=== PATIENT | male | born 1950 | race Caucasian/White ===

== ENCOUNTER → 2017-07-28 | Outpatient (CLI) | payer OTHER ==
[2017-07-28 12:04] LABS: BASO % 0.3 %; BASO ABS # 0.02 K/uL (0-0.2); COMPLETE YES; EOS % 2.6 %; HEMATOCRIT 45.1 % (42-52); IG% 0.2 %; LYMPH % 26.1 %; LYMPH ABS # 1.61 K/uL (1.2-3.4); MEAN CELL VOLUME 88.6 fL (80-100); MEAN CORPUSCULAR HEMOGLOBIN 31.2 pg (25-34); MEAN CORPUSCULAR HGB CONC 35.3 g/dl (32-36); MEAN PLATELET VOLUME 9.6 fL (7.4-10.4); MONO % 6.5 %; NEUT % 64.3 %; PLATELET COUNT 186 K/uL (130-400); RED BLOOD COUNT 5.09 M/uL (4.7-6.1); WHITE BLOOD COUNT 6.17 K/uL (4.8-10.8)
[2017-07-28 12:09] LABS: URINE APPEARANCE CLEAR (CLEAR); URINE BILIRUBIN NEG (NEG); URINE COLOR YELLOW; URINE EPITHELIAL CELL AUTO 20-30 /lpf (0-5); URINE NITRITE NEG (NEG); URINE SPECIFIC GRAVITY 1.012 (1.000-1.030); UROBILINOGEN NEG (NEG); ZZUR CULT IF INDIC CLEAN CATCH NO
[2017-07-28 12:12] LABS: MANUAL MICROSCOPIC REQUIRED? NO; REVIEW REQ? NO
[2017-07-28 12:24] LABS: ESTIMATED AVERAGE GLUCOSE 105 mg/dl; HA1C FLAG Normal (Normal)
[2017-07-28 12:41] LABS: ALT/SGPT 23 U/L (12-78); BLOOD UREA NITROGEN 21 mg/dl (7-18); BUN/CREATININE RATIO 17.1 (10-20); CALCIUM 9.8 mg/dl (8.5-10.1); CARBON DIOXIDE 32 mmol/L (21-32); CHLORIDE 105 mmol/L (98-107); CHOLESTEROL 179 mg/dl (0-200); GLUCOSE 104 mg/dl (70-99); MAGNESIUM 2.3 mg/dl (1.8-2.4); POTASSIUM 4.2 mmol/L (3.5-5.1); SODIUM 142 mmol/L (136-145); TRIGLYCERIDES 128 mg/dl (0-150); VERY LOW DENSITY LIPOPROT CALC 26 mg/dl
[2017-07-28 12:50] LABS: ALB/GLOB RATIO 1.2 (0.9-2); ALKALINE PHOSPHATASE 62 U/L (45-117); AST/SGOT 15 U/L (15-37); HDL CHOLESTEROL 45 mg/dl; LDL CHOLESTEROL CALCULATED 108 mg/dl
== END | disposition home or self-care (01) ==
LOC: C.LABBFT 07:54
PROVIDERS: ATTEND Internal Medicine
DX: I48.91 Unspecified atrial fibrillation (principal); R73.9 Hyperglycemia, unspecified; E78.5 Hyperlipidemia, unspecified; I10 Essential (primary) hypertension; Z12.5 Encounter for screening for malignant neoplasm of prostate

== ENCOUNTER 2023-03-17 19:11 | Inpatient (IN) ==
--- NOTE | 2023-03-17 19:18 | Emergency Department Note ---
Impression & Plan Renal failure, Prostate mass, Hypotension, Acute dehydration ED Provider Note NAME: LAZ LANDEROS AGE: 73 SEX: M : 1950 ARRIVES VIA: Ambulance INFORMANT: Patient, ED PROVIDER(S): Mick Keane MD CHIEF COMPLAINT: Fall, weakness MEDICAL DECISION MAKING: Patient presents due to concern for fall and weakness. EMS reported that office of aging was involved given the poor condition of the patient's mobile home. IV was established blood was obtained along with blood cultures and lactate. The patient does have a white count of 17 was ordered antibiotics. The patient's kidney function showed a creatinine of 9.8 with a BUN of 287. Potassium of 5.2. Patient is awake and does follow commands. CT noncontrast was ordered. I did speak with Dr. Pa with nephrology who recommended bicarb 150 mill equivalents and a liter of D5 to be given. I did ask nursing to obtain a bladder scan in case the patient was retaining. I did review the patient's CAT scan which did show urine in the bladder I did asked that a Link be placed. I did speak with the on-call hospital service Dr. Anderson and the patient was admitted to the medicine service. Do not believe it prudent at this time to rate control the patient's A-fib given the patient's likely significant dehydration. The patient has been ordered 2 L normal saline bolus but this had not yet been completed by the time he was admitted by the medicine service, patient did have mild anemia hemoglobin of 13. Normal platelet count. Patient CT did show bilateral hydroureteronephrosis with extension of the ureters to the level of the UVJ bilaterally. Likely urinary retention from possible ureteral stricture or abnormality involving the bladder wall. Prostate gland noted to be abnormal patient's troponin was 27.7. Critical Care: I have personally spent 37 minutes of critical care time in direct management of this patient. This includes bedside care, interpretation of diagnostic studies, and testing, discussion with consultants, patient, and family members, and other require inpatient management activities. This 37 minutes is in excess of all separately billable procedures. Prior /Outside records reviewed: None Differential diagnosis: ICH, acute renal failure, dehydration, sepsis, UTI, pneumonia, metabolic, electrolyte abnormalities, arrhythmia among others were considered Diagnostics, as interpreted by me: ECG: A-fib with RVR, rate 121, narrow QRS complex, normal axis no ST elevations. Cardiac monitoring: An order was placed for continuous cardiac monitoring. The monitor shows a rate of 122 with tachycardic and irregular irregular rhythm. Patient was placed on pulse oximetry Medical decision rules: None Imaging studies: See below HPI: Patient presents due to concern for possible fall. Patient reportedly had been visited by a friend he was not getting up and out of bed. He was not getting up to use the bathroom does present with EMS who was concerned about the patient's wellbeing as well as the state of his mobile home. Patient denies any head or neck pain but reportedly did have a fall and may have struck his head. The patient does not take blood thinners but has a known history of A-fib. Angi ent denies any abdominal pain. The patient does state he is generally weak. PAST MEDICAL HISTORY: See Below PAST SURGICAL HISTORY: See Below SOCIAL HISTORY: See Below HOME MEDICATIONS: See Below ALLERGIES: See Below VITALS: See Below PHYSICAL EXAMINATION: GENERAL: Fatigable in appearance, disheveled, wearing clothing covered in urine and feces. EYE EXAM: Normal conjunctiva. PERRL, no anisocoria and EOM's grossly intact w/o pain. Oropharynx: Dry mucous membranes, grossly normal dentition. NECK: Supple, no nuchal rigidity, no adenopathy, non-tender. No signs of meningismus. FROM of the neck with good chin to chest and neck extension. No stridor. LUNGS: Clear to auscultation. Normal chest wall mechanics. HEART: Irregular irregular and tachycardic, no MRG. ABDOMEN: Abdomen soft, non-tender, no masses, no rebound or guarding. BACK: No CVA TTP. SKIN: Areas of redness likely secondary to pressure over the buttock area without open sores UPPER EXTREMITIES: Upper extremities are grossly normal. LOWER EXTREMITIES: Grossly normal, no edema. NEURO EXAM: A&O x3, cranial nerves II-XII grossly intact, normal speech, moves all 4 extremities. Past Med/Surg History Medical History Abnormal blood chemistry Abnormal finding on thyroid function test Atrial fibrillation Hyperglycemia Hyperlipidemia Hypertension Male erectile disorder of organic origin Umbilical hernia Surgical History History of appendectomy History of cataract surgery History of tonsillectomy Family History Father Laryngeal cancer Social History Smoking Status: Former smoker Tobacco Type: Smokeless Tobacco (Dip or Chew) Second Hand Exposure: No; Do You Dip or Chew Tobacco: No; Tobacco Cessation Education Requested by Patient: No Hx Alcohol Use: No Hx Substance Use: No Preferred Language: Mongolian Communication Ability: Effective Production Planner Required: No Beliefs That Will Affect Care: None marital status: Single Current Living Situation: Alone Other Information That Helps Us Care for You: No Feels Safe at Home: Yes Safety Concerns: Feels Safe At This Time caffeine: No Dental Care, Regularly: No Physical Activity Frequency: Does not Exercise Seatbelt Use: never Sunscreen Use: Yes (Protective clothing ) Assistive Devices: Cane Allergies Allergies Allergy/AdvReac Type Severity Reaction Status Date / Time No Known Allergies Allergy Verified 03/17/23 20:42 Home Meds Home Medications Medication Instructions Recorded Confirmed amlodipine 10 mg tablet 10 mg PO QAM 03/17/23 03/17/23 hydrochlorothiazide 25 mg tablet 25 mg PO QAM 03/17/23 03/17/23 lisinopril 20 mg tablet 20 mg PO QAM 03/17/23 03/17/23 metoprolol succinate 100 mg 100 mg PO QAM 03/17/23 03/17/23 tablet,extended release 24 hr Results & Data (ED) Home Medications Current Medication List: was personally reviewed by me Laboratory Data Attestation: I reviewed the patient's lab results. 03/20/23 04:28 03/20/23 04:28 Lab Results 03/17/23 03/17/23 03/17/23 Range/Units 19:53 19:53 19:53 WBC 17.03 H (4.8-10.8) K/ul RBC 4.52 L (4.70-6.10) M/uL Hgb 13.1 L (14.0-18.0) g/dl Hct 37.4 L (42.0-52.0) % MCV 82.7 (80.0-100.0) fL MCH 29.0 (25.0-34.0) pg MCHC 35.0 (32.0-36.0) g/dL RDW Std Deviation 44.9 (36.4-46.3) fL RDW Coeff of Efrain 15.0 H (11.5-14.5) % Plt Count 374 (130-400) K/uL MPV 10.4 (9.4-12.4) fL Immature Gran % (Auto) 0.4 % Neut % (Auto) 85.6 % Lymph % (Auto) 8.2 % [place] % (Auto) 4.7 % Eos % (Auto) 0.8 % Baso % (Auto) 0.3 % Neut # (Auto) 14.58 H (1.40-6.50) K/uL Lymph # (Auto) 1.40 (1.2-3.4) K/uL [place] # (Auto) 0.80 H (0.11-0.59) K/uL Eos # (Auto) 0.14 (0-0.50) K/uL Baso # (Auto) 0.05 (0-0.2) K/uL Immature Gran # (Auto) 0.06 (0.01-0.20) K/uL Sodium 138 (136-145) mmol/L Potassium 5.2 H (3.5-5.1) mmol/L Chloride 101 (98-107) mmol/L Carbon Dioxide 13 L (21-32) mmol/L Anion Gap 24 H (3-11) BUN 287 H (6-23) mg/dl Creatinine 9.82 H* (0.6-1.4) mg/dl Est Cr Clr Drug Dosing 6.7 ml/min Est GFR ( Amer) 5.4 ml/min Est GFR (Non-Af Amer) 4.6 ml/min BUN/Creatinine Ratio 29.2 H (10-20) Glucose 123 H (70-99(Fasting)) mg/dl Lactate (0.4-2.0) mmol/L Calcium 8.5 L (8.6-10.3) mg/dl Total Bilirubin 0.7 (0.2-1.0) mg/dl AST 7 L (13-39) U/L ALT 10 (7-52) U/L Alkaline Phosphatase 79 (34-104) U/L Total Creatine Kinase 83 (30-223) U/L Troponin I High Sens 27.7 H (0-20) pg/ml Total Protein 8.5 H (6.0-8.3) gm/dl Albumin 3.4 (3.4-5.0) gm/dl Globulin 5.1 H (2.5-4.0) gm/dl Albumin/Globulin Ratio 0.7 L (0.9-2) TSH 4.192 (0.300-4.500) uIu/ml Urine Color Urine Appearance (Clear) Urine pH (4.5-7.5) Ur Specific [place] (1.000-1.030) Urine Protein (Negative) Urine Glucose (UA) (Negative) Urine Ketones (Negative) Urine Blood (Negative) Urine Nitrite (Negative) Urine Bilirubin (Negative) Urine Urobilinogen (Negative) Ur Leukocyte Esterase (Negative) Urine WBC (Auto) (0-5) /hpf Urine RBC (Auto) (0-4) /hpf U Hyaline Cast (Auto) (0-5) /lpf U Epithel Cells (Auto) (0-5) /lpf Urine Bacteria (Auto) (Negative) Nasal Screen MRSA (PCR) (Negative) SARS-CoV-2, RNA, NAAT (NEGATIVE) 03/17/23 03/17/23 03/17/23 Range/Units 19:55 20:53 21:12 WBC (4.8-10.8) K/ul RBC (4.70-6.10) M/uL Hgb (14.0-18.0) g/dl Hct (42.0-52.0) % MCV (80.0-100.0) fL MCH (25.0-34.0) pg MCHC (32.0-36.0) g/dL RDW Std Deviation (36.4-46.3) fL RDW Coeff of Efrain (11.5-14.5) % Plt Count (130-400) K/uL MPV (9.4-12.4) fL Immature Gran % (Auto) % Neut % (Auto) % Lymph % (Auto) % [place] % (Auto) % Eos % (Auto) % Baso % (Auto) % Neut # (Auto) (1.40-6.50) K/uL Lymph # (Auto) (1.2-3.4) K/uL [place] # (Auto) (0.11-0.59) K/uL Eos # (Auto) (0-0.50) K/uL Baso # (Auto) (0-0.2) K/uL Immature Gran # (Auto) (0.01-0.20) K/uL Sodium (136-145) mmol/L Potassium (3.5-5.1) mmol/L Chloride (98-107) mmol/L Carbon Dioxide (21-32) mmol/L Anion Gap (3-11) BUN (6-23) mg/dl Creatinine (0.6-1.4) mg/dl Est Cr Clr Drug Dosing ml/min Est GFR ( Amer) ml/min Est GFR (Non-Af Amer) ml/min BUN/Creatinine Ratio (10-20) Glucose (70-99(Fasting)) mg/dl Lactate 2.0 (0.4-2.0) mmol/L Calcium (8.6-10.3) mg/dl Total Bilirubin (0.2-1.0) mg/dl AST (13-39) U/L ALT (7-52) U/L Alkaline Phosphatase (34-104) U/L Total Creatine Kinase (30-223) U/L Troponin I High Sens (0-20) pg/ml Total Protein (6.0-8.3) gm/dl Albumin (3.4-5.0) gm/dl Globulin (2.5-4.0) gm/dl Albumin/Globulin Ratio (0.9-2) TSH (0.300-4.500) uIu/ml Urine Color Urine Appearance (Clear) Urine pH (4.5-7.5) Ur Specific [place] (1.000-1.030) Urine Protein (Negative) Urine Glucose (UA) (Negative) Urine Ketones (Negative) Urine Blood (Negative) Urine Nitrite (Negative) Urine Bilirubin (Negative) Urine Urobilinogen (Negative) Ur Leukocyte Esterase (Negative) Urine WBC (Auto) (0-5) /hpf Urine RBC (Auto) (0-4) /hpf U Hyaline Cast (Auto) (0-5) /lpf U Epithel Cells (Auto) (0-5) /lpf Urine Bacteria (Auto) (Negative) Nasal Screen MRSA (PCR) Negative (Negative) SARS-CoV-2, RNA, NAAT NEGATIVE (NEGATIVE) 03/17/23 Range/Units 22:05 WBC (4.8-10.8) K/ul RBC (4.70-6.10) M/uL Hgb (14.0-18.0) g/dl Hct (42.0-52.0) % MCV (80.0-100.0) fL MCH (25.0-34.0) pg MCHC (32.0-36.0) g/dL RDW Std Deviation (36.4-46.3) fL RDW Coeff of Efrain (11.5-14.5) % Plt Count (130-400) K/uL MPV (9.4-12.4) fL Immature Gran % (Auto) % Neut % (Auto) % Lymph % (Auto) % [place] % (Auto) % Eos % (Auto) % Baso % (Auto) % Neut # (Auto) (1.40-6.50) K/uL Lymph # (Auto) (1.2-3.4) K/uL [place] # (Auto) (0.11-0.59) K/uL Eos # (Auto) (0-0.50) K/uL Baso # (Auto) (0-0.2) K/uL Immature Gran # (Auto) (0.01-0.20) K/uL Sodium (136-145) mmol/L Potassium (3.5-5.1) mmol/L Chloride (98-107) mmol/L Carbon Dioxide (21-32) mmol/L Anion Gap (3-11) BUN (6-23) mg/dl Creatinine (0.6-1.4) mg/dl Est Cr Clr Drug Dosing ml/min Est GFR ( Amer) ml/min Est GFR (Non-Af Amer) ml/min BUN/Creatinine Ratio (10-20) Glucose (70-99(Fasting)) mg/dl Lactate (0.4-2.0) mmol/L Calcium (8.6-10.3) mg/dl Total Bilirubin (0.2-1.0) mg/dl AST (13-39) U/L ALT (7-52) U/L Alkaline Phosphatase (34-104) U/L Total Creatine Kinase (30-223) U/L Troponin I High Sens (0-20) pg/ml Total Protein (6.0-8.3) gm/dl Albumin (3.4-5.0) gm/dl Globulin (2.5-4.0) gm/dl Albumin/Globulin Ratio (0.9-2) TSH (0.300-4.500) uIu/ml Urine Color Yellow Urine Appearance Turbid A (Clear) Urine pH 5.5 (4.5-7.5) Ur Specific [place] 1.014 (1.000-1.030) Urine Protein 2+ H (Negative) Urine Glucose (UA) Negative (Negative) Urine Ketones Negative (Negative) Urine Blood 3+ H (Negative) Urine Nitrite Negative (Negative) Urine Bilirubin Negative (Negative) Urine Urobilinogen Negative (Negative) Ur Leukocyte Esterase 3+ H (Negative) Urine WBC (Auto) >30 H (0-5) /hpf Urine RBC (Auto) 0-4 (0-4) /hpf U Hyaline Cast (Auto) 0 (0-5) /lpf U Epithel Cells (Auto) 10-20 H (0-5) /lpf Urine Bacteria (Auto) 2+ H (Negative) Nasal Screen MRSA (PCR) (Negative) SARS-CoV-2, RNA, NAAT (NEGATIVE) Administered Medications Heparin Sodium (Porcine) (Heparin Sod 5,000 Unit/0.5 Ml Vial) 5,000 units SQ Q12 [facility] Stop: 04/17/23 08:59 Last Admin: 03/18/23 20:08 Dose: 5,000 units Documented By: Admin: 03/18/23 08:00 Dose: 5,000 units Documented By: GPF Phenylephrine HCl (Phenylephrine/Nss) 25 mg in 250 mls @ 25.05 mls/hr IV .Q9H59M [facility]; Protocol Stop: 04/17/23 02:29 Last Titration: 03/20/23 08:32 Dose: 0.1 mcg/kg/min, 5 mls/hr Documented By: ACACIA Co-signed By: AKBAR Titration: 03/20/23 07:38 Dose: 0.2 mcg/kg/min, 10 mls/hr Documented By: ACACIA Co-signed By: [id number] Titration: 03/19/23 19:14 Dose: 0.3 mcg/kg/min, 15 mls/hr Documented By: CF Co-signed By: JOY Admin: 03/19/23 18:11 Dose: 0.3 mcg/kg/min, 15 mls/hr Documented By: JOY Co-signed By: ES Titration: 03/19/23 17:47 Dose: 0.5 mcg/kg/min, 25.1 mls/hr Documented By: JOY Co-signed By: ES Titration: 03/19/23 17:25 Dose: 0.5 mcg/kg/min, 25.1 mls/hr Documented By: JOY Co-signed By: ES Titration: 03/19/23 12:13 Dose: 0.7 mcg/kg/min, 35.1 mls/hr Documented By: JOY Co-signed By: ES Admin: 03/19/23 10:55 Dose: 0.9 mcg/kg/min, 45.1 mls/hr Documented By: JOY Co-signed By: JBH Titration: 03/19/23 10:54 Dose: 0.9 mcg/kg/min, 45.1 mls/hr Documented By: JOY Co-signed By: JBH Titration: 03/19/23 06:56 Dose: 0.9 mcg/kg/min, 45.1 mls/hr Documented By: JOY Co-signed By: JLP Titration: 03/19/23 05:47 Dose: 0.9 mcg/kg/min, 45.1 mls/hr Documented By: SHANNONP Co-signed By: TP Admin: 03/19/23 05:14 Dose: 0.7 mcg/kg/min, 35.1 mls/hr Documented By: JLP Co-signed By: TP Titration: 03/19/23 05:07 Dose: 0.7 mcg/kg/min, 35.1 mls/hr Documented By: JLP Co-signed By: TP Admin: 03/18/23 21:59 Dose: 0.7 mcg/kg/min, 35.1 mls/hr Documented By: JLP Co-signed By: TP Titration: 03/18/23 21:35 Dose: 0.5 mcg/kg/min, 25.1 mls/hr Documented By: JLP Co-signed By: TP Titration: 03/18/23 18:57 Dose: 0.5 mcg/kg/min, 25.1 mls/hr Documented By: GPF Co-signed By: JLP Titration: 03/18/23 17:35 Dose: 0.5 mcg/kg/min, 25.1 mls/hr Documented By: GPF Co-signed By: LDS Titration: 03/18/23 14:20 Dose: 0.3 mcg/kg/min, 15 mls/hr Documented By: GPF Co-signed By: CB Titration: 03/18/23 11:38 Dose: 0 mcg/kg/min, 0 mls/hr Documented By: GPF Co-signed By: DIANA Titration: 03/18/23 11:08 Dose: 0.3 mcg/kg/min, 15 mls/hr Documented By: GPF Co-signed By: CB Titration: 03/18/23 09:30 Dose: 0.5 mcg/kg/min, 25.1 mls/hr Documented By: GPF Co-signed By: DIANA Admin: 03/18/23 08:00 Dose: 0.7 mcg/kg/min, 35.1 mls/hr Documented By: GPF Co-signed By: DIANA Titration: 03/18/23 08:00 Dose: 0.7 mcg/kg/min, 35.1 mls/hr Documented By: GPF Co-signed By: DIANA Titration: 03/18/23 06:17 Dose: 0.7 mcg/kg/min, 35.1 mls/hr Documented By: TG Co-signed By: AMB Titration: 03/18/23 03:00 Dose: 0.9 mcg/kg/min, 45.1 mls/hr Documented By: TG Co-signed By: AMB Titration: 03/18/23 02:45 Dose: 0.7 mcg/kg/min, 35.1 mls/hr Documented By: TG Co-signed By: AMB Admin: 03/18/23 02:27 Dose: 0.5 mcg/kg/min, 25.1 mls/hr Documented By: TG Co-signed By: ORLANDO Ceftriaxone Sodium 2,000 mg/ (Dextrose) 70 mls @ 140 mls/hr IV DAILY@1800 [facility] Stop: 03/28/23 17:59 Last Infusion: 03/19/23 18:01 Dose: 0 mls/hr Documented By: Admin: 03/19/23 17:31 Dose: 140 mls/hr Documented By: Infusion: 03/18/23 18:45 Dose: 0 mls/hr Documented By: Admin: 03/18/23 18:14 Dose: 140 mls/hr Documented By: GPF Parenteral Electrolytes (Plasma-Lyte A Ph 7.4) 1,000 mls @ 75 mls/hr IV .[id number] [facility] Stop: 04/17/23 18:14 Last Admin: 03/20/23 08:32 Dose: 75 mls/hr Documented By: Infusion: 03/20/23 08:32 Dose: 75 mls/hr Documented By: Admin: 03/19/23 22:20 Dose: 75 mls/hr Documented By: Infusion: 03/19/23 22:20 Dose: 75 mls/hr Documented By: Admin: 03/19/23 09:17 Dose: 75 mls/hr Documented By: Infusion: 03/19/23 07:35 Dose: 75 mls/hr Documented By: Admin: 03/18/23 18:15 Dose: 75 mls/hr Documented By: GPF Amiodarone HCl/Dextrose (Nexterone / D5w) 360 mg in 200 mls @ 16.667 mls/hr IV .Q12H [facility] Stop: 04/18/23 09:14 Last Admin: 03/20/23 08:32 Dose: 0.5 mg/min, 16.7 mls/hr Documented By: ACACIA Co-signed By: ES Infusion: 03/20/23 08:20 Dose: 0.5 mg/min, 16.7 mls/hr Documented By: ACACIA Co-signed By: ES Admin: 03/19/23 20:21 Dose: 0.5 mg/min, 16.7 mls/hr Documented By: PARKER Co-signed By: BRA Infusion: 03/19/23 20:21 Dose: 0.5 mg/min, 16.7 mls/hr Documented By: CF Co-signed By: BRA Admin: 03/19/23 09:17 Dose: 0.5 mg/min, 16.7 mls/hr Documented By: JOY Co-signed By: ES Pantoprazole Sodium 40 mg/ (Syringe) 10 mls @ 5 mls/min IV DAILY@1100 [facility] Stop: 04/18/23 10:59 Last Admin: 03/19/23 10:48 Dose: 5 mls/min Documented By: JOY Insulin Aspart (Insulin Aspart Per Unit Charge) 0 units SC ACHS [facility] Stop: 04/17/23 07:29 Last Admin: 03/20/23 07:37 Dose: Not Given Documented By: Admin: 03/19/23 20:18 Dose: 1 units Documented By: PARKER Co-signed By: MALISSA Admin: 03/19/23 18:03 Dose: 4 units Documented By: JOY Co-signed By: AKBAR Admin: 03/19/23 11:42 Dose: 2 units Documented By: JOY Co-signed By: HASMUKH Admin: 03/19/23 09:17 Dose: Not Given Documented By: JOY Co-signed By: AKBAR Admin: 03/18/23 20:07 Dose: 2 units Documented By: DANA Co-signed By: SHANNON Admin: 03/18/23 16:39 Dose: Not Given Documented By: Admin: 03/18/23 13:03 Dose: Not Given Documented By: Admin: 03/18/23 08:00 Dose: Not Given Documented By: DAQUAN Metoclopramide HCl (Metoclopramide Hcl Inj 5 Mg/Ml 2 Ml Vial) 10 mg IV Q6H PRN PRN Reason: Nausea Stop: 04/19/23 08:47 Last Admin: 03/20/23 09:00 Dose: 10 mg Documented By: ACACIA Tamsulosin HCl (Tamsulosin Hcl 0.4 Mg Cap) 0.4 mg PO HS [facility] Stop: 04/17/23 20:59 Last Admin: 03/18/23 20:08 Dose: 0.4 mg Documented By: DANA Discontinued Medications Amiodarone HCl/Dextrose (Amiodarone 360mg / 200ml D5w) Confirm Administered Dose 360 mg IV .STK-MED ONE Stop: 03/19/23 03:26 Last Admin: 03/19/23 20:19 Dose: Not Given Documented By: PARKER Sodium Chloride (Nss 1000ml) 1,000 mls @ 999 mls/hr IV .Q1H1M [facility] Stop: 03/17/23 20:30 Last Infusion: 03/17/23 23:14 Dose: 0 mls/hr Documented By: Admin: 03/17/23 19:52 Dose: 999 mls/hr Documented By: Piperacillin Sod/Tazobactam Sod (Zosyn) 4.5 gm in 120 mls @ 240 mls/hr IV NOW ONE Stop: 03/17/23 20:37 Last Infusion: 03/17/23 23:13 Dose: 0 mls/hr Documented By: [facility] Admin: 03/17/23 20:46 Dose: 240 mls/hr Documented By: JOELLE Sodium Chloride (Nss 1000ml) 1,000 mls @ 999 mls/hr IV .Q1H1M ONE Stop: 03/17/23 21:08 Last Infusion: 03/17/23 23:13 Dose: 0 mls/hr Documented By: [facility] Admin: 03/17/23 21:48 Dose: 999 mls/hr Documented By: DREW Sodium Bicarbonate 150 meq/ (Dextrose) 1,150 mls @ 200 mls/hr IV .Q5H45M [facility] Stop: 04/16/23 21:14 Last Infusion: 03/18/23 02:14 Dose: 0 mls/hr Documented By: Infusion: 03/18/23 02:13 Dose: 0 mls/hr Documented By: Admin: 03/17/23 21:57 Dose: 200 mls/hr Documented By: DREW Calcium Gluconate () 1,000 mg in 60 mls @ 240 mls/hr IV NOW STA Stop: 03/17/23 21:22 Last Infusion: 03/17/23 23:13 Dose: 0 mls/hr Documented By: Admin: 03/17/23 21:48 Dose: 240 mls/hr Documented By: DREW Piperacillin Sod/Tazobactam (Sod 4.5 gm/ Dextrose) 120 mls @ 30 mls/hr IV Q12H [facility]; Protocol Stop: 03/20/23 05:59 Last Infusion: 03/18/23 10:09 Dose: 0 mls/hr Documented By: Admin: 03/18/23 06:16 Dose: 30 mls/hr Documented By: STARR Sodium Bicarbonate 100 meq/ (Dextrose) 1,100 mls @ 200 mls/hr IV .Q5H30M [facility] Stop: 04/17/23 01:59 Last Infusion: 03/18/23 06:18 Dose: 0 mls/hr Documented By: Admin: 03/18/23 02:11 Dose: 200 mls/hr Documented By: TG Amiodarone HCl/Dextrose (Nexterone / D5w) 360 mg in 200 mls @ 33.333 mls/hr IV ONE ONE; Protocol Stop: 03/18/23 08:45 Last Infusion: 03/18/23 08:48 Dose: 0 mg/min, 0 mls/hr Documented By: GPF Co-signed By: CB Admin: 03/18/23 03:10 Dose: 1 mg/min, 33.3 mls/hr Documented By: TG Co-signed By: SG Lactated Ringer's (Lr) 1,000 mls @ 150 mls/hr IV .Q6H40M [facility] Stop: 03/18/23 13:00 Last Infusion: 03/18/23 14:26 Dose: 0 mls/hr Documented By: Infusion: 03/18/23 10:10 Dose: 150 mls/hr Documented By: Admin: 03/18/23 05:57 Dose: 125 mls/hr Documented By: TG Lactated Ringer's (Lr) 500 mls @ 999 mls/hr IV .Q31M ONE Stop: 03/18/23 06:57 Last Infusion: 03/18/23 08:06 Dose: 0 mls/hr Documented By: Admin: 03/18/23 06:49 Dose: 999 mls/hr Documented By: TG Parenteral Electrolytes (Plasma-Lyte A Ph 7.4) 1,000 mls @ 125 mls/hr IV .Q8H [facility] Stop: 04/17/23 12:59 Last Infusion: 03/18/23 18:11 Dose: 0 mls/hr Documented By: Admin: 03/18/23 14:22 Dose: 125 mls/hr Documented By: GPF Amiodarone HCl/Dextrose (Nexterone / D5w) 360 mg in 200 mls @ 33.333 mls/hr IV ONE ONE; Protocol Stop: 03/19/23 09:07 Last Infusion: 03/19/23 09:27 Dose: 0 mg/min, 0 mls/hr Documented By: KJL Co-signed By: ES Admin: 03/19/23 03:26 Dose: 1 mg/min, 33.3 mls/hr Documented By: DANA Co-signed By: TP Magnesium Sulfate/Dextrose (Magnesium Sulfate / D5w) 1 gm in 100 mls @ 50 mls/hr IV Q2H [facility] Stop: 03/19/23 13:59 Last Infusion: 03/19/23 14:37 Dose: 0 mls/hr Documented By: Admin: 03/19/23 12:34 Dose: 50 mls/hr Documented By: Infusion: 03/19/23 12:34 Dose: 50 mls/hr Documented By: Admin: 03/19/23 10:48 Dose: 50 mls/hr Documented By: JOY Metoclopramide HCl (Metoclopramide Hcl Inj 5 Mg/Ml 2 Ml Vial) 10 mg IV NOW STA Stop: 03/19/23 14:18 Last Admin: 03/19/23 14:38 Dose: 10 mg Documented By: JOY Metoprolol Tartrate (Metoprolol Tartrate 1 Mg/Ml Vial) 2.5 mg IV Q4H NEY Stop: 04/17/23 01:59 Last Admin: 03/18/23 03:26 Dose: Not Given Documented By: STARR Hernández (Stat Iv) 1 each N/A NOW STA Stop: 03/17/23 21:04 Last Admin: 03/19/23 11:43 Dose: Not Given Documented By: JOY Marquezaneous (Icu Protocol For Hyperglycemia) 1 each N/A ACHS NEY Stop: 03/20/23 07:29 Last Admin: 03/18/23 08:00 Dose: 1 each Documented By: DAQUAN Ondansetron HCl (Ondansetron Inj 2 Mg/Ml 2 Ml Vial) 4 mg IV NOW STA Stop: 03/19/23 11:25 Last Admin: 03/19/23 11:35 Dose: 4 mg Documented By: JOY Potassium Chloride (Potassium Chloride Crtab 20 Meq Tabcr) 20 meq PO NOW STA Stop: 03/20/23 08:29 Last Admin: 03/20/23 08:32 Dose: 20 meq Documented By: ACACIA Imaging Data Radiologist's Impression: Cervical Spine CT 03/17/23 19:24 CT cervical spine wo con CT DOSE: 1551.84 mGy.cm CLINICAL HISTORY: 73 years-old Male with fall. Acute head and neck trauma status post fall COMPARISON: Head CT of same day TECHNIQUE: Multiple axial CT images of the cervical spine were obtained without contrast. A dose lowering technique was utilized adhering to the principles of ALARA. FINDINGS: Multilevel degenerative changes. No acute cervical spine fracture or subluxation identified. Chronic appearing deformity involves the posterior arch of C1. The cervical soft tissues appear unremarkable. The visualized lung apices appear clear. IMPRESSION: No acute cervical spine fracture or subluxation. ACT 112: Negative or not required by law. The above report was generated using voice recognition software. It may contain grammatical, syntax or spelling errors. Electronically signed by: Choco Nicholas M.D. 03/17/2023 8:46 PM Chest X-Ray 03/17/23 19:24 XR chest 1V portable HISTORY: 73 years-old Male weakness acute weakness COMPARISON: None TECHNIQUE: AP view of the chest FINDINGS: Nipple shadow projects over the left lung base. Limited exam secondary to positioning. Cardiac silhouette is enlarged. No pneumothorax, pleural effusion, airspace consolidation or pulmonary edema. 6 mm nodular density projects over the left midlung, possibly a calcified granuloma. IMPRESSION: No acute process. ACT 112: Negative or not required by law. The above report was generated using voice recognition software. It may contain grammatical, syntax or spelling errors. Electronically signed by: Choco Nicholas M.D. 03/17/2023 7:[address] 03/17/23 19:24 CT head/brain wo con CLINICAL HISTORY: 73 years-old Male with fall. Acute head trauma status post fall TECHNIQUE: Multiple axial CT images of the head were obtained without contrast. A dose lowering technique was utilized adhering to the principles of ALARA. COMPARISON: CT cervical spine of same day. FINDINGS: No acute intracranial hemorrhage, midline shift, intracranial mass, hydrocephalus, territorial ischemia or abnormal extra-axial collection. Involutional changes with chronic microvascular ischemic disease. The calvarium is intact. Mastoid air cells are clear. Chronic appearing defor mity involving the posterior arch of C1. 5.1 x 3.5 cm mixed attenuating polypoid lesion involves the left nasal turbinate, maxillary sinus and posterior nasal aperture. IMPRESSION: 1. No acute intracranial abnormality or calvarial fracture. 2. Polyploid mucosal thickening versus lesion of the left maxillary sinus, adjacent nasal turbinate and posterior nasal aperture measures up to 5.1 cm. F ollow-up ENT consultation recommended. ACT 112: Negative or not required by law. The above report was generated using voice recognition software. It may contain grammatical, syntax or spelling errors. Electronically signed by: Choco Nicholas M.D. 03/17/2023 8:49 PM Abdomen/Pelvis CT 03/17/23 21:03 Exam(s): CT ABDOMEN + PELVIS Without Contrast EXAM: CT Abdomen and Pelvis Without Intravenous Contrast CLINICAL HISTORY: r/o obstruction. TECHNIQUE: Axial computed tomography images of the abdomen and pelvis without intravenous contrast. CTDI is 20.25 mGy and DLP is 1170.18 mGy-cm. Automated exposure control was utilized for the study. A dose lowering technique was utilized adhering to the principles of ALARA. COMPARISON: No relevant prior studies available. FINDINGS: Lung bases: Unremarkable. No mass. No consolidation. ABDOMEN: Liver: Unremarkable. Gallbladder and bile ducts: A solitary calcified gallstone is noted in the gallbladder, measuring 13 mm. The gallbladder is fully distended without gallbladder wall thickening or biliary dilatation. Pancreas: Unremarkable. No ductal dilation. Spleen: Unremarkable. No splenomegaly. Adrenals: Unremarkable. No mass. Kidneys and ureters: There is moderate bilateral hydroureteronephrosis with distention of the ureters to the level of the UVJ bilaterally. Stomach and bowel: No definite evidence for focal high-grade bowel obstruction. PELVIS: Appendix: No findings to suggest acute appendicitis. Bladder: Slightly asymmetric bladder wall thickening, more prominent along the posterior and right lateral aspect of the bladder with some lobulation, measuring up to 5 mm in thickness. There is a right lateral bladder diverticulum measuring 2.5 cm. No stones. Reproductive: The prostate gland is abnormal with an ovoid hypodense area along the left lateral aspect of the bladder estimated at 2.5 x 2.5 x 3.1 cm. No prosthetic hypertrophy identified. ABDOMEN and PELVIS: Intraperitoneal space: Unremarkable. No free air. No significant fluid collection. Bones/joints: No acute fracture. No dislocation. Soft tissues: An umbilical ventral wall hernia is noted containing a normal caliber loop of small bowel. No mucosal thickening or inflammatory changes identified. Vasculature: Fusiform ectasia of the infrarenal aorta, measuring up to 3.4 cm in diameter. Mild calcification. No acute abnormality. No abdominal aortic aneurysm. Lymph nodes: Unremarkable. No enlarged lymph nodes. Other findings: Internal static calcifications noted. IMPRESSION: 1. No definite evidence for focal high-grade bowel obstruction. Umbilical hernia contains nondilated small bowel loops without fat stranding or evidence for mucosal thickening. The clinical significance of this finding is indeterminant and this may be incidental. No free intraperitoneal fluid or pneumoperitoneum. 2. There is moderate bilateral hydroureteronephrosis with distention of the ureters to the level of the UVJ bilaterally. Suspect developing urinary retention, either from distal ureteral structure or infiltrating abnormality involving the bladder wall discussed below. 3. Slightly asymmetric bladder wall thickening, more prominent along the posterior and right lateral aspect of the bladder with some lobulation, measuring up to 5 mm in thickness. There is a right lateral bladder diverticulum measuring 2.5 cm. Differential consideration regarding the bladder wall may represent developing hypertrophic changes or subtle infiltrating neoplastic process. 4. The prostate gland is abnormal with an ovoid hypodense area along the left lateral aspect of the bladder estimated at 2.5 x 2.5 x 3.1 cm. No prosthetic hypertrophy identified. Differential consideration includes a prostatic cyst or cystic mass. Electronically signed by: Sha Wei MD 03/17/23 21:55 PM Discharge Plan Visit Data Chief Complaint: Fall Stated Complaint: Fall, Hit Head ED Provider: Mick Keane Discharge Problem: Renal failure, Prostate mass, Hypotension, Acute dehydration Patient Disposition: Admitted As Inpatient Discharge Instructions Interventions: ED Discharge Assessment Last Done: 03/17/23 23:52
[2023-03-17] MEDS ORDERED: SODIUM CHLORIDE 0.9% 1000ML 1,000 ML IV SCH (19:30)
--- NOTE | 2023-03-17 19:56 | XRay Report ---
XR chest 1V portable HISTORY: 73 years-old Male weakness acute weakness COMPARISON: None TECHNIQUE: AP view of the chest FINDINGS: Nipple shadow projects over the left lung base. Limited exam secondary to positioning. Cardiac silhou ette is enlarged. No pneumothorax, pleural effusion, airspace consolidation or pulmonary edema. 6 mm nodular density projects over the left midlung, possibly a calcified granuloma. IMPRESSION: No acute process. ACT 112: Negative or not required by law. The above report was generated using voice recognition software. It may contain grammatical, syntax o r spelling errors. Electronically signed by: Choco Nicholas M.D. 03/17/2023 7:55 PM
[2023-03-17 20:05] LABS: Basophils # (auto) 0.05 K/uL (0-0.2); Basophils % (auto) 0.3 %; Eosinophils # (auto) 0.14 K/uL (0-0.50); Eosinophils % (auto) 0.8 %; Hematocrit (blood only) 37.4 % (42.0-52.0); Hemoglobin 13.1 g/dl (14.0-18.0); Immature Granulocytes # (auto) 0.06 K/uL (0.01-0.20); Immature Granulocytes % (auto) 0.4 %; Lymphocytes % (auto) 8.2 %; Mean Corpuscular Volume 82.7 fL (80.0-100.0); Mean Platelet Volume 10.4 fL (9.4-12.4); Monocytes % (auto) 4.7 %; Neutrophils # (auto) 14.58 K/uL (1.40-6.50); Neutrophils % (auto) 85.6 %; Platelet Count 374 K/uL (130-400); RDW Standard Deviation 44.9 fL (36.4-46.3); Red Blood Count 4.52 M/uL (4.70-6.10); White Blood Count 17.03 K/ul (4.8-10.8)
[2023-03-17] MEDS ORDERED: SODIUM CHLORIDE 0.9% 1000ML 1,000 ML IV ONE (20:08)
[2023-03-17] MEDS ORDERED: PIPERACILLIN/TAZOBACTAM 4.5 GM/120 ML BAG IV ONE (20:08)
[2023-03-17 20:27] LABS: Albumin Level 3.4 gm/dl (3.4-5.0); Bilirubin,Total 0.7 mg/dl (0.2-1.0); Calcium 8.5 mg/dl (8.6-10.3); Potassium 5.2 mmol/L (3.5-5.1)
[2023-03-17 20:31] LABS: Troponin I High Sensitivity 27.7 pg/ml (0-20)
--- NOTE | 2023-03-17 20:48 | CT Scan Report ---
CT cervical spine wo con CT DOSE: 1551.84 mGy.cm CLINICAL HISTORY: 73 years-old Male with fall. Acute head and neck trauma status post fall COMPARISON: Head CT of same day TECHNIQUE: Multiple axial CT images of the cervical spine were obtained without contrast. A dose low ering technique was utilized adhering to the principles of ALARA. FINDINGS: Multilevel degenerative changes. No acute cervical spine fracture or subluxation identified . Chronic appearing deformity involves the posterior arch of C1. The cervical soft tissues appear unr emarkable. The visualized lung apices appear clear. IMPRESSION: No acute cervical spine fracture or subluxation. ACT 112: Negative or not required by law. The above report was generated using voice recognition software. It may contain grammatical, syntax o r spelling errors. Electronically signed by: Choco Nicholas M.D. 03/17/2023 8:46 PM
--- NOTE | 2023-03-17 20:51 | CT Scan Report ---
CT head/brain wo con CLINICAL HISTORY: 73 years-old Male with fall. Acute head trauma status post fall TECHNIQUE: Multiple axial CT images of the head were obtained without contrast. A dose lowering tech nique was utilized adhering to the principles of ALARA. COMPARISON: CT cervical spine of same day. FINDINGS: No acute intracranial hemorrhage, midline shift, intracranial mass, hydrocephalus, territorial ischem ia or abnormal extra-axial collection. Involutional changes with chronic microvascular ischemic disea se. The calvarium is intact. Mastoid air cells are clear. Chronic appearing deformity involving the post erior arch of C1. 5.1 x 3.5 cm mixed attenuating polypoid lesion involves the left nasal turbinate, m axillary sinus and posterior nasal aperture. IMPRESSION: 1. No acute intracranial abnormality or calvarial fracture. 2. Polyploid mucosal thickening versus lesion of the left maxillary sinus, adjacent nasal turbinate a nd posterior nasal aperture measures up to 5.1 cm. Follow-up ENT consultation recommended. ACT 112: Negative or not required by law. The above report was generated using voice recognition software. It may contain grammatical, syntax o r spelling errors. Electronically signed by: Choco Nicholas M.D. 03/17/2023 8:49 PM
[2023-03-17 20:56] LABS: Albumin Globulin Ratio 0.7 (0.9-2); BUN Creatinine Ratio 29.2 (10-20); Creatinine Clr Calc Pharmacy 6.7 ml/min; Est GFR (African American) 5.4 ml/min; Est GFR (Non-African American) 4.6 ml/min; Globulin 5.1 gm/dl (2.5-4.0); Total Protein 8.5 gm/dl (6.0-8.3)
[2023-03-17] MEDS ORDERED: STAT IV STA (21:03)
[2023-03-17] MEDS ORDERED: CALCIUM GLUCONATE 1,000 MG/60 ML BAG IV STA (21:08)
[2023-03-17] MEDS ORDERED: SODIUM BICARBONATE 8.4% 150 MEQ in DEXTROSE 5% 1,000 ML IV SCH (21:15)
--- NOTE | 2023-03-17 21:57 | CT Scan Report ---
Exam(s): CT ABDOMEN + PELVIS Without Contrast EXAM: CT Abdomen and Pelvis Without Intravenous Contrast CLINICAL HISTORY: r/o obstruction. TECHNIQUE: Axial computed tomography images of the abdomen and pelvis without intravenous contrast. CTDI is 20.25 mGy and DLP is 1170.18 mGy-cm. Automated exposure control was utilized for the study. A dose lowering technique was utilized adhering to the principles of ALARA. COMPARISON: No relevant prior studies available. FINDINGS: Lung bases: Unremarkable. No mass. No consolidation. ABDOMEN: Liver: Unremarkable. Gallbladder and bile ducts: A solitary calcified gallstone is noted in the gallbladder, measuring 13 mm. The gallbladder is fully distended without gallbladder wall thickening or biliary dilatation. Pancreas: Unremarkable. No ductal dilation. Spleen: Unremarkable. No splenomegaly. Adrenals: Unremarkable. No mass. Kidneys and ureters: There is moderate bilateral hydroureteronephrosis with distention of the ureters to the level of the UVJ bilaterally. Stomach and bowel: No definite evidence for focal high-grade bowel obstruction. PELVIS: Appendix: No findings to suggest acute appendicitis. Bladder: Slightly asymmetric bladder wall thickening, more prominent along the posterior and right lateral aspect of the bladder with some lobulation, measuring up to 5 mm in thickness. There is a right lateral bladder diverticulum measuring 2.5 cm. No stones. Reproductive: The prostate gland is abnormal with an ovoid hypodense area along the left lateral aspect of the bladder estimated at 2.5 x 2.5 x 3.1 cm. No prosthetic hypertrophy identified. ABDOMEN and PELVIS: Intraperitoneal space: Unremarkable. No free air. No significant fluid collection. Bones/joints: No acute fracture. No dislocation. Soft tissues: An umbilical ventral wall hernia is noted containing a normal caliber loop of small bowel. No mucosal thickening or inflammatory changes identified. Vasculature: Fusiform ectasia of the infrarenal aorta, measuring up to 3.4 cm in diameter. Mild calcification. No acute abnormality. No abdominal aortic aneurysm. Lymph nodes: Unremarkable. No enlarged lymph nodes. Other findings: Internal static calcifications noted. IMPRESSION: 1. No definite evidence for focal high-grade bowel obstruction. Umbilical hernia contains nondilated small bowel loops without fat stranding or evidence for mucosal thickening. The clinical significance of this finding is indeterminant and this may be incidental. No free intraperitoneal fluid or pneumoperitoneum. 2. There is moderate bilateral hydroureteronephrosis with distention of the ureters to the level of the UVJ bilaterally. Suspect developing urinary retention, either from distal ureteral structure or infiltrating abnormality involving the bladder wall discussed below. 3. Slightly asymmetric bladder wall thickening, more prominent along the posterior and right lateral aspect of the bladder with some lobulation, measuring up to 5 mm in thickness. There is a right lateral bladder diverticulum measuring 2.5 cm. Differential consideration regarding the bladder wall may represent developing hypertrophic changes or subtle infiltrating neoplastic process. 4. The prostate gland is abnormal with an ovoid hypodense area along the left lateral aspect of the bladder estimated at 2.5 x 2.5 x 3.1 cm. No prosthetic hypertrophy identified. Differential consideration includes a prostatic cyst or cystic mass. Electronically signed by: Sha Wei MD 03/17/23 21:55 PM
--- NOTE | 2023-03-17 22:13 | History & Physical Report ---
Date of Service March 17, 2023 Assessment & Plan (1) Renal failure: Plan: 73yo Male with PMH afib HTN and HLD here for fall illness found to have renal failure. Renal Failure in the setting of BPH with UTI -creat 9.82 new, BUN 287, K 5.2 -lactate 2 -WBC 17.03, anion gap 24 -difficult card, placed with purulent urine -Ucx pending -In ED received calcium gluconate, NSS 2L, zosyn, sodium bicarb -CT A/P: There is moderate bilateral hydroureteronephrosis with distention of the ureters to the level of the UVJ bilaterally. Suspect developing urinary retention, either from distal ureteral structure or infiltrating abnormality involving the bladder wall discussed below. Slightly asymmetric bladder wall thickening, more prominent along the posterior and right lateral aspect of the bladder with some lobulation, measuring up to 5 mm in thickness. There is a right lateral bladder diverticulum measuring 2.5 cm. The prostate gland is abnormal with an ovoid hypodense area along the left lateral aspect of the bladder estimated at 2.5 x 2.5 x 3.1 cm. No prosthetic hypertrophy identified. -given renal failure hypotension and anion gap, admitted to ICU -BMP q4h -continue empiric zosyn at this time -ordered tamsulosin Prostate Mass -consult placed to Urology for prostate mass Elevated trop -27.7, recheck pending -likely 2/2 to above, afib Housing Issue -at this time patient lives alone noncompliant with medication has difficulty with self care eating drinking hygiene, family aware Afib -metoprolol on hold given hypotension HTN -home medications on hold given hypotension 84/59 HLD -ordered lipid panel, A1c FENa: regular Code Status: Full, POA daughter Marlon DVT PPX: lovenox PT/OT: ordered Case Management: unable to live by himself Dispo: ICU Shannan Quiros D.O. PGY 2, FCM (2) Atrial fibrillation: (3) Hyperlipidemia: (4) Hypertension: History of Present Illness Chief Complaint: Renal Failure Primary Care Provider: Harish Mantilla MD 73yo Male with PMH afib HTN and HLD here for fall illness found to have renal failure. Per EMS patient was with his friend in a mobile home, when they arrived patient was found in his own feces, has not been eating drinking taking his medications regularly. Patient states he has been feeling sick for the past 3-4 weeks, describes weakness lethargy dizziness occasional nausea, may have fallen and hit his head this past wednesday. He denies SOB or fever. He understands he is on medication for HTN, states he takes them when he feels like it. Family reports he has not been eating or drinking regularly recently. Patient states he last peed this afternoon, usually does not have difficulty with urination but has difficulty reaching the bathroom on time. He does not know when he last saw his PCP. Family updated at bedside. MIC is daughter Marlon Allergies Allergy/AdvReac Type Severity Reaction Status Date / Time No Known Allergies Allergy Verified 03/17/23 20:42 Home Medications Medication Instructions Recorded Confirmed Type amlodipine 10 mg tablet 10 mg PO QAM 03/17/23 03/17/23 History hydrochlorothiazide 25 mg tablet 25 mg PO QAM 03/17/23 03/17/23 History lisinopril 20 mg tablet 20 mg PO QAM 03/17/23 03/17/23 History metoprolol succinate 100 mg 100 mg PO QAM 03/17/23 03/17/23 History tablet,extended release 24 hr Past Med/Surg History Medical History Abnormal blood chemistry Abnormal finding on thyroid function test Atrial fibrillation Hyperglycemia Hyperlipidemia Hypertension Male erectile disorder of organic origin Umbilical hernia Surgical History History of appendectomy History of cataract surgery History of tonsillectomy Family History Father Laryngeal cancer Social History Smoking Status: Former smoker Tobacco Type: Smokeless Tobacco (Dip or Chew) Second Hand Exposure: No; Do You Dip or Chew Tobacco: No; Tobacco Cessation Education Requested by Patient: No Hx Alcohol Use: No Hx Substance Use: No Preferred Language: Serbian Communication Ability: Effective Wind Up Operator Required: No Beliefs That Will Affect Care: None marital status: Single Current Living Situation: Alone Other Information That Helps Us Care for You: No Feels Safe at Home: Yes Safety Concerns: Feels Safe At This Time caffeine: No Dental Care, Regularly: No Physical Activity Frequency: Does not Exercise Seatbelt Use: never Sunscreen Use: Yes (Protective clothing ) Assistive Devices: Cane Physical Exam Constitutional: + disheveled and cooperative Eyes: PERRL, conjunctivae normal, anicteric sclerae ENMT: Mouth: + dry oral mucous membranes Neck: trachea midline, no thyromegaly Respiratory: normal respiratory effort, lungs clear to auscultation Cardiovascular: Rate/Rhythm: + irregularly irregular Extremities: no edema Gastrointestinal (Abdomen): Inspection/Auscultation: + visible herniation (umbilical) Percussion/Palpation: abdomen soft; abdomen nontender Genitourinary: card present Results & Data Results & Data Vital Signs (Past 12 Hours) Vital Signs Temp Pulse Resp BP Pulse Ox O2 Del Method 03/17/23 21:00 122 H 15 84/59 L 98 Room Air 03/17/23 20:51 118 H 20 100/72 03/17/23 20:46 127 H 26 H 88/59 L 03/17/23 20:15 120 H 28 H 86/67 L 03/17/23 20:10 136 H 20 03/17/23 20:00 132 H 20 03/17/23 19:50 135 H 22 03/17/23 19:42 130 H 22 03/17/23 19:41 118 H 03/17/23 19:16 36.6 C 22 Laboratory Results Laboratory Results WBC 17.03 K/ul (4.8-10.8) H 03/17/23 19:53 RBC 4.52 M/uL (4.70-6.10) L 03/17/23 19:53 Hgb 13.1 g/dl (14.0-18.0) L 03/17/23 19:53 Hct 37.4 % (42.0-52.0) L 03/17/23 19:53 MCV 82.7 fL (80.0-100.0) 03/17/23 19:53 MCH 29.0 pg (25.0-34.0) 03/17/23 19:53 MCHC 35.0 g/dL (32.0-36.0) 03/17/23 19:53 RDW Std Deviation 44.9 fL (36.4-46.3) 03/17/23 19:53 RDW Coeff of Efrain 15.0 % (11.5-14.5) H 03/17/23 19:53 Plt Count 374 K/uL (130-400) 03/17/23 19:53 MPV 10.4 fL (9.4-12.4) 03/17/23 19:53 Immature Gran % (Auto) 0.4 % 03/17/23 19:53 Neut % (Auto) 85.6 % 03/17/23 19:53 Lymph % (Auto) 8.2 % 03/17/23 19:53 Tripp % (Auto) 4.7 % 03/17/23 19:53 Eos % (Auto) 0.8 % 03/17/23 19:53 Baso % (Auto) 0.3 % 03/17/23 19:53 Neut # (Auto) 14.58 K/uL (1.40-6.50) H 03/17/23 19:53 Lymph # (Auto) 1.40 K/uL (1.2-3.4) 03/17/23 19:53 Tripp # (Auto) 0.80 K/uL (0.11-0.59) H 03/17/23 19:53 Eos # (Auto) 0.14 K/uL (0-0.50) 03/17/23 19:53 Baso # (Auto) 0.05 K/uL (0-0.2) 03/17/23 19:53 Immature Gran # (Auto) 0.06 K/uL (0.01-0.20) 03/17/23 19:53 Sodium 138 mmol/L (136-145) 03/17/23 19:53 Potassium 5.2 mmol/L (3.5-5.1) H 03/17/23 19:53 Chloride 101 mmol/L (98-107) 03/17/23 19:53 Carbon Dioxide 13 mmol/L (21-32) L 03/17/23 19:53 Anion Gap 24 (3-11) H 03/17/23 19:53 BUN 287 mg/dl (6-23) H 03/17/23 19:53 Creatinine 9.82 mg/dl (0.6-1.4) H* 03/17/23 19:53 Est Cr Clr Drug Dosing 6.7 ml/min 03/17/23 19:53 Est GFR ( Amer) 5.4 ml/min 03/17/23 19:53 Est GFR (Non-Af Amer) 4.6 ml/min 03/17/23 19:53 BUN/Creatinine Ratio 29.2 (10-20) H 03/17/23 19:53 Glucose 123 mg/dl (70-99(Fasting)) H 03/17/23 19:53 Lactate 2.0 mmol/L (0.4-2.0) 03/17/23 21:12 Calcium 8.5 mg/dl (8.6-10.3) L 03/17/23 19:53 Total Bilirubin 0.7 mg/dl (0.2-1.0) 03/17/23 19:53 AST 7 U/L (13-39) L 03/17/23 19:53 ALT 10 U/L (7-52) 03/17/23 19:53 Alkaline Phosphatase 79 U/L (34-104) 03/17/23 19:53 Total Creatine Kinase 83 U/L (30-223) 03/17/23 19:53 Troponin I High Sens 27.7 pg/ml (0-20) H 03/17/23 19:53 Total Protein 8.5 gm/dl (6.0-8.3) H 03/17/23 19:53 Albumin 3.4 gm/dl (3.4-5.0) 03/17/23 19:53 Globulin 5.1 gm/dl (2.5-4.0) H 03/17/23 19:53 Albumin/Globulin Ratio 0.7 (0.9-2) L 03/17/23 19:53 TSH 4.192 uIu/ml (0.300-4.500) 03/17/23 19:53 Urine Color Yellow 03/17/23 22:05 Urine Appearance Turbid (Clear) A 03/17/23 22:05 Urine pH 5.5 (4.5-7.5) 03/17/23 22:05 Ur Specific [place] 1.014 (1.000-1.030) 03/17/23 22:05 Urine Protein 2+ (Negative) H 03/17/23 22:05 Urine Glucose (UA) Negative (Negative) 03/17/23 22:05 Urine Ketones Negative (Negative) 03/17/23 22:05 Urine Blood 3+ (Negative) H 03/17/23 22:05 Urine Nitrite Negative (Negative) 03/17/23 22:05 Urine Bilirubin Negative (Negative) 03/17/23 22:05 Urine Urobilinogen Negative (Negative) 03/17/23 22:05 Ur Leukocyte Esterase 3+ (Negative) H 03/17/23 22:05 Urine WBC (Auto) >30 /hpf (0-5) H 03/17/23 22:05 Urine RBC (Auto) 0-4 /hpf (0-4) 03/17/23 22:05 U Hyaline Cast (Auto) 0 /lpf (0-5) 03/17/23 22:05 U Epithel Cells (Auto) 10-20 /lpf (0-5) H 03/17/23 22:05 Urine Bacteria (Auto) 2+ (Negative) H 03/17/23 22:05 Nasal Screen MRSA (PCR) Negative (Negative) 03/17/23 20:53 SARS-CoV-2, RNA, NAAT NEGATIVE (NEGATIVE) 03/17/23 19:[address] 03/17/23 19:24 CT cervical spine wo con CT DOSE: 1551.84 mGy.cm CLINICAL HISTORY: 73 years-old Male with fall. Acute head and neck trauma status post fall COMPARISON: Head CT of same day TECHNIQUE: Multiple axial CT images of the cervical spine were obtained without contrast. A dose lowering technique was utilized adhering to the principles of ALARA. FINDINGS: Multilevel degenerative changes. No acute cervical spine fracture or subluxation identified. Chronic appearing deformity involves the posterior arch of C1. The cervical soft tissues appear unremarkable. The visualized lung apices appear clear. IMPRESSION: No acute cervical spine fracture or subluxation. ACT 112: Negative or not required by law. The above report was generated using voice recognition software. It may contain grammatical, syntax or spelling errors. Electronically signed by: Choco Nicholas M.D. 03/17/2023 8:46 PM Chest X-Ray 03/17/23 19:24 XR chest 1V portable HISTORY: 73 years-old Male weakness acute weakness COMPARISON: None TECHNIQUE: AP view of the chest FINDINGS: Nipple shadow projects over the left lung base. Limited exam secondary to positioning. Cardiac silhouette is enlarged. No pneumothorax, pleural effusion, airspace consolidation or pulmonary edema. 6 mm nodular density projects over the left midlung, possibly a calcified granuloma. IMPRESSION: No acute process. ACT 112: Negative or not required by law. The above report was generated using voice recognition software. It may contain grammatical, syntax or spelling errors. Electronically signed by: Choco Nicholas M.D. 03/17/2023 7:[address] 03/17/23 19:24 CT head/brain wo con CLINICAL HISTORY: 73 years-old Male with fall. Acute head trauma status post fall TECHNIQUE: Multiple axial CT images of the head were obtained without contrast. A dose lowering technique was utilized adhering to the principles of ALARA. COMPARISON: CT cervical spine of same day. FINDINGS: No acute intracranial hemorrhage, midline shift, intracranial mass, hydrocephalus, territorial ischemia or abnormal extra-axial collection. Involutional changes with chronic microvascular ischemic disease. The calvarium is intact. Mastoid air cells are clear. Chronic appearing deformity involving the posterior arch of C1. 5.1 x 3.5 cm mixed attenuating polypoid lesion involves the left nasal turbinate, maxillary sinus and posterior nasal aperture. IMPRESSION: 1. No acute intracranial abnormality or calvarial fracture. 2. Polyploid mucosal thickening versus lesion of the left maxillary sinus, adjacent nasal turbinate and posterior nasal aperture measures up to 5.1 cm. Follow-up ENT consultation recommended. ACT 112: Negative or not required by law. The above report was generated using voice recognition software. It may contain grammatical, syntax or spelling errors. Electronically signed by: Choco Nicholas M.D. 03/17/2023 8:49 PM Abdomen/Pelvis CT 03/17/23 21:03 Exam(s): CT ABDOMEN + PELVIS Without Contrast EXAM: CT Abdomen and Pelvis Without Intravenous Contrast CLINICAL HISTORY: r/o obstruction. TECHNIQUE: Axial computed tomography images of the abdomen and pelvis without intravenous contrast. CTDI is 20.25 mGy and DLP is 1170.18 mGy-cm. Automated exposure control was utilized for the study. A dose lowering technique was utilized adhering to the principles of ALARA. COMPARISON: No relevant prior studies available. FINDINGS: Lung bases: Unremarkable. No mass. No consolidation. ABDOMEN: Liver: Unremarkable. Gallbladder and bile ducts: A solitary calcified gallstone is noted in the gallbladder, measuring 13 mm. The gallbladder is fully distended without gallbladder wall thickening or biliary dilatation. Pancreas: Unremarkable. No ductal dilation. Spleen: Unremarkable. No splenomegaly. Adrenals: Unremarkable. No mass. Kidneys and ureters: There is moderate bilateral hydroureteronephrosis with distention of the ureters to the level of the UVJ bilaterally. Stomach and bowel: No definite evidence for focal high-grade bowel obstruction. PELVIS: Appendix: No findings to suggest acute appendicitis. Bladder: Slightly asymmetric bladder wall thickening, more prominent along the posterior and right lateral aspect of the bladder with some lobulation, measuring up to 5 mm in thickness. There is a right lateral bladder diverticulum measuring 2.5 cm. No stones. Reproductive: The prostate gland is abnormal with an ovoid hypodense area along the left lateral aspect of the bladder estimated at 2.5 x 2.5 x 3.1 cm. No prosthetic hypertrophy identified. ABDOMEN and PELVIS: Intraperitoneal space: Unremarkable. No free air. No significant fluid collection. Bones/joints: No acute fracture. No dislocation. Soft tissues: An umbilical ventral wall hernia is noted containing a normal caliber loop of small bowel. No mucosal thickening or inflammatory changes identified. Vasculature: Fusiform ectasia of the infrarenal aorta, measuring up to 3.4 cm in diameter. Mild calcification. No acute abnormality. No abdominal aortic aneurysm. Lymph nodes: Unremarkable. No enlarged lymph nodes. Other findings: Internal static calcifications noted. IMPRESSION: 1. No definite evidence for focal high-grade bowel obstruction. Umbilical hernia contains nondilated small bowel loops without fat stranding or evidence for mucosal thickening. The clinical significance of this finding is indeterminant and this may be incidental. No free intraperitoneal fluid or pneumoperitoneum. 2. There is moderate bilateral hydroureteronephrosis with distention of the ureters to the level of the UVJ bilaterally. Suspect developing urinary retention, either from distal ureteral structure or infiltrating abnormality involving the bladder wall discussed below. 3. Slightly asymmetric bladder wall thickening, more prominent along the posterior and right lateral aspect of the bladder with some lobulation, measuring up to 5 mm in thickness. There is a right lateral bladder diverticulum measuring 2.5 cm. Differential consideration regarding the bladder wall may represent developing hypertrophic changes or subtle infiltrating neoplastic process. 4. The prostate gland is abnormal with an ovoid hypodense area along the left lateral aspect of the bladder estimated at 2.5 x 2.5 x 3.1 cm. No prosthetic hypertrophy identified. Differential consideration includes a prostatic cyst or cystic mass. Electronically signed by: Sha Wie MD 03/17/23 21:55 PM Supervising Physician Co-Signing Physician Notes Attending addendum: I have physically seen this patient, have supervised the medical residents activities, and agree with the H&P unless as otherwise noted. Assessment and Plan: Acute renal failure- Creatinine 9.82 Hold HCTZ and lisinopril Given bicarb, D5W and Zosyn IV in the ED Follow urine culture sensitivity CT with moderate bilateral hydroureteronephrosis with distention of the ureters to the level of the UVJ bilaterally, likely secondary to urinary retention and obstruction of outflow Consulting urology Consulting nephrology Follow urine culture and sensitivities Continue Zosyn 4.5 g IV every 12 hours Tamsulosin 0.4 mg at bedtime Atrial fibrillation with RVR/hypotension- Continue aggressive fluid rehydration Negative inotropes on hold for now Patient will be admitted to ICU to address issues with atrial fibrillation, acute renal failure, hypotension Resident Activity Tracking Resident Involvement: Resident Care Provided Care Provided: Adult [facility]
[2023-03-17 22:30] LABS: Appearance Urine Turbid (Clear); Bacteria Urine Automated 2+ (Negative); Bilirubin Urine Negative (Negative); Blood Urine 3+ (Negative); Cast Urine Automated 0 /lpf (0-5); Color Urine Yellow; Glucose Urine UA Negative (Negative); Ketones Urine Negative (Negative); Leukocyte Esterase Urine 3+ (Negative); Nitrite Urine Negative (Negative); Protein Urine 2+ (Negative); RBC Urine Automated 0-4 /hpf (0-4); Specific Gravity Urine 1.014 (1.000-1.030); Urobilinogen Urine Negative (Negative); WBC Urine Automated >30 /hpf (0-5); pH Urine 5.5 (4.5-7.5)
[2023-03-17 23:57] LABS: Calcium 7.8 mg/dl (8.6-10.3); Potassium 4.9 mmol/L (3.5-5.1)
[2023-03-17 23:58] LABS: Magnesium 2.4 mg/dl (1.7-2.4)
[2023-03-18 00:09] LABS: Troponin I High Sensitivity 25.6 pg/ml (0-20)
[2023-03-18 00:47] LABS: Creatinine Clr Calc Pharmacy 7.2 ml/min; Est GFR (African American) 5.8 ml/min
--- NOTE | 2023-03-18 00:47 | Urology Consultation ---
I have discussed Mr. Moya's case with Dawson Mireles PA-C and agree with the above documentation. He likely has a component of bladder outlet obstruction which is now managed with Link catheter. Would recommend hydration with IV fluids, monitoring renal function. If he does not return to baseline would reassess renal ultrasound in 24-48 hours as there may be some residual upper tract obstruction from a thickened bladder wall. Hypodense area on the prostate may represent evolving infection, could potentially represent prostate abscess. Would start with treatment with broad-spectrum antibiotics and narrow as culture data becomes available. If he is having persistent infectious symptoms, potential transurethral unroofing or transrectal drainage could be attempted. Urology will follow along -Fritz Lofton MD. Date of Consultation March 18, 2023 Assessment & Plan (1) Renal failure: (2) Prostate mass: The patient is being admitted on the hospitalist service. From a urologic perspective we recommend the following: The findings on CT scan and the patient's elevated renal function raise a concern for bladder outlet obstruction. Agree with placement of Link catheter which should remain in place. If Link catheter does become clogged manual irrigation can be employed. Serial laboratories should be followed to ensure patient does not develop hyperkalemia and that his renal function is trending in the normal direction. Hydration measures should be continued. I discussed with the ICU provider. A VBG will be assessed to determine if a bicarb drip is still needed. They will adjust his IVF accordingly. Nephrotoxic medications to be avoided Findings on CT scan of a cystic mass in the prostate raising concern for a potential prostate abscess. Broad-spectrum antibiotic should be utilized and Zosyn has been initiated. A urine culture has been sent and the results this will be followed with antibiotics be tailored based on these results. Would recommend making the patient n.p.o. The patient will be followed while in the hospital. He will be reevaluated in the morning by urology attending to determine if cystoscopy is required due to the findings on CT scan. Additional recommendations to be forthcoming based on his clinical course as unfolds. History of Present Illness Reason for Consultation: Cystic mass and prostate Attending Physician: Erick Gaffney MD History of Present Illness This is a 73-year-old male who presented to the emergency department by EMS. The patient was reportedly found by a friend when they came to check on him. They found that the patient lying on the ground in his own feces. The patient reportedly has not been eating and drinking very well over the past several days and he has been feeling generally unwell. The patient notes that he just feels generally weak with some intermittent nausea. The patient does recollect that he may have fallen several days ago and and feels as though he may have hit his head but was unclear of the details. He denies any cough or shortness of breath. He does not offer any additional complaints at this time. Since arrival to the hospital the patient has had labs and imaging which independent reviewed. Cervical spine CT scan showed no fractures or subluxations. Chest x-ray showed no evidence of pneumonia. There was concern the patient had a 6 mm nodular density in the left midlung which potentially represent a calcified granuloma. A CT scan of the head showed mucosal thicken ing of the left maxillary sinus with the adjacent nasal turbinate and posterior nasal aperture measuring up to 5.[address] scan of the abdomen pelvis showed no evidence of appendicitis. There is no evidence of high-grade bowel obstruction. An umbilical hernia was noted which contained small bowel. There is no free air or pneumoperitoneum. Bilateral hydroureteronephrosis was noted. The ureters were distended to the level of the ureterovesical junction bilaterally. Asymmetric thickening of the bladder wall was noted with a right lateral bladder diverticulum measuring 2.5 cm. The prostate gland was noted to be abnormal with an ovoid hypodense area along the left lateral aspect measuring 2.5 x 2.5 x 3.1 cm, raising the concern for either a prostatic cyst or cystic mass. Labs include a CBC were white blood cell count was elevated at 17.0. Hemoglobin and hematocrit were 13.1 and 37.4. Platelet count was within the normal range. Labs included a chemistry profile where sodium and potassium are 138 and 5.2. The patient's BUN and creatinine were 287 and 9.82. The patient's chemistry profile has been repeated approximately 3 and half hours later and his sodium and potassium are now normal. Repeat BUN and creatinine levels are pending. TSH level was noted to be within the normal range. And his troponin was slightly elevated at 27.7. An EKG showed atrial fibrillation with a heart rate of approximately 130 bpm. There did not appear to be any peaked T waves. A COVID test was noted to be negative. A urinalysis showed turbid urine. It was negative for nitrites but positive for leukocyte Esterase (3+), and had greater than 30 white blood cells per high-power field and 2+ bacteria. Of note, the patient's chart was reviewed and the most recent PSA available for review was from 2016 and was noted to be normal. Due to the findings on the abdominal CT scan along with the patient's elevated BUN and creatinine urology was asked to see the patient. I did asked the juliann chen about urinary symptoms at home and the patient does report that at times he does have some urinary hesitancy but says that the his urine stream is fairly strong. He does report some intermittent dysuria but denies any hematuria. He denies any back or flank pain. He denies any swelling of his lower extremities bilaterally. He currently denies any abdominal pain. He denies any vomiting bu t did report some intermittent nausea. Since arrival to the emergency department the patient has had a Link catheter placed. In the first 2 hours the Link catheter was in place he has drained approximately 800 cc of urine. I did discuss with the nursing staff and he noted the urine appeared to be somewhat concentrated upon initial insertion. He has been started on antibiotics in the form of Zosyn. He has not been started on a bicarbonate drip and has received calcium gluconate. At the time of my interview the patient was resting comfortably in bed and he was in no distress. Allergies Allergy/AdvReac Type Severity Reaction Status Date / Time No Known Allergies Allergy Verified 03/17/23 20:42 Home Medications Medication Instructions Recorded Confirmed Type amlodipine 10 mg tablet 10 mg PO QAM 03/17/23 03/17/23 History hydrochlorothiazide 25 mg tablet 25 mg PO QAM 03/17/23 03/17/23 History lisinopril 20 mg tablet 20 mg PO QAM 03/17/23 03/17/23 History metoprolol succinate 100 mg 100 mg PO QAM 03/17/23 03/17/23 History tablet,extended release 24 hr Patient History Medical History Abnormal blood chemistry Abnormal finding on thyroid function test Atrial fibrillation Hyperglycemia Hyperlipidemia Hypertension Male erectile disorder of organic origin Umbilical hernia Surgical History History of appendectomy History of cataract surgery History of tonsillectomy Family History Father Laryngeal cancer Social History Smoking Status: Former smoker Tobacco Type: Smokeless Tobacco (Dip or Chew) Second Hand Exposure: No; Do You Dip or Chew Tobacco: No; Tobacco Cessation Education Requested by Patient: No Hx Alcohol Use: No Hx Substance Use: No Preferred Language: Dutch Communication Ability: Effective Obstetrics Specialist Required: No Beliefs That Will Affect Care: None marital status: Single Current Living Situation: Alone Other Information That Helps Us Care for You: No Feels Safe at Home: Yes Safety Concerns: Feels Safe At This Time caffeine: No Dental Care, Regularly: No Physical Activity Frequency: Does not Exercise Seatbelt Use: never Sunscreen Use: Yes (Protective clothing ) Assistive Devices: None Review of Systems Constitutional: no fever and no chills Eyes: no eye pain Ear, Nose, Mouth, Throat: no ear pain and no hearing loss Respiratory: no cough and no dyspnea Cardiovascular: no chest pain Gastrointestinal: + nausea; no abdominal pain and no vomiting Genitourinary: + as per Subjective / HPI Musculoskeletal: no back pain Integumentary: no rash Neurologic: + generalized weakness Physical Exam Constitutional: no acute distress Patient appeared somewhat disheveled Eyes: no conjunctival abnormality No periorbital edema ENMT: Ears: no hearing impairment and no external ear abnormality Mouth: no oropharynx abnormality Neck: trachea midline Respiratory: normal respiratory effort; no respiratory distress and no labored breathing Breath sounds are slightly decreased at the bases. There is no use of accessory muscles Cardiovascular: Rate/Rhythm: + irregularly irregular Vessels: dorsalis pedis pulses present and radial pulses present Gastrointestinal (Abdomen): Abdomen is soft, nonrigid, and nondistended. An umbilical hernia is noted with no pain no pain is noted with palpation. The remainder of abdomen is nontender to palpation as well. Musculoskeletal: No calf tenderness, no lower extremity edema. No foot wounds are noted. Skin: no rashes Neurologic: Patient is able to follow simple commands and move all 4 extremities without noted focal deficits Genitourinary: no CVA tenderness A Link catheter is in place draining cloudy yellow urine. There is some sediment in the Link collection tubing but the Link catheter did appear patent. Results & Data Vital Signs (Past 12 Hours) Vital Signs Temp Pulse Pulse Resp BP BP Pulse Ox 03/17/23 23:31 135 H 25 H 104/61 95 03/17/23 23:00 123 H 17 115/64 96 03/17/23 22:33 139 H 24 109/64 92 03/17/23 22:10 131 H 13 100 03/17/23 21:40 130 H 24 95 03/17/23 22:35 126 H 16 109/64 99 03/17/23 21:00 122 H 15 84/59 L 98 03/17/23 20:51 118 H 20 100/72 03/17/23 20:46 127 H 26 H 88/59 L 03/17/23 20:15 120 H 28 H 86/67 L 03/17/23 20:10 136 H 20 03/17/23 20:00 132 H 20 03/17/23 19:50 135 H 22 03/17/23 19:42 130 H 22 03/17/23 19:41 118 H 03/17/23 19:16 36.6 C 22 O2 Del Method 03/17/23 23:31 Room Air 03/17/23 23:00 Room Air 03/17/23 22:33 Room Air 03/17/23 22:10 Room Air 03/17/23 21:40 Room Air 03/17/23 22:35 Room Air 03/17/23 21:00 Room Air 03/17/23 20:51 03/17/23 20:46 03/17/23 20:15 03/17/23 20:10 03/17/23 20:00 03/17/23 19:50 03/17/23 19:42 03/17/23 19:41 03/17/23 19:16 PG Care Time/CCT Total # of Minutes Spent Total Time Spent with Patient: Total time spent is greater than 50% in coordination of care (as documented) at patient's floor/unit and/or counseling patient: Coding Level of Care Code 09717 INT INP/OBS CARE 3/75MIN Diagnoses Renal failure N19 Prostate mass N42.89
[2023-03-18 01:30] LABS: Base Excess VBG -5.5 mEq/L; HCO3 VBG 18 mmol/L; Oxygen Saturation VBG < 60.0 %; PCO2 VBG 29 mmHg (38-50); PO2 VBG 17 mmHg
--- NOTE | 2023-03-18 01:32 | Critical Care Consultation ---
Date of Consultation March 18, 2023 Assessment & Plan (1) Hypotension: Reason Critically Ill: 73-year-old male presents to the ICU with hypotension and acute renal failure. Currently on phenylephrine drip, bicarb drip and started on amiodarone drip for A-fib RVR. Neuro - [facility] ICU: Negative Fallno acutel findings on CT head or CT for cervical spine. Cardiac - Hypotensionpatient presents to the ICU with hypotension requiring phenylephrine drip in the setting of acute renal failure and A-fib RVR. Cannot rule out sepsis at this time as patient does appear to have UTI. - Continue with phenylephrine drip to maintain maps greater than 65 - Hold antihypertensives - Random cortisol pending -TTE pending - Continue with IV fluid resuscitation - Troponin downtrending - Continuous monitoring on telemetry A-fib RVRpatient with history of A-fib but not anticoagulated. Holding metoprolol for hypotension and currently on phenylephrine drip. Starting on amiodarone drip for rate control due to hemodynamics. Goal of rate control at this time. Echo pending. Continuous monitoring on telemetry Respiratory - Currently maintaining oxygen saturation on room air. No history of pulmonary disease. Monitor on pulse ox GI - Renal diet RENAL/LYTES - Acute renal failurelikely mixed etiology as the patient has obstructed output with bilateral nephrosis likely due to prostate lesion?. Patient also on lisinopril and hydrochlorothiazide and decreased p.o. intake. - Currently on bicarb drip for metabolic acidosis. Trend VBG's - Hyperkalemia with potassium of 5.2, repeat now 4.8. - Nephrology consulted. We will follow recommendations - Avoid nephrotoxins and renally adjust medications - Trend BMPs every 4 hours - CT abdomen and pelvis with moderate bilateral hydro ureteral nephrosis with extension of the ureter dose to the level of the UVJ bilaterally. Asymmetric bladder wall thickening with differential consider raising development of hypertrophic changes or subtle infiltrating neoplastic process. Prostate gland abnormal with ovoid hypodense area with differential consideration including a prostatic cyst or cystic mass. - Urology consulted, appreciate recommendations - Indwelling Link catheter, Strict I's and O's ENDO - No history of diabetes or thyroid disease. ICU hyperglycemic protocol HEME - H&H stable, monitor routine CBC ID - Sepsis? Possible urinary source with +2 bacteria on UA and possible cystitis on CT abdomen and pelvis. WBC 17,000, afebrile, procalcitonin pending. Urine culture pending and blood cultures ordered. Continue Zosyn LINES/IV ACCESS - Peripheral IVs. We will hold off on central line for the time being as patient is currently on low-dose levo phenylephrine. May consider central line if patient requires higher dose vasopressor support, however considering patient may need dialysis catheter as well If renal function does not improve DVT PROPHYLAXIS - SCDs, Subcu heparin I have personally spent 55 minutes of critical care time in the direct management of this patient. This is a life/limb threatening event. This includes time spent evaluating patient, direct bedside care, chart review, placing orders, interpretation of diagnostic studies, discussion with consultants, patient, and family members, as well as other required patient management activities. This time is exclusive of all separately billable procedures, and teaching time and separate from and in addition to any other critical care service time. Thank you for allowing us to participate in the care of this patient. Please refer to my attending physician's documentation for any further recommendations. (2) Prostate mass: (3) Renal failure: (4) Atrial fibrillation: (5) Hyperlipidemia: (6) Hypertension: (7) UTI (urinary tract infection): History of Present Illness Attending Physician: Erick Gaffney MD History of Present Illness Patient is a 73-year-old male with a past medical history of hypertension, hyperlipidemia, atrial fibrillation who presented to the emergency department earlier this evening after being found by his friend laying in his own feces at home. Patient had not been eating or drinking or taking his medications and had felt sick for the past 3 to 4 weeks. Patient complained of dizziness and lethargy and reported falling and hitting his head on Wednesday. In the emergency department patient was found to be in renal failure and A-fib RVR And hypotensive. Creatinine was elevated at 9 and potassium 5.2, with BUN of 287. CT abdomen and pelvis Concerning for bladder outlet obstruction and bilateral hydronephrosis, asymmetric bladder wall thickening, and potential prostate abscess. Urology and nephrology consulted and patient now being admitted to ICU for further management at this time. On arrival to the ICU the patient is lethargic but alert and oriented. On exam he appears to be a poor historian but was able to tell me that he had not felt well for the past week and was told in the emergency department there was something wrong with his kidneys. Patient states that he has also had spells of dizziness when standing for the past few days. He denies any headache, recent illness or fevers, chest pain, palpitations, shortness of breath, cough, abdominal pain, nausea vomiting or diarrhea, swelling in hands or feet, changes in urinary frequency or feeling the urge to urinate without being able to void. Patient continues to have irregular tachycardia in the 120s and is mildly hypotensive. Starting on phenylephrine drip and will try low-dose metoprolol but may switch to amiodarone if patient becomes more hypotensive. Allergies Allergy/AdvReac Type Severity Reaction Status Date / Time No Known Allergies Allergy Verified 03/17/23 20:42 Home Medications Medication Instructions Recorded Confirmed Type amlodipine 10 mg tablet 10 mg PO QAM 03/17/23 03/17/23 History hydrochlorothiazide 25 mg tablet 25 mg PO QAM 03/17/23 03/17/23 History lisinopril 20 mg tablet 20 mg PO QAM 03/17/23 03/17/23 History metoprolol succinate 100 mg 100 mg PO QAM 03/17/23 03/17/23 History tablet,extended release 24 hr Patient History Medical History Abnormal blood chemistry Abnormal finding on thyroid function test Atrial fibrillation Hyperglycemia Hyperlipidemia Hypertension Male erectile disorder of organic origin Umbilical hernia Surgical History History of appendectomy History of cataract surgery History of tonsillectomy Family History Father Laryngeal cancer Social History Smoking Status: Former smoker Tobacco Type: Smokeless Tobacco (Dip or Chew) Second Hand Exposure: No; Do You Dip or Chew Tobacco: No; Tobacco Cessation Education Requested by Patient: No Hx Alcohol Use: No Hx Substance Use: No Preferred Language: Bulgarian Communication Ability: Effective Psychiatric Specialist Required: No Beliefs That Will Affect Care: None marital status: Single Current Living Situation: Alone Other Information That Helps Us Care for You: No Feels Safe at Home: Yes Safety Concerns: Feels Safe At This Time caffeine: No Dental Care, Regularly: No Physical Activity Frequency: Does not Exercise Seatbelt Use: never Sunscreen Use: Yes (Protective clothing ) Assistive Devices: None Review of Systems Review of Systems: All systems reviewed & are unremarkable except as noted in HPI & below Physical Exam Constitutional: cooperative and + lethargic; no acute distress Eyes: PERRL, conjunctivae normal, anicteric sclerae ENMT: external ear and nose normal, oropharynx normal Neck: trachea midline, no thyromegaly Respiratory: normal respiratory effort, lungs clear to auscultation Cardiovascular: Rate/Rhythm: + tachycardic and + irregularly irregular Heart Sounds: + murmur Extremities: + pedal edema Gastrointestinal (Abdomen): normal bowel sounds, soft, nontender, no hepatosplenomegaly Musculoskeletal: no cyanosis or clubbing, extremities motor strength 5/5 Skin: no rashes, warm and dry Neurologic: PERRL, EOMI, accommodation nl, no face palsy, no dysarthria Psychiatric: A+Ox3, euthymic affect Genitourinary: Indwelling Link catheter present Results & Data Results & Data Vital Signs (Past 12 Hours) Vital Signs Temp Pulse Pulse Resp BP BP Pulse Ox 03/18/23 00:46 36.6 C 135 H 19 101/75 95 03/17/23 23:31 135 H 25 H 104/61 95 03/17/23 23:00 123 H 17 115/64 96 03/17/23 22:33 139 H 24 109/64 92 03/17/23 22:10 131 H 13 100 03/17/23 21:40 130 H 24 95 03/17/23 22:35 126 H 16 109/64 99 03/17/23 21:00 122 H 15 84/59 L 98 03/17/23 20:51 118 H 20 100/72 03/17/23 20:46 127 H 26 H 88/59 L 03/17/23 20:15 120 H 28 H 86/67 L 03/17/23 20:10 136 H 20 03/17/23 20:00 132 H 20 03/17/23 19:50 135 H 22 03/17/23 19:42 130 H 22 03/17/23 19:41 118 H 03/17/23 19:16 36.6 C 22 O2 Del Method 03/18/23 00:46 Room Air 03/17/23 23:31 Room Air 03/17/23 23:00 Room Air 03/17/23 22:33 Room Air 03/17/23 22:10 Room Air 03/17/23 21:40 Room Air 03/17/23 22:35 Room Air 03/17/23 21:00 Room Air 03/17/23 20:51 03/17/23 20:46 03/17/23 20:15 03/17/23 20:10 03/17/23 20:00 03/17/23 19:50 03/17/23 19:42 03/17/23 19:41 03/17/23 19:16 Coding Level of Care Code 22266 CRITICAL CARE 1ST 30-74M Diagnoses Hypotension I95.9 Prostate mass N42.89 Renal failure N19 Atrial fibrillation I48.91 Hyperlipidemia E78.5 Hypertension I10 UTI (urinary tract infection) N39.0
[2023-03-18] MEDS ORDERED: SODIUM BICARBONATE 8.4% 100 MEQ in DEXTROSE 5% 1,000 ML IV SCH (02:00)
[2023-03-18 02:02] LABS: INR 1.2 (0.9-1.1); Partial Thromboplastin Time 26.8 Seconds (21.0-31.0); Prothrombin Time 12.9 Seconds (9.0-12.0)
[2023-03-18] MEDS: METOPROLOL TARTRATE 1 MG/ML VIAL IV SCH ×2 (02:13→03:26)
[2023-03-18] MEDS ORDERED: STAT IV Infusion **Titration per Protocol STA (02:18)
[2023-03-18] MEDS: PHENYLEPHRINE/NSS 25 MG/250 ML BAG IV SCH ×3 (02:27→21:59)
[2023-03-18] MEDS ORDERED: 0.2 MICRON FILTER SET 1 EACH IV ONE (02:46)
[2023-03-18] MEDS ORDERED: AMIODARONE / D5W 360 MG/200 ML BAG IV ONE (02:46)
[2023-03-18] MEDS ORDERED: GLUCOSE 40% GEL 15 GM TUBE PO PRN (03:28)
[2023-03-18] MEDS ORDERED: DEXTROSE 50% 50 ML SYRINGE IV PRN (03:28)
[2023-03-18] MEDS ORDERED: GLUCAGON FOR INJ 1 MG VIAL SQ PRN (03:28)
[2023-03-18] MEDS ORDERED: GLUCOSE 10 TAB/TUBE PO PRN (03:28)
[2023-03-18] MEDS ORDERED: CARBOHYDRATES FOR HYPOGLYCEMIA PO PRN (03:28)
[2023-03-18 05:10] LABS: Base Excess VBG -4.3 mEq/L; HCO3 VBG 18 mmol/L; Oxygen Saturation VBG < 60.0 %; PCO2 VBG 26 mmHg (38-50); PO2 VBG 28 mmHg; pH VBG 7.45 (7.36-7.41)
[2023-03-18 05:31] LABS: Calcium 7.4 mg/dl (8.6-10.3); Potassium 4.2 mmol/L (3.5-5.1)
[2023-03-18 05:32] LABS: Magnesium 2.3 mg/dl (1.7-2.4)
[2023-03-18 05:38] LABS: Chol HDL Ratio 3.6 (0-5); Phosphorus 9.4 mg/dl (2.5-4.9)
[2023-03-18 05:41] LABS: Creatinine Clr Calc Pharmacy 7.7 ml/min; Est GFR (African American) 6.4 ml/min; Est GFR (Non-African American) 5.5 ml/min
[2023-03-18] MEDS ORDERED: LACTATED RINGER'S 1,000 ML IV SCH ×2 (05:45→12:30)
[2023-03-18] MEDS ORDERED: SODIUM CHLORIDE 0.9% 1000ML 1,000 ML IV SCH (05:45)
[2023-03-18 06:00] LABS: BUN Creatinine Ratio 30.3 (10-20)
[2023-03-18] MEDS ORDERED: PIPERACILLIN/TAZOBACTAM 4.5 GM in DEXTROSE 5% 100 ML IV SCH (06:00)
[2023-03-18] MEDS ORDERED: LACTATED RINGER'S 500 ML IV ONE (06:27)
--- NOTE | 2023-03-18 06:59 | Hospitalist Progress Note ---
Date of Service March 18, 2023 Assessment & Plan (1) Renal failure: Plan: 73yo Male with PMH afib HTN and HLD here for fall illness found to have renal failure. Shock2/2 Renal failure 2/2 hydronephrosis 2/2 prostatic obstruction -creat 9.82 new, BUN 287, K 5.2 on admission -lactate 2 -WBC 17.03, anion gap 24 -difficult Link, placed with purulent urine -Ucx pending -In ED received calcium gluconate, NSS 2L, zosyn, sodium bicarb -CT A/P: There is moderate bilateral hydroureteronephrosis with distention of the ureters to the level of the UVJ bilaterally. Suspect developing urinary retention, either from distal ureteral structure or infiltrating abnormality involving the bladder wall discussed below. Slightly asymmetric bladder wall thickening, more prominent along the posterior and right lateral aspect of the bladder with some lobulation, measuring up to 5 mm in thickness. There is a right lateral bladder diverticulum measuring 2.5 cm. The prostate gland is abnormal with an ovoid hypodense area along the left lateral aspect of the bladder estimated at 2.5 x 2.5 x 3.1 cm. No prosthetic hypertrophy identified. -Leukocytosis already improved to 10, from 17. * Empiric Zosyn; blood, urine cultures pending. Otherwise management per ICU. * IV LR @ 125 mL/hr * Continue tamsulosin * Trend labs Prostatic Mass -CT A/P: ovoid hypodense area along the left lateral aspect of the bladder estimated at 2.5 x 2.5 x 3.1 cm. * Tamsulosin as above. * Urology consult. Appreciate recs. Elevated troponin -27.7 on admission, plateaued at 25. -likely 2/2 to above, atrial fibrillation. -Consider resolved. Atrial fibrillation -Discovered on admission. Likely 2/2 acute renal failure -metoprolol on hold given hypotension. Received amiodarone x1 bag. * Continue to hold home metoprolol. * Trend vitals HTN -Chronic; controlled on metoprolol, lisinopril, HCTZ -Home medications on hold given hypotension 84/59. * Continue to hold home meds, per ICU. Hypertriglyceridemia -Newly discovered on admission. Last triglyceride level obtained in 2019 of 128. Occurring in the setting of total cholesterol of 109. -Not on any statin. * Recommend lifestyle changes instead of pharmacologic management. FENa: renal diet Code Status: Full, POA daughter Marlon DVT PPX: heparin PT/OT: ordered Case Management: consulted Dispo: ICU (2) Atrial fibrillation: (3) Hyperlipidemia: (4) Hypertension: Admission and Anticipated Discharge Date Admission Date: March 17, 2023 Supervising Physician Co-Signing Physician Notes I personally examined the patient and verified all narayan points of history and exam, discussed case, and agree with decision making with Dr Mireles No acute complaints. ICU and urology input greatly appreciated. Vitals noted, in general he is awake and pleasant very fatigued no distress. Breathing unlabored no accessory muscle use good effort. Skin shows no rashes no pallor or icterus. Shock, renal failure, prostate massongoing med management, ICU support, urology management. Otherwise as above. Subjective Patient is awake in bed on arrival this morning. He is AAOx4. He has no acute complaints at this time. Review of Systems Review of Systems: All systems reviewed & are unremarkable except as noted in HPI & below Physical Exam Physical Exam: General: No acute distress HEENT: PERRLA. Normal conjunctiva, anicteric sclera. Oropharynx normal. Respiratory: Normal respiratory effort, CTABL. Cardiovascular: RRR without murmurs, gallops, or rubs. No edema. GI: Soft abdomen with normal bowel sounds heard on auscultation. Nontender x4 quadrants Neuro: Alert and oriented x3. Results & Data Results & Data Vital Signs (Past 12 Hours) Vital Signs Temp Pulse Pulse Resp BP BP Pulse Ox 03/18/23 06:00 118 H 18 91/66 L 98 03/18/23 05:36 101 H 21 96/61 L 99 03/18/23 05:00 113 H 22 90/57 L 98 03/18/23 04:30 110 H 20 102/65 98 03/18/23 04:00 105 H 17 90/63 L 99 03/18/23 03:30 36.6 C 119 H 20 97/55 L 99 03/18/23 03:15 122 H 23 120/67 100 03/18/23 03:00 138 H 22 91/62 L 99 03/18/23 02:45 124 H 20 79/63 L 100 03/18/23 02:30 82/55 L 03/18/23 02:30 132 H 22 97 03/18/23 02:09 132 H 20 87/53 L 99 03/18/23 02:03 123 H 20 75/49 L 98 03/18/23 02:02 134 H 23 80/36 L 99 03/18/23 02:00 126 H 23 65/47 L 97 03/18/23 01:30 119 H 19 114/72 97 03/18/23 01:00 134 H 24 97/47 L 96 03/18/23 00:52 122 H 21 97/60 L 96 03/18/23 00:00 137 H 23 79/52 L 100 03/18/23 01:00 124 H 03/18/23 00:46 36.6 C 135 H 19 101/75 95 03/17/23 23:31 135 H 25 H 104/61 95 03/17/23 23:00 123 H 17 115/64 96 03/17/23 22:33 139 H 24 109/64 92 03/17/23 22:10 131 H 13 100 03/17/23 21:40 130 H 24 95 03/17/23 22:35 126 H 16 109/64 99 03/17/23 21:00 122 H 15 84/59 L 98 03/17/23 20:51 118 H 20 100/72 03/17/23 20:46 127 H 26 H 88/59 L 03/17/23 20:15 120 H 28 H 86/67 L 03/17/23 20:10 136 H 20 03/17/23 20:00 132 H 20 03/17/23 19:50 135 H 22 03/17/23 19:42 130 H 22 03/17/23 19:41 118 H 03/17/23 19:16 36.6 C 22 O2 Del Method 03/18/23 06:00 Room Air 03/18/23 05:36 03/18/23 05:00 Room Air 03/18/23 04:30 Room Air 03/18/23 04:00 03/18/23 03:30 Room Air 03/18/23 03:15 Room Air 03/18/23 03:00 03/18/23 02:45 Room Air 03/18/23 02:30 03/18/23 02:30 03/18/23 02:09 03/18/23 02:03 03/18/23 02:02 03/18/23 02:00 03/18/23 01:30 Room Air 03/18/23 01:00 03/18/23 00:52 Room Air 03/18/23 00:00 03/18/23 01:00 03/18/23 00:46 Room Air 03/17/23 23:31 Room Air 03/17/23 23:00 Room Air 03/17/23 22:33 Room Air 03/17/23 22:10 Room Air 03/17/23 21:40 Room Air 03/17/23 22:35 Room Air 03/17/23 21:00 Room Air 03/17/23 20:51 03/17/23 20:46 03/17/23 20:15 03/17/23 20:10 03/17/23 20:00 03/17/23 19:50 03/17/23 19:42 03/17/23 19:41 03/17/23 19:16 Diagnostic Findings Laboratory Results WBC 10.03 K/ul (4.8-10.8) 03/18/23 04:44 RBC 4.58 M/uL (4.70-6.10) L 03/18/23 04:44 Hgb 13.3 g/dl (14.0-18.0) L 03/18/23 04:44 Hct 37.8 % (42.0-52.0) L 03/18/23 04:44 MCV 82.5 fL (80.0-100.0) 03/18/23 04:44 MCH 29.0 pg (25.0-34.0) 03/18/23 04:44 MCHC 35.2 g/dL (32.0-36.0) 03/18/23 04:44 RDW Std Deviation 44.4 fL (36.4-46.3) 03/18/23 04:44 RDW Coeff of Efrain 15.0 % (11.5-14.5) H 03/18/23 04:44 Plt Count 266 K/uL (130-400) 03/18/23 04:44 MPV 10.8 fL (9.4-12.4) 03/18/23 04:44 Immature Gran % (Auto) 0.3 % 03/18/23 04:44 Neut % (Auto) 86.3 % 03/18/23 04:44 Lymph % (Auto) 7.3 % 03/18/23 04:44 [place] % (Auto) 4.6 % 03/18/23 04:44 Eos % (Auto) 1.2 % 03/18/23 04:44 Baso % (Auto) 0.3 % 03/18/23 04:44 Neut # (Auto) 8.66 K/uL (1.40-6.50) H 03/18/23 04:44 Lymph # (Auto) 0.73 K/uL (1.2-3.4) L 03/18/23 04:44 [place] # (Auto) 0.46 K/uL (0.11-0.59) 03/18/23 04:44 Eos # (Auto) 0.12 K/uL (0-0.50) 03/18/23 04:44 Baso # (Auto) 0.03 K/uL (0-0.2) 03/18/23 04:44 Immature Gran # (Auto) 0.03 K/uL (0.01-0.20) 03/18/23 04:44 PT 12.9 Seconds (9.0-12.0) H 03/18/23 01:20 INR 1.2 (0.9-1.1) H 03/18/23 01:20 APTT 26.8 Seconds (21.0-31.0) 03/18/23 01:20 PTT Ratio 1.0 03/18/23 01:20 VBG pH 7.48 (7.36-7.41) H 03/18/23 09:57 VBG pCO2 25 mmHg (38-50) L 03/18/23 09:57 VBG pO2 48 mmHg 03/18/23 09:57 VBG HCO3 19 mmol/L 03/18/23 09:57 VBG O2 Saturation 85.8 % 03/18/23 09:57 VBG Base Excess -3.9 mEq/L 03/18/23 09:57 Sodium 139 mmol/L (136-145) 03/18/23 04:59 Potassium 4.2 mmol/L (3.5-5.1) 03/18/23 04:59 Chloride 104 mmol/L (98-107) 03/18/23 04:59 Carbon Dioxide 18 mmol/L (21-32) L 03/18/23 04:59 Anion Gap 17 (3-11) H 03/18/23 04:59 BUN 259 mg/dl (6-23) H 03/18/23 04:59 Creatinine 8.54 mg/dl (0.6-1.4) H* D 03/18/23 04:59 Est Cr Clr Drug Dosing 7.7 ml/min 03/18/23 04:59 Est GFR ( Amer) 6.4 ml/min 03/18/23 04:59 Est GFR (Non-Af Amer) 5.5 ml/min 03/18/23 04:59 BUN/Creatinine Ratio 30.3 (10-20) H 03/18/23 04:59 Glucose 180 mg/dl (70-99(Fasting)) H 03/18/23 04:59 POC Glucose 131 mg/dl (70-99) H 03/18/23 07:20 Estimat Average Glucose 143 mg/dl 03/18/23 04:59 Hemoglobin A1c 6.6 % (4.5-5.6) H 03/18/23 04:59 Lactate 2.0 mmol/L (0.4-2.0) 03/17/23 21:12 Calcium 7.4 mg/dl (8.6-10.3) L 03/18/23 04:59 Phosphorus 9.4 mg/dl (2.5-4.9) H 03/18/23 04:59 Magnesium 2.3 mg/dl (1.7-2.4) 03/18/23 04:59 Total Bilirubin 0.7 mg/dl (0.2-1.0) 03/17/23 19:53 AST 7 U/L (13-39) L 03/17/23 19:53 ALT 10 U/L (7-52) 03/17/23 19:53 Alkaline Phosphatase 79 U/L (34-104) 03/17/23 19:53 Total Creatine Kinase 83 U/L (30-223) 03/17/23 19:53 Troponin I High Sens 25.6 pg/ml (0-20) H 03/17/23 23:34 Total Protein 8.5 gm/dl (6.0-8.3) H 03/17/23 19:53 Albumin 3.4 gm/dl (3.4-5.0) 03/17/23 19:53 Globulin 5.1 gm/dl (2.5-4.0) H 03/17/23 19:53 Albumin/Globulin Ratio 0.7 (0.9-2) L 03/17/23 19:53 Triglycerides 155 mg/dl (0-150) H 03/18/23 04:59 Cholesterol 109 mg/dl (0-200) 03/18/23 04:59 LDL Cholesterol, Calc 48 mg/dl 03/18/23 04:59 VLDL Cholesterol, Calc 31 mg/dl (0-30) H 03/18/23 04:59 HDL Cholesterol 30 mg/dl 03/18/23 04:59 Cholesterol/HDL Ratio 3.6 (0-5) 03/18/23 04:59 Procalcitonin 0.77 ng/ml (0-0.5) H 03/18/23 04:59 TSH 4.192 uIu/ml (0.300-4.500) 03/17/23 19:53 Random Cortisol 23.55 mcg/dl 03/18/23 04:59 Urine Color Yellow 03/17/23 22:05 Urine Appearance Turbid (Clear) A 03/17/23 22:05 Urine pH 5.5 (4.5-7.5) 03/17/23 22:05 Ur Specific [place] 1.014 (1.000-1.030) 03/17/23 22:05 Urine Protein 2+ (Negative) H 03/17/23 22:05 Urine Glucose (UA) Negative (Negative) 03/17/23 22:05 Urine Ketones Negative (Negative) 03/17/23 22:05 Urine Blood 3+ (Negative) H 03/17/23 22:05 Urine Nitrite Negative (Negative) 03/17/23 22:05 Urine Bilirubin Negative (Negative) 03/17/23 22:05 Urine Urobilinogen Negative (Negative) 03/17/23 22:05 Ur Leukocyte Esterase 3+ (Negative) H 03/17/23 22:05 Urine WBC (Auto) >30 /hpf (0-5) H 03/17/23 22:05 Urine RBC (Auto) 0-4 /hpf (0-4) 03/17/23 22:05 U Hyaline Cast (Auto) 0 /lpf (0-5) 03/17/23 22:05 U Epithel Cells (Auto) 10-20 /lpf (0-5) H 03/17/23 22:05 Urine Bacteria (Auto) 2+ (Negative) H 03/17/23 22:05 Nasal Screen MRSA (PCR) Cancelled 03/18/23 00:30 SARS-CoV-2, RNA, NAAT NEGATIVE (NEGATIVE) 03/17/23 19:[address] 03/17/23 19:24 CT cervical spine wo con CT DOSE: 1551.84 mGy.cm CLINICAL HISTORY: 73 years-old Male with fall. Acute head and neck trauma status post fall COMPARISON: Head CT of same day TECHNIQUE: Multiple axial CT images of the cervical spine were obtained without contrast. A dose lowering technique was utilized adhering to the principles of ALARA. FINDINGS: Multilevel degenerative changes. No acute cervical spine fracture or subluxation identified. Chronic appearing deformity involves the posterior arch of C1. The cervical soft tissues appear unremarkable. The visualized lung apices appear clear. IMPRESSION: No acute cervical spine fracture or subluxation. ACT 112: Negative or not required by law. The above report was generated using voice recognition software. It may contain grammatical, syntax or spelling errors. Electronically signed by: Choco Nicholas M.D. 03/17/2023 8:46 PM Chest X-Ray 03/17/23 19:24 XR chest 1V portable HISTORY: 73 years-old Male weakness acute weakness COMPARISON: None TECHNIQUE: AP view of the chest FINDINGS: Nipple shadow projects over the left lung base. Limited exam secondary to positioning. Cardiac silhouette is enlarged. No pneumothorax, pleural effusion, airspace consolidation or pulmonary edema. 6 mm nodular density projects over the left midlung, possibly a calcified granuloma. IMPRESSION: No acute process. ACT 112: Negative or not required by law. The above report was generated using voice recognition software. It may contain grammatical, syntax or spelling errors. Electronically signed by: Choco Nicholas M.D. 03/17/2023 7:[address] 03/17/23 19:24 CT head/brain wo con CLINICAL HISTORY: 73 years-old Male with fall. Acute head trauma status post fall TECHNIQUE: Multiple axial CT images of the head were obtained without contrast. A dose lowering technique was utilized adhering to the principles of ALARA. COMPARISON: CT cervical spine of same day. FINDINGS: No acute intracranial hemorrhage, midline shift, intracranial mass, hydrocephalus, territorial ischemia or abnormal extra-axial collection. Involutional changes with chronic microvascular ischemic disease. The calvarium is intact. Mastoid air cells are clear. Chronic appearing deformity involving the posterior arch of C1. 5.1 x 3.5 cm mixed attenuating polypoid lesion involves the left nasal turbinate, maxillary sinus and posterior nasal aperture. IMPRESSION: 1. No acute intracranial abnormality or calvarial fracture. 2. Polyploid mucosal thickening versus lesion of the left maxillary sinus, adjacent nasal turbinate and posterior nasal aperture measures up to 5.1 cm. Follow-up ENT consultation recommended. ACT 112: Negative or not required by law. The above report was generated using voice recognition software. It may contain grammatical, syntax or spelling errors. Electronically signed by: Choco Nicholas M.D. 03/17/2023 8:49 PM Abdomen/Pelvis CT 03/17/23 21:03 Exam(s): CT ABDOMEN + PELVIS Without Contrast EXAM: CT Abdomen and Pelvis Without Intravenous Contrast CLINICAL HISTORY: r/o obstruction. TECHNIQUE: Axial computed tomography images of the abdomen and pelvis without intravenous contrast. CTDI is 20.25 mGy and DLP is 1170.18 mGy-cm. Automated exposure control was utilized for the study. A dose lowering technique was utilized adhering to the principles of ALARA. COMPARISON: No relevant prior studies available. FINDINGS: Lung bases: Unremarkable. No mass. No consolidation. ABDOMEN: Liver: Unremarkable. Gallbladder and bile ducts: A solitary calcified gallstone is noted in the gallbladder, measuring 13 mm. The gallbladder is fully distended without gallbladder wall thickening or biliary dilatation. Pancreas: Unremarkable. No ductal dilation. Spleen: Unremarkable. No splenomegaly. Adrenals: Unremarkable. No mass. Kidneys and ureters: There is moderate bilateral hydroureteronephrosis with distention of the ureters to the level of the UVJ bilaterally. Stomach and bowel: No definite evidence for focal high-grade bowel obstruction. PELVIS: Appendix: No findings to suggest acute appendicitis. Bladder: Slightly asymmetric bladder wall thickening, more prominent along the posterior and right lateral aspect of the bladder with some lobulation, measuring up to 5 mm in thickness. There is a right lateral bladder diverticulum measuring 2.5 cm. No stones. Reproductive: The prostate gland is abnormal with an ovoid hypodense area along the left lateral aspect of the bladder estimated at 2.5 x 2.5 x 3.1 cm. No prosthetic hypertrophy identified. ABDOMEN and PELVIS: Intraperitoneal space: Unremarkable. No free air. No significant fluid collection. Bones/joints: No acute fracture. No dislocation. Soft tissues: An umbilical ventral wall hernia is noted containing a normal caliber loop of small bowel. No mucosal thickening or inflammatory changes identified. Vasculature: Fusiform ectasia of the infrarenal aorta, measuring up to 3.4 cm in diameter. Mild calcification. No acute abnormality. No abdominal aortic aneurysm. Lymph nodes: Unremarkable. No enlarged lymph nodes. Other findings: Internal static calcifications noted. IMPRESSION: 1. No definite evidence for focal high-grade bowel obstruction. Umbilical hernia contains nondilated small bowel loops without fat stranding or evidence for mucosal thickening. The clinical significance of this finding is indeterminant and this may be incidental. No free intraperitoneal fluid or pneumoperitoneum. 2. There is moderate bilateral hydroureteronephrosis with distention of the ureters to the level of the UVJ bilaterally. Suspect developing urinary retention, either from distal ureteral structure or infiltrating abnormality involving the bladder wall discussed below. 3. Slightly asymmetric bladder wall thickening, more prominent along the posterior and right lateral aspect of the bladder with some lobulation, measuring up to 5 mm in thickness. There is a right lateral bladder diverticulum measuring 2.5 cm. Differential consideration regarding the bladder wall may represent developing hypertrophic changes or subtle infiltrating neoplastic process. 4. The prostate gland is abnormal with an ovoid hypodense area along the left lateral aspect of the bladder estimated at 2.5 x 2.5 x 3.1 cm. No prosthetic hypertrophy identified. Differential consideration includes a prostatic cyst or cystic mass. Electronically signed by: Sha Wei MD 03/17/23 21:55 PM Resident Activity Tracking Resident Involvement: Resident Care Provided Care Provided: [facility]
[2023-03-18] MEDS ORDERED: ICU Protocol for HYPERglycemia SCH (07:30)
[2023-03-18] MEDS: INSULIN ASPART PER UNIT CHARGE SC SCH ×4 (08:00→20:07)
[2023-03-18] MEDS: HEPARIN SOD 5,000 UNIT/0.5 ML VIAL SQ SCH ×2 (08:00→20:08)
[2023-03-18 08:20] LABS: Estimated Average Glucose 143 mg/dl; Hemoglobin A1C 6.6 % (4.5-5.6)
--- NOTE | 2023-03-18 09:42 | Urology Progress Note ---
Date of Service March 18, 2023 Assessment & Plan (1) Renal failure: (2) Prostate mass: (3) UTI (urinary tract infection): Plan: 73 yo M critically ill patient admitted for hypotension and acute renal failure, suspected UTI. CT a/p on arrival showed bilateral hydronephrosis, asymmetric bladder wall thickening, and potential prostate mass vs abscess. - Patient afebrile, hypotensive. - Remains on phenylephrine drip, amiodarone drip for A-fib RVR. - Labs reviewed - creatinine 8.54, WBC 10.03, Hgb 13.3. - Continue IV hydration and monitoring renal function; nephrology consulted. - Urine and blood cultures are pending. - Continue broad-spectrum antibiotics and narrow per sensitivity data when available. - Link catheter patent and draining clear yellow urine with sediment. - Maintain Link catheter. - No acute intervention today - okay to resume diet. Will make NPO at MN and reassess in AM. Can reassess with ALEJANDRO in 24 hours if he does not return to baseline as there may be some residual upper tract obstruction from a thickened bladder wall.If he is having persistent infectious symptoms, potential transurethral unroofing or transrectal drainage could be attempted. Urology will follow. Admission and Anticipated Discharge Date Admission Date: March 17, 2023 Supervising Physician Co-Signing Physician Notes Discussed patient with JUSTIN. Agree with plan. Labs improving, continue to monitor conservatively Subjective Patient seen and examined at bedside in ICU this morning. He is awake and resting in bed. No acute complaints. Denies abdominal, flank or suprapubic pain. No nausea or vomiting. No fever or chills. Link patent and draining clear yellow urine with sediment. Review of Systems Constitutional: as per Subjective / HPI Gastrointestinal: as per Subjective / HPI Genitourinary: + as per Subjective / HPI Physical Exam Constitutional: no acute distress Respiratory: normal respiratory effort; no respiratory distress and no labored breathing Cardiovascular: Rate/Rhythm: + tachycardic Gastrointestinal (Abdomen): Inspection/Auscultation: abdomen normal to inspection; abdomen not distended Percussion/Palpation: abdomen soft; abdomen nontender Musculoskeletal: Head/Neck/Chest: normocephalic Neurologic: moves all extremities and awake Psychiatric: Orientation: alert and oriented x 3 Genitourinary: Link patent and draining clear yellow urine with sediment Results & Data Vital Signs (Past 12 Hours) Vital Signs Temp Pulse Pulse Resp BP BP Pulse Ox 03/18/23 09:30 112 H 24 99 03/18/23 09:20 105/64 03/18/23 09:20 112 H 19 100 03/18/23 09:15 118 H 21 98 03/18/23 09:15 112/61 03/18/23 09:00 105 H 19 98 03/18/23 09:00 112/64 03/18/23 08:45 118 H 20 99 03/18/23 08:45 99/56 L 03/18/23 08:30 112 H 21 97 03/18/23 08:30 97/54 L 03/18/23 08:15 109 H 19 97 03/18/23 08:15 93/59 L 03/18/23 08:00 117 H 20 98 03/18/23 08:00 97/56 L 03/18/23 07:45 108 H 16 99 03/18/23 07:45 102/60 03/18/23 07:30 102 H 19 97 03/18/23 07:30 91/55 L 03/18/23 07:15 100 H 19 99 03/18/23 07:15 99/54 L 03/18/23 07:00 118 H 20 99 03/18/23 07:00 89/53 L 03/18/23 06:47 111/64 03/18/23 06:47 109 H 16 99 03/18/23 06:45 112 H 16 100 03/18/23 06:30 114 H 17 97 03/18/23 06:30 95/69 L 03/18/23 06:15 107 H 23 98 03/18/23 08:00 03/18/23 08:00 118 H 03/18/23 06:00 118 H 18 91/66 L 98 03/18/23 05:36 101 H 21 96/61 L 99 03/18/23 05:00 113 H 22 90/57 L 98 03/18/23 04:30 110 H 20 102/65 98 03/18/23 04:00 105 H 17 90/63 L 99 03/18/23 03:30 36.6 C 119 H 20 97/55 L 99 03/18/23 03:15 122 H 23 120/67 100 03/18/23 03:00 138 H 22 91/62 L 99 03/18/23 02:45 124 H 20 79/63 L 100 03/18/23 02:30 82/55 L 03/18/23 02:30 132 H 22 97 03/18/23 02:09 132 H 20 87/53 L 99 03/18/23 02:03 123 H 20 75/49 L 98 03/18/23 02:02 134 H 23 80/36 L 99 03/18/23 02:00 126 H 23 65/47 L 97 03/18/23 01:30 119 H 19 114/72 97 03/18/23 01:00 134 H 24 97/47 L 96 03/18/23 00:52 122 H 21 97/60 L 96 03/18/23 00:00 137 H 23 79/52 L 100 03/18/23 01:00 124 H 03/18/23 00:46 36.6 C 135 H 19 101/75 95 03/17/23 23:31 135 H 25 H 104/61 95 03/17/23 23:00 123 H 17 115/64 96 03/17/23 22:33 139 H 24 109/64 92 03/17/23 22:10 131 H 13 100 03/17/23 21:40 130 H 24 95 03/17/23 22:35 126 H 16 109/64 99 O2 Del Method 03/18/23 09:30 03/18/23 09:20 03/18/23 09:20 03/18/23 09:15 03/18/23 09:15 03/18/23 09:00 03/18/23 09:00 03/18/23 08:45 03/18/23 08:45 03/18/23 08:30 03/18/23 08:30 03/18/23 08:15 03/18/23 08:15 03/18/23 08:00 03/18/23 08:00 03/18/23 07:45 03/18/23 07:45 03/18/23 07:30 03/18/23 07:30 03/18/23 07:15 03/18/23 07:15 03/18/23 07:00 03/18/23 07:00 03/18/23 06:47 03/18/23 06:47 03/18/23 06:45 03/18/23 06:30 03/18/23 06:30 03/18/23 06:15 03/18/23 08:00 Room Air 03/18/23 08:00 03/18/23 06:00 Room Air 03/18/23 05:36 03/18/23 05:00 Room Air 03/18/23 04:30 Room Air 03/18/23 04:00 03/18/23 03:30 Room Air 03/18/23 03:15 Room Air 03/18/23 03:00 03/18/23 02:45 Room Air 03/18/23 02:30 03/18/23 02:30 03/18/23 02:09 03/18/23 02:03 03/18/23 02:02 03/18/23 02:00 03/18/23 01:30 Room Air 03/18/23 01:00 03/18/23 00:52 Room Air 03/18/23 00:00 03/18/23 01:00 03/18/23 00:46 Room Air 03/17/23 23:31 Room Air 03/17/23 23:00 Room Air 03/17/23 22:33 Room Air 03/17/23 22:10 Room Air 03/17/23 21:40 Room Air 03/17/23 22:35 Room Air PG Care Time/CCT Total # of Minutes Spent Total Time Spent with Patient: Total time spent is greater than 50% in coordination of care (as documented) at patient's floor/unit and/or counseling patient: Coding Level of Care Code None Diagnoses Renal failure N19 Prostate mass N42.89 UTI (urinary tract infection) N39.0
--- NOTE | 2023-03-18 09:53 | Nephrology Consultation ---
Date of Consultation March 18, 2023 Assessment & Plan (1) UTI (urinary tract infection): (2) Hypotension: (3) Atrial fibrillation: (4) Hyperlipidemia: Plan 73-year-old gentleman with acute kidney injury with bilateral hydronephrosis and poor p.o. intake for several days. No recent lab available but on admission creatinine was noted to be 9.8, BUN 287 with multiple electrolyte abnormality including metabolic acidosis, hyperkalemia and hyperphosphatemia. Noted to be significantly hypotensive and volume depleted overall clinically slightly improved with IV boluses as well as pressor support. Urine output has been decent, Link catheter in place. --continue hemodynamics support, okay to continue IV fluid. --significant hyperphosphatemia noted however if renal function continue to improve, phosphate may improve otherwise will consider starting on phosphate binder. -- appreciate urology management of bilateral hydronephrosis -- dose medications for eGFR less than 10 Will follow. Thank you for allowing me to participate in your patient's care. It was a pleasure to see Javier History of Present Illness Reason for Consultation: JAYY, metabolic acidosis, b/l hydronephrosis. Attending Physician: Yariel Tamayo DO History of Present Illness Mr. Lucy Moya is a 73-year-old male with PMH of HTN, A fib, hyperlipidemia admitted with acute kidney injury, hypotension and AFib with RVR. Nephrology consult requested for management of JAYY and electrolyte abnormality. EMR records reviewed in detail during patient's visit. During the visit he was still a bit lethargic and speech was slow but he was mentating well and able to answer few questions. Javeir was brought to [facility] yesterday after he was being found by his friend laying in floor. according to the report he has not been feeling well for several weeks and was not eating, drinking or taking any of his medications. He c/o dizziness and lethargy and reported falling and hitting his head on Wednesday. He has been on hydrochlorothiazide and lisinopril as well as amlodipine for hypertension but he has not been taking those for last few days. Has been on metoprolol for AFib was not taking that either. he reports voiding normally over last few days without any gross hematuria. Denied abdominal pain, vomiting or diarrhea. He denies taking NSAIDs over last few days. in ER CT head was otherwise unremarkable. He was noted to be in AFib with RVR and hypotensive on arrival and received multiple IV fluid boluses with normal saline. Lab showed JAYY with no recent labs available to review except the last creatinine 1.2 in 2017. BUN was 287, creatinine was 9.8, potassium 5.2 and bicarbonate was 13. Phosphorus 9.0. Urinalysis after Link catheter placement showed 2+ proteinuria, 2+ hematuria but no RBC, 2+ bacteriuria. Hb normal, albumin 3.4, Ca normal. CPK 83. CT abdomen pelvis without contrast showed bilateral hydro ureteral nephrosis up to UPJ and concern for bladder outlet obstruction, asymmetric bladder wall thickening, and potential prostate abscess. He had a Link catheter placed and has been having decent urine output. History of hypertension, has been on amlodipine, hydrochlorothiazide, lisinopril and metoprolol which she has not been taking last few days and has been hypotensive since admission requiring pressor support. History of AFib previously refused anticoagulation, has been only on beta-christy. EMR record also showed he refused age appropriate screening including colonoscopy. He lives alone, retired, used to work as a forklift truck mechanic. Prior history of smoking but quit years ago. He reports he gave up on drinking before. No known family history of CKD or ESRD. Renal function slightly improved this morning, creatinine down to 8.5, BUN to 59. Metabolic acidosis slightly improving. Allergies Allergy/AdvReac Type Severity Reaction Status Date / Time No Known Allergies Allergy Verified 03/17/23 20:42 Home Medications Medication Instructions Recorded Confirmed Type amlodipine 10 mg tablet 10 mg PO QAM 03/17/23 03/17/23 History hydrochlorothiazide 25 mg tablet 25 mg PO QAM 03/17/23 03/17/23 History lisinopril 20 mg tablet 20 mg PO QAM 03/17/23 03/17/23 History metoprolol succinate 100 mg 100 mg PO QAM 03/17/23 03/17/23 History tablet,extended release 24 hr Patient History Medical History Abnormal blood chemistry Abnormal finding on thyroid function test Atrial fibrillation Hyperglycemia Hyperlipidemia Hypertension Male erectile disorder of organic origin Umbilical hernia Surgical History History of appendectomy History of cataract surgery History of tonsillectomy Family History Father Laryngeal cancer Social History Smoking Status: Former smoker Tobacco Type: Smokeless Tobacco (Dip or Chew) Second Hand Exposure: No; Do You Dip or Chew Tobacco: No; Tobacco Cessation Education Requested by Patient: No Hx Alcohol Use: No Hx Substance Use: No Preferred Language: Samoan Communication Ability: Effective After School Program Director Required: No Beliefs That Will Affect Care: None marital status: Single Current Living Situation: Alone Other Information That Helps Us Care for You: No Feels Safe at Home: Yes Safety Concerns: Feels Safe At This Time caffeine: No Dental Care, Regularly: No Physical Activity Frequency: Does not Exercise Seatbelt Use: never Sunscreen Use: Yes (Protective clothing ) Assistive Devices: None Review of Systems Review of Systems: Detailed recently of system was done and pertinent positives and negatives mentioned above. Physical Exam Constitutional: WD/WN, vitals as above + ill appearing; no acute distress Eyes: + anicteric sclerae Neck: normal visual inspection Thyroid: no thyromegaly Respiratory: no respiratory distress and no cough Auscultation: lungs clear to auscultation bilaterally Cardiovascular: Rate/Rhythm: + tachycardic and + irregularly irregular Extremities: no edema Gastrointestinal (Abdomen): Inspection/Auscultation: abdomen normal to inspection and normal bowel sounds Percussion/Palpation: abdomen soft; abdomen nontender Musculoskeletal: Extremities: extremities normal to inspection Skin: no rashes, warm and dry Neurologic: no focal motor deficits and not confused Psychiatric: Orientation: alert and oriented x 3 Affect: euthymic affect Results & Data Vital Signs (Past 12 Hours) Vital Signs Temp Pulse Pulse Resp BP BP Pulse Ox 03/18/23 09:30 112 H 24 99 03/18/23 09:20 105/64 03/18/23 09:20 112 H 19 100 03/18/23 09:15 118 H 21 98 03/18/23 09:15 112/61 03/18/23 09:00 105 H 19 98 03/18/23 09:00 112/64 03/18/23 08:45 118 H 20 99 03/18/23 08:45 99/56 L 03/18/23 08:30 112 H 21 97 03/18/23 08:30 97/54 L 03/18/23 08:15 109 H 19 97 03/18/23 08:15 93/59 L 03/18/23 08:00 117 H 20 98 03/18/23 08:00 97/56 L 03/18/23 07:45 108 H 16 99 03/18/23 07:45 102/60 03/18/23 07:30 102 H 19 97 03/18/23 07:30 91/55 L 03/18/23 07:15 100 H 19 99 03/18/23 07:15 99/54 L 03/18/23 07:00 118 H 20 99 03/18/23 07:00 89/53 L 03/18/23 06:47 111/64 03/18/23 06:47 109 H 16 99 03/18/23 06:45 112 H 16 100 03/18/23 06:30 114 H 17 97 03/18/23 06:30 95/69 L 03/18/23 06:15 107 H 23 98 03/18/23 08:00 03/18/23 08:00 118 H 03/18/23 06:00 118 H 18 91/66 L 98 03/18/23 05:36 101 H 21 96/61 L 99 03/18/23 05:00 113 H 22 90/57 L 98 03/18/23 04:30 110 H 20 102/65 98 03/18/23 04:00 105 H 17 90/63 L 99 03/18/23 03:30 36.6 C 119 H 20 97/55 L 99 03/18/23 03:15 122 H 23 120/67 100 03/18/23 03:00 138 H 22 91/62 L 99 03/18/23 02:45 124 H 20 79/63 L 100 03/18/23 02:30 82/55 L 03/18/23 02:30 132 H 22 97 03/18/23 02:09 132 H 20 87/53 L 99 03/18/23 02:03 123 H 20 75/49 L 98 03/18/23 02:02 134 H 23 80/36 L 99 03/18/23 02:00 126 H 23 65/47 L 97 03/18/23 01:30 119 H 19 114/72 97 03/18/23 01:00 134 H 24 97/47 L 96 03/18/23 00:52 122 H 21 97/60 L 96 03/18/23 00:00 137 H 23 79/52 L 100 03/18/23 01:00 124 H 03/18/23 00:46 36.6 C 135 H 19 101/75 95 03/17/23 23:31 135 H 25 H 104/61 95 03/17/23 23:00 123 H 17 115/64 96 03/17/23 22:33 139 H 24 109/64 92 03/17/23 22:10 131 H 13 100 03/17/23 22:35 126 H 16 109/64 99 O2 Del Method 03/18/23 09:30 03/18/23 09:20 03/18/23 09:20 03/18/23 09:15 03/18/23 09:15 03/18/23 09:00 03/18/23 09:00 03/18/23 08:45 03/18/23 08:45 03/18/23 08:30 03/18/23 08:30 03/18/23 08:15 03/18/23 08:15 03/18/23 08:00 03/18/23 08:00 03/18/23 07:45 03/18/23 07:45 03/18/23 07:30 03/18/23 07:30 03/18/23 07:15 03/18/23 07:15 03/18/23 07:00 03/18/23 07:00 03/18/23 06:47 03/18/23 06:47 03/18/23 06:45 03/18/23 06:30 03/18/23 06:30 03/18/23 06:15 03/18/23 08:00 Room Air 03/18/23 08:00 03/18/23 06:00 Room Air 03/18/23 05:36 03/18/23 05:00 Room Air 03/18/23 04:30 Room Air 03/18/23 04:00 03/18/23 03:30 Room Air 03/18/23 03:15 Room Air 03/18/23 03:00 03/18/23 02:45 Room Air 03/18/23 02:30 03/18/23 02:30 03/18/23 02:09 03/18/23 02:03 03/18/23 02:02 03/18/23 02:00 03/18/23 01:30 Room Air 03/18/23 01:00 03/18/23 00:52 Room Air 03/18/23 00:00 03/18/23 01:00 03/18/23 00:46 Room Air 03/17/23 23:31 Room Air 03/17/23 23:00 Room Air 03/17/23 22:33 Room Air 03/17/23 22:10 Room Air 03/17/23 22:35 Room Air PG Care Time/CCT Total # of Minutes Spent Total Time Spent with Patient: Total time spent is greater than 50% in coordination of care (as documented) at patient's floor/unit and/or counseling patient: Coding Level of Care Code 67712 IN/OBS CONSULT LVL 5,80M Diagnoses UTI (urinary tract infection) N39.0 Hypotension I95.9 Atrial fibrillation I48.91 Hyperlipidemia E78.5
[2023-03-18 09:54] LABS: Basophils # (auto) 0.03 K/uL (0-0.2); Basophils % (auto) 0.3 %; Eosinophils # (auto) 0.12 K/uL (0-0.50); Eosinophils % (auto) 1.2 %; Hematocrit (blood only) 37.8 % (42.0-52.0); Hemoglobin 13.3 g/dl (14.0-18.0); Immature Granulocytes # (auto) 0.03 K/uL (0.01-0.20); Immature Granulocytes % (auto) 0.3 %; Lymphocytes # (auto) 0.73 K/uL (1.2-3.4); Lymphocytes % (auto) 7.3 %; Mean Corpuscular Hgb Conc 35.2 g/dL (32.0-36.0); Mean Corpuscular Volume 82.5 fL (80.0-100.0); Mean Platelet Volume 10.8 fL (9.4-12.4); Monocytes # (auto) 0.46 K/uL (0.11-0.59); Monocytes % (auto) 4.6 %; Neutrophils # (auto) 8.66 K/uL (1.40-6.50); Neutrophils % (auto) 86.3 %; Platelet Count 266 K/uL (130-400); RDW Standard Deviation 44.4 fL (36.4-46.3); Red Blood Count 4.58 M/uL (4.70-6.10); White Blood Count 10.03 K/ul (4.8-10.8)
[2023-03-18 10:11] LABS: Base Excess VBG -3.9 mEq/L; HCO3 VBG 19 mmol/L; Oxygen Saturation VBG 85.8 %; PCO2 VBG 25 mmHg (38-50); PO2 VBG 48 mmHg; pH VBG 7.48 (7.36-7.41)
--- NOTE | 2023-03-18 12:02 | Critical Care Progress Note ---
Date of Service March 18, 2023 Assessment & Plan (1) UTI (urinary tract infection): (2) Prostate mass: (3) Renal failure: (4) Atrial fibrillation: (5) Shock circulatory: (6) Hypertension: (7) Hypotension: Plan Reason Critically Ill: 73-year-old male presents to the ICU with hypotension and acute renal failure. Currently on phenylephrine drip, bicarb drip and started on amiodarone drip for A-fib RVR. Neuro - [facility] ICU: Negative Fallno acute findings on CT head or CT for cervical spine. Cardiac - Hypotension -Combination of A-fib RVR and likely UTI sepsis - Continue with phenylephrine drip to maintain maps greater than 65 -Random cortisol 23 - Troponin downtrending A-fib RVR Patient with history of A-fib but not anticoagulated. Patient was given amiodarone without bolus. Respiratory - Currently maintaining oxygen saturation on room air. No history of pulmonary disease. Monitor on pulse ox GI - Renal diet RENAL/LYTES - Acute renal failure likely mixed etiology as the patient has obstructed output with bilateral nephrosis . Patient also on lisinopril and hydrochlorothiazide and decreased p.o. intake. - Nephrology on board - Avoid nephrotoxins and renally adjust medications - CT abdomen and pelvis with moderate bilateral hydro ureteral nephrosis with extension of the ureter dose to the level of the UVJ bilaterally. Asymmetric bladder wall thickening with differential consider raising development of hypertrophic changes or subtle infiltrating neoplastic process. Prostate gland abnormal with ovoid hypodense area with differential consideration including a prostatic cyst or cystic mass. -Urology on board - Indwelling Link catheter, Strict I's and O's ENDO - Continue with ICU hypoglycemia protocol HEME - H&H stable, monitor routine CBC ID -. -- Urinary sepsis Continue with antibiotics Procalcitonin 0.77 Follow-up culture --Prophylaxis VTE: Heparin GI: None Lines: Peripheral Diet: N.p.o. Plan: In/out: +3.3 L, urine output 900 mL Patient is making urine. BUN and creatinine are slowly improving. Titrate down phenylephrine if possible Try to aim for heart rate less than 110 If it is persistently going up and start the patient on amiodarone as cannot use beta-blockers or CCB's given the low blood pressure We will give 150 mL of Plasma-Lyte for 1 L followed by 125 mill an hour. We will keep a close eye on urine output. We will decrease the IV fluid rate based on the urine output Patient does have hyperphosphatemia. We will repeat labs later today. If it is persistent then sevelamer could be thought of. I have personally spent 38 minutes of critical care time in the direct management of this patient. This is a life/limb threatening event. This includes time spent evaluating patient, direct bedside care, chart review, placing orders, interpretation of diagnostic studies, discussion with consultants, patient, and family members, as well as other required patient management activities. This time is exclusive of all separately billable procedures, and teaching time and separate from and in addition to any other critical care service time. Thank you for allowing us to participate in the care of this patient. Please refer to my attending physician's documentation for any further recommendations. Admission and Anticipated Discharge Date Admission Date: March 17, 2023 Subjective Patient seen and examined at bedside. No acute distress, no adverse events overnight He was on 0.7 of phenylephrine at the time of examination with MAP in low 70s. I went down to 0.5 He is awake alert oriented answering all the questions appropriately Denied any headache, no nausea, no vomiting Denies any abdominal pain. Has been afebrile Saturating well on room air Review of Systems Review of Systems: All systems reviewed & are unremarkable except as noted in Subjective Physical Exam Physical Exam: Constitutional: No acute distress HEENT: EOMI, PERRLA Respiratory system: Good air entry bilaterally, no wheeze, no rhonchi, no crackles CVS: S1-S2 positive, no murmurs or gallops Abdomen: Soft, nontender, nondistended, positive bowel sounds x4 Extremities: +2 pulses bilaterally radialis/ dorsalis pedis, no cyanosis, no edema Neuro: Awake alert oriented x3 Psych: Normal mood and affect G/U: Positive Link Skin: no rashes, warm and dry Lymphatic: no cervical or axillary lymphadenopathy Results & Data Results & Data Vital Signs (Past 12 Hours) Vital Signs Temp Pulse Pulse Resp BP BP Pulse Ox 03/18/23 09:30 112 H 24 99 03/18/23 09:20 105/64 03/18/23 09:20 112 H 19 100 03/18/23 09:15 118 H 21 98 03/18/23 09:15 112/61 03/18/23 09:00 105 H 19 98 03/18/23 09:00 112/64 03/18/23 08:45 118 H 20 99 03/18/23 08:45 99/56 L 03/18/23 08:30 112 H 21 97 03/18/23 08:30 97/54 L 03/18/23 08:15 109 H 19 97 03/18/23 08:15 93/59 L 03/18/23 08:00 117 H 20 98 03/18/23 08:00 97/56 L 03/18/23 07:45 108 H 16 99 03/18/23 07:45 102/60 03/18/23 07:30 102 H 19 97 03/18/23 07:30 91/55 L 03/18/23 07:15 100 H 19 99 03/18/23 07:15 99/54 L 03/18/23 07:00 118 H 20 99 03/18/23 07:00 89/53 L 03/18/23 06:47 111/64 03/18/23 06:47 109 H 16 99 03/18/23 06:45 112 H 16 100 03/18/23 06:30 114 H 17 97 03/18/23 06:30 95/69 L 03/18/23 06:15 107 H 23 98 03/18/23 08:00 03/18/23 08:00 118 H 03/18/23 06:00 118 H 18 91/66 L 98 03/18/23 05:36 101 H 21 96/61 L 99 03/18/23 05:00 113 H 22 90/57 L 98 03/18/23 04:30 110 H 20 102/65 98 03/18/23 04:00 105 H 17 90/63 L 99 03/18/23 03:30 36.6 C 119 H 20 97/55 L 99 03/18/23 03:15 122 H 23 120/67 100 03/18/23 03:00 138 H 22 91/62 L 99 03/18/23 02:45 124 H 20 79/63 L 100 03/18/23 02:30 82/55 L 03/18/23 02:30 132 H 22 97 03/18/23 02:09 132 H 20 87/53 L 99 03/18/23 02:03 123 H 20 75/49 L 98 03/18/23 02:02 134 H 23 80/36 L 99 03/18/23 02:00 126 H 23 65/47 L 97 03/18/23 01:30 119 H 19 114/72 97 03/18/23 01:00 134 H 24 97/47 L 96 03/18/23 00:52 122 H 21 97/60 L 96 03/18/23 00:00 137 H 23 79/52 L 100 03/18/23 01:00 124 H 03/18/23 00:46 36.6 C 135 H 19 101/75 95 O2 Del Method 03/18/23 09:30 03/18/23 09:20 03/18/23 09:20 03/18/23 09:15 03/18/23 09:15 03/18/23 09:00 03/18/23 09:00 03/18/23 08:45 03/18/23 08:45 03/18/23 08:30 03/18/23 08:30 03/18/23 08:15 03/18/23 08:15 03/18/23 08:00 03/18/23 08:00 03/18/23 07:45 03/18/23 07:45 03/18/23 07:30 03/18/23 07:30 03/18/23 07:15 03/18/23 07:15 03/18/23 07:00 03/18/23 07:00 03/18/23 06:47 03/18/23 06:47 03/18/23 06:45 03/18/23 06:30 03/18/23 06:30 03/18/23 06:15 03/18/23 08:00 Room Air 03/18/23 08:00 03/18/23 06:00 Room Air 03/18/23 05:36 03/18/23 05:00 Room Air 03/18/23 04:30 Room Air 03/18/23 04:00 03/18/23 03:30 Room Air 03/18/23 03:15 Room Air 03/18/23 03:00 03/18/23 02:45 Room Air 03/18/23 02:30 03/18/23 02:30 03/18/23 02:09 03/18/23 02:03 03/18/23 02:02 03/18/23 02:00 03/18/23 01:30 Room Air 03/18/23 01:00 03/18/23 00:52 Room Air 03/18/23 00:00 03/18/23 01:00 03/18/23 00:46 Room Air Laboratory Results 03/18/23 04:44 03/18/23 04:59 Coding Level of Care Code 32852 CRITICAL CARE EA ADD 30M Diagnoses UTI (urinary tract infection) N39.0 Prostate mass N42.89 Renal failure N19 Atrial fibrillation I48.91 Shock circulatory R57.9 Hypertension I10 Hypotension I95.9 Time Spent (min) 38
[2023-03-18] MEDS ORDERED: PLASMA-LYTE A 1,000 ML IV SCH (13:00)
--- NOTE | 2023-03-18 16:52 | Billing Data ---
Date of Service March 18, 2023 Coding Level of Care Code 46824 SUB INP/OBS CARE
--- NOTE | 2023-03-18 17:58 | XCELERA ---
[id number] \\[id number]
[2023-03-18] MEDS: cefTRIAXone SODIUM 2,000 MG in DEXTROSE 5% 50 ML IV SCH (18:14)
[2023-03-18] MEDS: PLASMA-LYTE A 1,000 ML IV SCH (18:15)
[2023-03-18 19:52] LABS: BUN Creatinine Ratio 30.6 (10-20); Calcium 7.3 mg/dl (8.6-10.3); Creatinine Clr Calc Pharmacy 9.3 ml/min; Est GFR (Non-African American) 6.9 ml/min; Potassium 4.1 mmol/L (3.5-5.1)
[2023-03-18] MEDS ORDERED: TAMSULOSIN HCL 0.4 MG CAP PO SCH (21:00)
[2023-03-19] MEDS ORDERED: AMIODARONE / D5W 360 MG/200 ML BAG IV ONE (03:08)
[2023-03-19] MEDS ORDERED: 0.2 MICRON FILTER SET 1 EACH IV ONE (03:08)
[2023-03-19] MEDS ORDERED: AMIODARONE 360MG / 200ML D5W IV ONE (03:25)
[2023-03-19] MEDS: PHENYLEPHRINE/NSS 25 MG/250 ML BAG IV SCH ×3 (05:14→18:11)
[2023-03-19 05:17] LABS: Albumin Level 2.6 gm/dl (3.4-5.0); Creatinine Clr Calc Pharmacy 10.4 ml/min; Est GFR (African American) 9.1 ml/min; Est GFR (Non-African American) 7.9 ml/min; Magnesium 1.9 mg/dl (1.7-2.4); Phosphorus 6.1 mg/dl (2.5-4.9); Potassium 3.9 mmol/L (3.5-5.1)
--- NOTE | 2023-03-19 05:19 | Electrocardiogram Report ---
Test Reason : Blood Pressure : / mmHG Vent. Rate : 131 BPM Atrial Rate : 000 BPM P-R Int : 000 ms QRS Dur : 086 ms QT Int : 318 ms P-R-T Axes : 000 037 057 degrees QTc Int : 469 ms Atrial fibrillation with rapid ventricular response Abnormal ECG No previous ECGs available Confirmed by Harjeet Little ([id number]) on 03/19/2023 5:18:53 AM Referred By: REFERRED SELF Confirmed By:Harjeet Little
[2023-03-19 05:23] LABS: Basophils # (auto) 0.03 K/uL (0-0.2); Basophils % (auto) 0.3 %; Eosinophils # (auto) 0.19 K/uL (0-0.50); Eosinophils % (auto) 1.8 %; Hematocrit (blood only) 26.6 % (42.0-52.0); Hemoglobin 9.1 g/dl (14.0-18.0); Immature Granulocytes # (auto) 0.04 K/uL (0.01-0.20); Immature Granulocytes % (auto) 0.4 %; Lymphocytes # (auto) 0.98 K/uL (1.2-3.4); Lymphocytes % (auto) 9.5 %; Mean Corpuscular Hemoglobin 28.9 pg (25.0-34.0); Mean Corpuscular Hgb Conc 34.2 g/dL (32.0-36.0); Mean Corpuscular Volume 84.4 fL (80.0-100.0); Mean Platelet Volume 10.3 fL (9.4-12.4); Monocytes # (auto) 0.74 K/uL (0.11-0.59); Monocytes % (auto) 7.2 %; Neutrophils % (auto) 80.8 %; Platelet Count 232 K/uL (130-400); RDW Coefficient of Variation 15.1 % (11.5-14.5); RDW Standard Deviation 45.2 fL (36.4-46.3); Red Blood Count 3.15 M/uL (4.70-6.10); White Blood Count 10.28 K/ul (4.8-10.8)
[2023-03-19 05:32] LABS: BUN Creatinine Ratio 32.1 (10-20)
--- NOTE | 2023-03-19 06:40 | Hospitalist Progress Note ---
Date of Service March 19, 2023 Assessment & Plan (1) Renal failure: Plan: 73yo Male with PMH afib HTN and HLD admitted to [facility] on 03/17 for shock and obstructive renal failure. Shock; Acute Obstructive Renal Failure 2/[address] A/P with prostate hypodensity, without overall BPH, and upstream signs of obstruction with hydroureteronephrosis and bladder wall thickening. Multiple etiologies of shock at this time: hypovolemic (2/2 to ?bleed), distributive/septic (2/2 to ?urinary/prostate infection vs renal failure). - creatinine/phosphorus downtrending significantly since card catheter placed yesterday, and it is draining appropriately - Zosyn downgraded to CTX yesterday to cover for ?urinary/prostate infection - requiring Phenylephrine to maintain MAP>65, and has been up-titrated to maintain MAP (currently at 0.9mcg/kg/min) - continue Normosol-R @75cc/hr - Urology consulted - appreciate recs regarding possible surgical intervention for further evaluation/treatment of mass - Nephrology consulted - appreciate recs - care per ICU Acute Anemia Hgb 13.3 --> 9.1 today, normocytic, no previous anemia. Concerning for bleed but unclear source. ?Retroperitoneal bleed. - hold Heparin SQ - trend H/H at noon - consider repeat CT A/P - defer to ICU Atrial fibrillation with Rapid Ventricular Response - requiring Amiodarone gtt, but still with borderline RVR (HR 110s) - hold home Metoprolol (hypotension) - defer anti-coagulation for now HTN - hold home medications due to hypotension FEN: NPO pending possible urologic procedure Code Status: Full, POA daughter Marlon DVT PPX: hold Heparin for ?bleed PT/OT: ordered Case Management: consulted Dispo: ICU (2) Atrial fibrillation: (3) Hyperlipidemia: (4) Hypertension: Admission and Anticipated Discharge Date Admission Date: March 17, 2023 Supervising Physician Co-Signing Physician Notes I personally examined the patient and verified all narayan points of history and exam, discussed case, and agree with decision making with Dr Ybarra No acute issues. sleeping comfortably. ICU and urology input greatly appreciated. Vitals noted, in general he is resting and appearing comfortable no distress. Breathing unlabored no accessory muscle use good effort. Skin shows no rashes no pallor or icterus. Shock, renal failure, prostate massongoing med management, ICU support, urology management. anemia - with no overt bleeding at bedside and CT not showing retroperitoneal bleed so anemia likely acutely dilutional. Otherwise as above. Subjective Patient feels well overall. No pain, no discomfort with card, and card is draining clear yellow urine. No complaints this morning. Review of Systems Review of Systems: All systems reviewed & are unremarkable except as noted in HPI & below Physical Exam Physical Exam: General: A&Ox3. NAD. Cooperative. HEENT: Atraumatic, normocephalic. Pulm: CTAB A&P. -wheezes, -rales, -rhonchi. Symmetrical chest rise. No increase work of breathing. No respiratory distress. Cardiac: RRR, -mrg. Radial pulses intact and symmetrical. No LE edema. Abdominal: soft, non-tender, non-distended, BS x 4 Skin: warm, dry, no rash Results & Data Results & Data Vital Signs (Past 12 Hours) Vital Signs Temp Pulse Resp BP Pulse Ox 03/19/23 03:30 115 H 17 98 03/19/23 03:30 91/62 L 03/19/23 03:15 91/61 L 03/19/23 03:15 116 H 18 98 03/19/23 03:00 120 H 19 96 03/19/23 03:00 86/64 L 03/19/23 02:45 103/57 L 03/19/23 02:45 129 H 16 98 03/19/23 02:30 87/56 L 03/19/23 02:30 125 H 13 98 03/19/23 02:15 95/59 L 03/19/23 02:15 136 H 23 98 03/19/23 02:00 125 H 22 96 03/19/23 02:00 104/58 L 03/19/23 01:45 120 H 12 97 03/19/23 01:45 90/54 L 03/19/23 01:30 142 H 19 97 03/19/23 01:30 98/54 L 03/19/23 01:15 137 H 15 97 03/19/23 01:15 93/69 L 03/19/23 03:33 36.8 C 03/19/23 01:00 132 H 19 97 03/19/23 01:00 111/62 03/19/23 00:45 90/62 L 03/19/23 00:45 122 H 12 98 03/19/23 00:30 100/66 03/19/23 00:30 127 H 13 97 03/19/23 00:15 125 H 21 98 03/19/23 00:15 90/64 L 03/19/23 00:00 130 H 10 L 98 03/19/23 00:00 96/59 L 03/18/23 23:45 113 H 22 97 03/18/23 23:45 95/62 L 03/18/23 23:30 109/63 03/18/23 23:30 129 H 21 99 03/18/23 23:15 119 H 17 99 03/18/23 23:15 100/58 L 03/18/23 23:00 121 H 20 97 03/18/23 23:00 96/59 L 03/18/23 22:45 97/62 L 03/18/23 22:45 108 H 25 H 98 03/18/23 22:30 114/59 L 03/18/23 22:30 112 H 21 99 03/18/23 22:15 100/59 L 03/18/23 22:15 117 H 16 98 03/19/23 00:01 36.8 C 03/19/23 00:00 122 H 03/18/23 22:00 122 H 23 97 03/18/23 22:00 102/56 L 03/18/23 21:45 89/55 L 03/18/23 21:45 124 H 14 99 03/18/23 21:30 95/53 L 03/18/23 21:30 133 H 22 98 03/18/23 21:15 118 H 19 97 03/18/23 21:15 95/65 L 03/18/23 21:00 126 H 21 98 03/18/23 21:00 97/63 L 03/18/23 20:45 113/66 03/18/23 20:45 140 H 16 99 03/18/23 20:30 107 H 17 98 03/18/23 20:30 99/58 L 03/18/23 20:15 101/63 03/18/23 20:15 127 H 21 98 03/18/23 20:00 97/61 L 03/18/23 20:00 124 H 15 99 03/18/23 19:45 120 H 25 H 99 03/18/23 19:45 97/62 L 03/18/23 19:30 112/64 03/18/23 19:30 117 H 22 100 03/18/23 19:15 102/70 03/18/23 19:15 127 H 22 99 03/18/23 19:00 108 H 24 100 03/18/23 19:00 126/72 03/18/23 20:02 36.5 C Resident Activity Tracking Resident Involvement: Resident Care Provided Care Provided: Adult Hospital Medicine
--- NOTE | 2023-03-19 08:50 | Critical Care Progress Note ---
Date of Service March 19, 2023 Assessment & Plan (1) UTI (urinary tract infection): (2) Prostate mass: (3) Renal failure: (4) Atrial fibrillation: (5) Shock circulatory: (6) Hypertension: (7) Hypotension: Plan Reason Critically Ill: 73-year-old male presents to the ICU with hypotension and acute renal failure. Currently on phenylephrine drip, bicarb drip and started on amiodarone drip for A-fib RVR. Neuro - [facility] ICU: Negative Fallno acute findings on CT head or CT for cervical spine. Cardiac - Hypotension -Combination of A-fib RVR and likely UTI sepsis - Continue with phenylephrine drip to maintain maps greater than 65 -Random cortisol 23 - Troponin downtrending A-fib RVR Patient with history of A-fib but not anticoagulated. Continue with IV Respiratory - Currently maintaining oxygen saturation on room air. No history of pulmonary disease. Monitor on pulse ox GI - Renal diet RENAL/LYTES - Acute renal failure likely mixed etiology as the patient has obstructed output with bilateral nephrosis . Patient also on lisinopril and hydrochlorothiazide and decreased p.o. intake. - Nephrology on board - Avoid nephrotoxins and renally adjust medications - CT abdomen and pelvis with moderate bilateral hydro ureteral nephrosis with extension of the ureter dose to the level of the UVJ bilaterally. Asymmetric bladder wall thickening with differential consider raising development of hypertrophic changes or subtle infiltrating neoplastic process. Prostate gland abnormal with ovoid hypodense area with differential consideration including a prostatic cyst or cystic mass. -Urology on board - Indwelling Link catheter, Strict I's and O's ENDO - Continue with ICU hypoglycemia protocol HEME - -- Drop in hemoglobin No clear source of bleeding Continue to monitor and trend H&H ID -. -- Urinary sepsis Continue with antibiotics Procalcitonin 0.77 Follow-up culture --Prophylaxis VTE: Heparin on hold GI: None Lines: Peripheral Diet: Pantoprazole Plan: In/out: +748, urine output 4.3 L Patient's BUN and creatinine are improving. He is making good amount of urine. There is significant drop in his hemoglobin compared to before almost 4 g. He had no bowel movements I will hold the heparin, repeat H&H later today. Hypomagnesemia being replaced Try to wean off phenylephrine to keep MAP greater than 65 We will see if you are able to get the patient out of the bed to chair. I have personally spent 38 minutes of critical care time in the direct management of this patient. This is a life/limb threatening event. This includes time spent evaluating patient, direct bedside care, chart review, placing orders, interpretation of diagnostic studies, discussion with consultants, patient, and family members, as well as other required patient management activities. This time is exclusive of all separately billable procedures, and teaching time and separate from and in addition to any other critical care service time. Thank you for allowing us to participate in the care of this patient. Please refer to my attending physician's documentation for any further recommendations. Admission and Anticipated Discharge Date Admission Date: March 17, 2023 Subjective Patient seen and examined at bedside. No acute distress, no adverse events overnight. Patient is n.p.o. for possible intervention by urology. He was on 0.9 of phenylephrine, 1 of amiodarone at the time of examination MAP of in the high 60s to low 70s with heart rate in the mid 90s. Denied any nausea vomiting No headache, no blurry vision Has been afebrile Review of Systems Review of Systems: All systems reviewed & are unremarkable except as noted in Subjective Physical Exam Physical Exam: Constitutional: No acute distress HEENT: EOMI, PERRLA Respiratory system: Good air entry bilaterally, no wheeze, no rhonchi, mild crackles bilateral lower lobes CVS: S1-S2 positive, no murmurs or gallops Abdomen: Soft, nontender, nondistended, positive bowel sounds x4 Extremities: +2 pulses bilaterally radialis/ dorsalis pedis, no cyanosis, no edema Neuro: Awake alert oriented x3 Psych: Normal mood and affect G/U: Positive Link Skin: no rashes, warm and dry Lymphatic: no cervical or axillary lymphadenopathy Results & Data Results & Data Vital Signs (Past 12 Hours) Vital Signs Temp Pulse Resp BP Pulse Ox 03/19/23 03:30 115 H 17 98 03/19/23 03:30 91/62 L 03/19/23 03:15 91/61 L 03/19/23 03:15 116 H 18 98 03/19/23 03:00 120 H 19 96 03/19/23 03:00 86/64 L 03/19/23 02:45 103/57 L 03/19/23 02:45 129 H 16 98 03/19/23 02:30 87/56 L 03/19/23 02:30 125 H 13 98 03/19/23 02:15 95/59 L 03/19/23 02:15 136 H 23 98 03/19/23 02:00 125 H 22 96 03/19/23 02:00 104/58 L 03/19/23 01:45 120 H 12 97 03/19/23 01:45 90/54 L 03/19/23 01:30 142 H 19 97 03/19/23 01:30 98/54 L 03/19/23 01:15 137 H 15 97 03/19/23 01:15 93/69 L 03/19/23 03:33 36.8 C 03/19/23 01:00 132 H 19 97 03/19/23 01:00 111/62 03/19/23 00:45 90/62 L 03/19/23 00:45 122 H 12 98 03/19/23 00:30 100/66 03/19/23 00:30 127 H 13 97 03/19/23 00:15 125 H 21 98 03/19/23 00:15 90/64 L 03/19/23 00:00 130 H 10 L 98 03/19/23 00:00 96/59 L 03/18/23 23:45 113 H 22 97 03/18/23 23:45 95/62 L 03/18/23 23:30 109/63 03/18/23 23:30 129 H 21 99 03/18/23 23:15 119 H 17 99 03/18/23 23:15 100/58 L 03/18/23 23:00 121 H 20 97 03/18/23 23:00 96/59 L 03/18/23 22:45 97/62 L 03/18/23 22:45 108 H 25 H 98 03/18/23 22:30 114/59 L 03/18/23 22:30 112 H 21 99 03/18/23 22:15 100/59 L 03/18/23 22:15 117 H 16 98 03/19/23 00:01 36.8 C 03/19/23 00:00 122 H 03/18/23 22:00 122 H 23 97 03/18/23 22:00 102/56 L 03/18/23 21:45 89/55 L 03/18/23 21:45 124 H 14 99 03/18/23 21:30 95/53 L 03/18/23 21:30 133 H 22 98 03/18/23 21:15 118 H 19 97 03/18/23 21:15 95/65 L 03/18/23 21:00 126 H 21 98 03/18/23 21:00 97/63 L Laboratory Results 03/19/23 04:37 03/19/23 04:37 Coding Level of Care Code 80457 CRITICAL CARE 1ST 30-74M Diagnoses UTI (urinary tract infection) N39.0 Prostate mass N42.89 Renal failure N19 Atrial fibrillation I48.91 Shock circulatory R57.9 Hypertension I10 Hypotension I95.9 Time Spent (min) 38
[2023-03-19] MEDS: INSULIN ASPART PER UNIT CHARGE SC SCH ×4 (09:17→20:18)
[2023-03-19] MEDS: AMIODARONE / D5W 360 MG/200 ML BAG IV SCH ×2 (09:17→20:21)
[2023-03-19] MEDS: PLASMA-LYTE A 1,000 ML IV SCH ×2 (09:17→22:20)
--- NOTE | 2023-03-19 10:07 | Nephrology Progress Note ---
Date of Service March 19, 2023 Assessment & Plan (1) UTI (urinary tract infection): (2) Hypotension: (3) Atrial fibrillation: (4) Hyperlipidemia: Plan 73-year-old gentleman with acute kidney injury 2/2 obstructive uropathy with bilateral hydronephrosis and poor p.o. intake for several days. No recent lab available but on admission creatinine was noted to be 9.8, BUN 287 with multiple electrolyte abnormality including metabolic acidosis, hyperkalemia and hyperphosphatemia. Noted to be significantly hypotensive and volume depleted overall clinically slightly improved with IV boluses as well as pressor support. Urine output has been decent, Card catheter in place. 2D Echo with normal EF. Culture negative. Renal function rapidly improving, electrolyte better. Decent UO, card catheter in. --okay to continue IV fluid while NPO and BP still low. Expect renal function to continue to improve. --phos improved, continue to monitor -- dose medications for eGFR less than 10 Will follow. Admission and Anticipated Discharge Date Admission Date: March 17, 2023 Stuart Herrera was seen and evaluated this am. Overall feeling well, asymptomatic but remains hypotensive. Rapid improvement in renal function with improvement in electrolyte and decent UO. Review of Systems Review of Systems: Detailed recently of system was done and pertinent positives and negatives mentioned above. Physical Exam Constitutional: WD/WN, vitals as above + ill appearing; no acute distress Eyes: + anicteric sclerae Neck: normal visual inspection Thyroid: no thyromegaly Respiratory: no respiratory distress and no cough Auscultation: lungs clear to auscultation bilaterally Cardiovascular: Rate/Rhythm: + tachycardic and + irregularly irregular Extremities: no edema Musculoskeletal: Extremities: extremities normal to inspection Skin: no rashes, warm and dry Neurologic: no focal motor deficits and not confused Psychiatric: Orientation: alert and oriented x 3 Affect: euthymic affect Results & Data Vital Signs (Past 12 Hours) Vital Signs Temp Pulse Resp BP Pulse Ox 03/19/23 08:00 115 H 03/19/23 03:30 115 H 17 98 03/19/23 03:30 91/62 L 03/19/23 03:15 91/61 L 03/19/23 03:15 116 H 18 98 03/19/23 03:00 120 H 19 96 05/12/23 03:00 86/64 L 03/19/23 02:45 103/57 L 03/19/23 02:45 129 H 16 98 03/19/23 02:30 87/56 L 03/19/23 02:30 125 H 13 98 03/19/23 02:15 95/59 L 03/19/23 02:15 136 H 23 98 03/19/23 02:00 125 H 22 96 03/19/23 02:00 104/58 L 03/19/23 01:45 120 H 12 97 03/19/23 01:45 90/54 L 03/19/23 01:30 142 H 19 97 03/19/23 01:30 98/54 L 03/19/23 01:15 137 H 15 97 03/19/23 01:15 93/69 L 03/19/23 03:33 36.8 C 03/19/23 01:00 132 H 19 97 03/19/23 01:00 111/62 03/19/23 00:45 90/62 L 03/19/23 00:45 122 H 12 98 03/19/23 00:30 100/66 03/19/23 00:30 127 H 13 97 03/19/23 00:15 125 H 21 98 03/19/23 00:15 90/64 L 03/19/23 00:00 130 H 10 L 98 03/19/23 00:00 96/59 L 03/18/23 23:45 113 H 22 97 03/18/23 23:45 95/62 L 03/18/23 23:30 109/63 03/18/23 23:30 129 H 21 99 03/18/23 23:15 119 H 17 99 03/18/23 23:15 100/58 L 03/18/23 23:00 121 H 20 97 03/18/23 23:00 96/59 L 03/18/23 22:45 97/62 L 03/18/23 22:45 108 H 25 H 98 03/18/23 22:30 114/59 L 03/18/23 22:30 112 H 21 99 03/18/23 22:15 100/59 L 03/18/23 22:15 117 H 16 98 03/19/23 00:01 36.8 C 03/19/23 00:00 122 H PG Care Time/CCT Total # of Minutes Spent Total Time Spent with Patient: Total time spent is greater than 50% in coordination of care (as documented) at patient's floor/unit and/or counseling patient: Coding Level of Care Code 90410 SUB INP/OBS CARE 50MIN Diagnoses UTI (urinary tract infection) N39.0 Hypotension I95.9 Atrial fibrillation I48.91 Hyperlipidemia E78.5
[2023-03-19 10:29] LABS: Hematocrit (blood only) 27.5 % (42.0-52.0); Hemoglobin 9.4 g/dl (14.0-18.0)
[2023-03-19] MEDS: MAGNESIUM SULFATE / D5W 1 GM/100 ML BAG IV SCH ×2 (10:48→12:34)
[2023-03-19] MEDS: PANTOprazole 40 MG in SYRINGE 0 ML IV SCH (10:48)
[2023-03-19 11:21] LABS: Appearance Urine Clear (Clear); Bacteria Urine Automated Negative (Negative); Bilirubin Urine Negative (Negative); Blood Urine 1+ (Negative); Color Urine Yellow; Epithelial Cell Urine Auto >30 /lpf (0-5); Glucose Urine UA Negative (Negative); Ketones Urine Negative (Negative); Leukocyte Esterase Urine 2+ (Negative); Nitrite Urine Negative (Negative); Protein Urine Trace (Negative); Specific Gravity Urine 1.013 (1.000-1.030); Urobilinogen Urine Negative (Negative); WBC Urine Automated >30 /hpf (0-5); pH Urine 5.5 (4.5-7.5)
[2023-03-19] MEDS ORDERED: ONDANSETRON INJ 2 MG/ML 2 ML VIAL IV STA (11:24)
--- NOTE | 2023-03-19 12:07 | CT Scan Report ---
ABDOMEN AND PELVIS CT WITHOUT CONTRAST CT DOSE: 1103.40 mGy.cm HISTORY: Acute generalized abdominal pain with anemia rule out peritoneal bleed. TECHNIQUE: Multiaxial CT images of the abdomen and pelvis were performed without contrast. A dose lo wering technique was utilized adhering to the principles of ALARA. COMPARISON STUDY: 03/17/2023 FINDINGS: Cardiomegaly with coronary artery calcifications. Decreased attenuation of the cardiac bloo d pole suggestive of anemia. Trace pleural effusions with mild bibasilar atelectasis and possible pul monary edema. The unenhanced spleen, pancreas and adrenal gland are unremarkable. Distended gallbladder with cholel ithiasis again noted. No significant gallbladder wall thickening or pericholecystic fluid. Unremarkab le liver. Minimal thinning of the kidneys with bilateral perinephric stranding. Moderate bilateral hy droureteronephrosis without urolith. There are a few exophytic cysts of the kidneys measuring up to 1 .5 cm on the right. Decompressed urinary bladder with wall thickening and trabeculation again noted.. Link catheter in place. Urinary bladder diverticula. Prostamegaly with left prostatic hypodense foc us again noted measuring up to approximately 3.8 cm in greatest dimension with Hounsfield unit of 14. Atherosclerosis of the aorta with fusiform infrarenal ectasia measuring 3.5 cm. Iliac chain lymph nod es measure up to 9 mm on the left. No bowel obstruction or bowel wall thickening. No retroperitoneal hematoma. Umbilical hernia with diastases of 3.3 cm again noted containing fat with nonobstructed loo p of small bowel. Indeterminate lobular 2.9 cm circumscribed lesion in the right hemipelvis adjacent to the internal iliac vessels on image 280 series 3. No acute fracture. Degenerative changes of the spine, pelvis and hips. IMPRESSION: 1. No acute retroperitoneal hematoma. 2. No bowel obstruction or bowel wall thickening. 3. Prostamegaly with chronic bladder outlet obstruction. A Link catheter is in place with persistent moderate bilateral hydroureteronephrosis. 4. Hypodense 3.8 cm lesion of the mid prostate again noted. Correlation with PSA level and follow-up with urology recommended. 5. Distended gallbladder with cholelithiasis. 6. Additional findings as above. ACT 112: Negative or not required by law. The above report was generated using voice recognition software. It may contain grammatical, syntax o r spelling errors. Electronically signed by: Choco Nicholas M.D. 03/19/2023 12:06 PM
--- NOTE | 2023-03-19 13:34 | Urology Progress Note ---
Date of Service March 19, 2023 Assessment & Plan (1) Prostate mass: (2) Renal failure: (3) UTI (urinary tract infection): Plan: 73 yo M critically ill patient admitted for hypotension and acute renal failure, suspected UTI. CT a/p on arrival showed bilateral hydronephrosis, asymmetric bladder wall thickening, and potential prostate mass vs abscess. - Patient afebrile; remains on pressor support and amiodarone drip for A-fib RVR. - Labs reviewed - creatinine improved to 6.32, WBC 10.28, Hgb 9.4. - Urine culture 03/17 showed 3 types of organisms present, all high counts. Repeat UC collected today and pending. - Blood cultures - no growth x 24 hours. - He is on IV ceftriaxone. - Continue broad-spectrum antibiotics and narrow per sensitivity data when available. - Link catheter patent and draining clear yellow urine with sediment - urine output appears adequate. - Maintain Link catheter. - CT a/p performed today and notable for persistent moderate b/l hydro. Hypodense 3.8 cm lesion of mid prostate again noted. - No acute intervention today - okay to resume diet. - Continue with antibiotics and supportive care. Will continue to monitor. Make NPO at MN and reassess in AM. - Urology will follow. Admission and Anticipated Discharge Date Admission Date: March 17, 2023 Subjective Patient seen and examined at bedside this afternoon in ICU. He is awake and resting in bed. Denies flank, abdominal or suprapubic pain. No acute complaints. Link patent and draining clear yellow urine with sediment. No nausea or vomiting. No fever or chills. Review of Systems Constitutional: as per Subjective / HPI Gastrointestinal: as per Subjective / HPI Genitourinary: + as per Subjective / HPI Physical Exam Constitutional: no acute distress Respiratory: normal respiratory effort; no respiratory distress and no labored breathing Cardiovascular: Rate/Rhythm: + tachycardic Gastrointestinal (Abdomen): Inspection/Auscultation: abdomen normal to inspection; abdomen not distended Percussion/Palpation: abdomen soft; abdomen nontender Musculoskeletal: Head/Neck/Chest: normocephalic Neurologic: moves all extremities and awake Psychiatric: Orientation: alert and oriented x 3 Genitourinary: Link patent and draining clear yellow urine with sediment Results & Data Vital Signs (Past 12 Hours) Vital Signs Temp Pulse Resp BP Pulse Ox O2 Del Method 03/19/23 12:05 112 H 20 117/77 98 03/19/23 11:54 36.6 C 03/19/23 10:45 104 H 14 99/67 L 100 03/19/23 10:00 110 H 18 101/64 92 03/19/23 09:00 108 H 19 92/63 L 99 03/19/23 08:00 100 H 18 92/71 L 94 03/19/23 07:00 108 H 15 97/62 L 88 L Room Air 03/19/23 08:00 36.6 C 03/19/23 08:00 115 H 03/19/23 03:30 115 H 17 98 03/19/23 03:30 91/62 L 03/19/23 03:15 91/61 L 03/19/23 03:15 116 H 18 98 03/19/23 03:00 120 H 19 96 03/19/23 03:00 86/64 L 03/19/23 02:45 103/57 L 03/19/23 02:45 129 H 16 98 03/19/23 02:30 87/56 L 03/19/23 02:30 125 H 13 98 03/19/23 02:15 95/59 L 03/19/23 02:15 136 H 23 98 03/19/23 02:00 125 H 22 96 03/19/23 02:00 104/58 L 03/19/23 01:45 120 H 12 97 03/19/23 01:45 90/54 L 03/19/23 03:33 36.8 C PG Care Time/CCT Total # of Minutes Spent Total Time Spent with Patient: Total time spent is greater than 50% in coordination of care (as documented) at patient's floor/unit and/or counseling patient: Coding Level of Care Code 88314 SUB INP/OBS CARE 1/25MIN Diagnoses Prostate mass N42.89 Renal failure N19 UTI (urinary tract infection) N39.0
[2023-03-19] MEDS ORDERED: METOCLOPRAMIDE HCL INJ 5 MG/ML 2 ML VIAL IV STA (14:17)
--- NOTE | 2023-03-19 17:03 | Billing Data ---
Date of Service March 19, 2023 Coding Level of Care Code 62463 SUB INP/OBS CARE
[2023-03-19] MEDS: cefTRIAXone SODIUM 2,000 MG in DEXTROSE 5% 50 ML IV SCH (17:31)
--- NOTE | 2023-03-19 21:35 | Billing Data ---
Date of Service March 19, 2023 Coding Level of Care Code 20972 CRITICAL CARE 1ST 30-74M Comment critical care time 45 minutes
[2023-03-20 05:02] LABS: Basophils # (auto) 0.03 K/uL (0-0.2); Basophils % (auto) 0.4 %; Eosinophils # (auto) 0.21 K/uL (0-0.50); Eosinophils % (auto) 2.6 %; Hematocrit (blood only) 25.6 % (42.0-52.0); Hemoglobin 8.7 g/dl (14.0-18.0); Immature Granulocytes # (auto) 0.02 K/uL (0.01-0.20); Immature Granulocytes % (auto) 0.2 %; Lymphocytes # (auto) 0.73 K/uL (1.2-3.4); Lymphocytes % (auto) 9.1 %; Mean Corpuscular Hemoglobin 28.5 pg (25.0-34.0); Mean Corpuscular Volume 83.9 fL (80.0-100.0); Mean Platelet Volume 10.5 fL (9.4-12.4); Monocytes # (auto) 0.65 K/uL (0.11-0.59); Monocytes % (auto) 8.1 %; Neutrophils # (auto) 6.39 K/uL (1.40-6.50); Neutrophils % (auto) 79.6 %; Platelet Count 220 K/uL (130-400); RDW Coefficient of Variation 15.1 % (11.5-14.5); RDW Standard Deviation 45.1 fL (36.4-46.3); Red Blood Count 3.05 M/uL (4.70-6.10); White Blood Count 8.03 K/ul (4.8-10.8)
[2023-03-20 05:35] LABS: Albumin Level 2.5 gm/dl (3.4-5.0); BUN Creatinine Ratio 28.9 (10-20); Calcium 7.7 mg/dl (8.6-10.3); Creatinine Clr Calc Pharmacy 14.6 ml/min; Est GFR (African American) 13.8 ml/min; Est GFR (Non-African American) 11.9 ml/min; Magnesium 2.1 mg/dl (1.7-2.4); Phosphorus 5.1 mg/dl (2.5-4.9); Potassium 3.7 mmol/L (3.5-5.1)
[2023-03-20 05:37] LABS: Partial Thromboplastin Time 27.1 Seconds (21.0-31.0)
--- NOTE | 2023-03-20 06:50 | Hospitalist Progress Note ---
Date of Service March 20, 2023 Assessment & Plan (1) Renal failure: Plan: 73yo Male with PMH afib HTN and HLD admitted to [facility] on 03/17 for shock and obstructive renal failure. Shock; Acute Obstructive Renal Failure 2/[address] A/P with prostate hypodensity, without overall BPH, and upstream signs of obstruction with hydroureteronephrosis and bladder wall thickening. Multiple etiologies of shock at this time: hypovolemic (2/2 to ?bleed), distributive/septic (2/2 to ?urinary/prostate infection vs renal failure). - creatinine/phosphorus downtrending significantly since card catheter placed yesterday, and it is draining appropriately - Zosyn downgraded to CTX yesterday to cover for ?urinary/prostate infection - requiring Phenylephrine to maintain MAP>65, and has been up-titrated to maintain MAP (currently at 0.9mcg/kg/min) - continue Plasma-Lyte @75cc/hr - Urology consulted - appreciate recs regarding possible surgical intervention for further evaluation/treatment of mass - Nephrology consulted - appreciate recs - care per ICU Acute Anemia Hgb 13.3 --> 9.1 today, normocytic, no previous anemia. Concerning for bleed but unclear source. ?Retroperitoneal bleed. - hold Heparin SQ - trend H/H - consider repeat CT A/P - defer to ICU Atrial fibrillation with Rapid Ventricular Response - requiring Amiodarone gtt, but still with borderline RVR (HR 110s) - hold home Metoprolol (hypotension) - defer anti-coagulation for now HTN - hold home medications due to hypotension FEN: Diet per ICU Code Status: Full, POA daughter Marlon DVT PPX: hold Heparin for ?bleed PT/OT: ordered Case Management: consulted Dispo: ICU (2) Atrial fibrillation: (3) Hyperlipidemia: (4) Hypertension: Admission and Anticipated Discharge Date Admission Date: March 17, 2023 Supervising Physician Co-Signing Physician Notes I personally examined the patient and verified all narayan points of history and exam, discussed case, and agree with decision making with Dr Donahue awake, no complaints, eating ice cream. ICU and urology input greatly appreciated. Vitals noted, in general he is awake, pleasnt and appearing comfortable no distress. Breathing unlabored no accessory muscle use good effort. Skin shows no rashes no pallor or icterus. Shock, renal failure, prostate massongoing med management, ICU support, urology management. anemia - more stable, no overt bleeding. Otherwise as above. Subjective Seen at bedside. States he is feeling overall okay but has some nausea intermittently. Otherwise denies f/c, CP, palp, SOB, abd pain, VICK, dizziness, weakness, numbness. Review of Systems Review of Systems: per HPI Physical Exam Physical Exam: General: A&Ox3. NAD. Cooperative. HEENT: Atraumatic, normocephalic. Pulm: CTAB A&P. -wheezes, -rales, -rhonchi. Symmetrical chest rise. No increase work of breathing. No respiratory distress. Cardiac: RRR, -mrg. Radial pulses intact and symmetrical. No LE edema. Abdominal: soft, non-tender, non-distended, BS x 4 Skin: warm, dry, no rash Results & Data Results & Data Vital Signs (Past 12 Hours) Vital Signs Temp Pulse Resp BP Pulse Ox 03/20/23 00:00 36.5 C 03/20/23 06:00 102 H 16 110/69 03/20/23 05:00 113 H 11 L 111/71 03/20/23 04:00 36.5 C 03/19/23 19:00 96 H 03/20/23 00:00 117 H 03/20/23 04:00 106 H 19 124/71 94 03/20/23 03:00 96 H 22 116/75 98 03/20/23 02:00 111 H 12 107/58 L 95 03/20/23 01:00 115 H 23 128/72 95 03/20/23 00:00 112 H 13 125/66 93 03/19/23 23:00 110 H 16 109/60 94 03/19/23 22:00 100 H 19 111/82 98 03/19/23 21:00 101 H 17 118/63 97 03/19/23 20:00 104 H 14 105/60 97 03/19/23 19:00 84 15 98/68 L 98 03/19/23 20:27 36.5 C Resident Activity Tracking Resident Involvement: Resident Care Provided Care Provided: Adult [facility] Medicine
[2023-03-20] MEDS: INSULIN ASPART PER UNIT CHARGE SC SCH ×4 (07:37→20:47)
--- NOTE | 2023-03-20 08:15 | Critical Care Progress Note ---
Date of Service March 20, 2023 Assessment & Plan (1) UTI (urinary tract infection): (2) Prostate mass: (3) Renal failure: (4) Atrial fibrillation: (5) Shock circulatory: (6) Hypertension: (7) Hypotension: Plan Reason Critically Ill: 73-year-old male presents to the ICU with hypotension and acute renal failure. Currently on phenylephrine drip, bicarb drip and started on amiodarone drip for A-fib RVR. Neuro - [facility] ICU: Negative Fallno acute findings on CT head or CT for cervical spine. Cardiac - Hypotension -Combination of A-fib RVR and likely UTI sepsis - Continue with phenylephrine drip to maintain maps greater than 65 -Random cortisol 23 - Troponin downtrending A-fib RVR Patient with history of A-fib but not anticoagulated. Continue with IV Respiratory - Currently maintaining oxygen saturation on room air. No history of pulmonary disease. Monitor on pulse ox GI - Renal diet RENAL/LYTES - Acute renal failure likely mixed etiology as the patient has obstructed output with bilateral nephrosis . Patient also on lisinopril and hydrochlorothiazide and decreased p.o. intake. - Nephrology on board - Avoid nephrotoxins and renally adjust medications - CT abdomen and pelvis with moderate bilateral hydro ureteral nephrosis with extension of the ureter dose to the level of the UVJ bilaterally. Asymmetric bladder wall thickening with differential consider raising development of hypertrophic changes or subtle infiltrating neoplastic process. Prostate gland abnormal with ovoid hypodense area with differential consideration including a prostatic cyst or cystic mass. -Urology on board - Indwelling Link catheter, Strict I's and O's ENDO - Continue with ICU hypoglycemia protocol HEME - -- Drop in hemoglobin No clear source of bleeding Continue to monitor and trend H&H CT abdomen pelvis was negative for any retroperitoneal bleed. Platelets are stable unlikely to be DIC/hemolysis ID -. -- Urinary sepsis Continue with antibiotics Procalcitonin 0.77 Follow-up culture --Prophylaxis VTE: Heparin on hold GI: None Lines: Peripheral Diet: Pantoprazole Plan: In/out: -1.1 L, urine output 4.1 L BUN/creatinine is improving. We will give 20 mEq of potassium. Repeat H&H later today. Peripheral smear to look for hemolysis Try to wean off phenylephrine to keep MAP greater than 65 If you are able to wean off of the phenylephrine then we will start metoprolol at a lower dose to control the patient's heart rate Out of bed to chair I have personally spent 35 minutes of critical care time in the direct management of this patient. This is a life/limb threatening event. This includes time spent evaluating patient, direct bedside care, chart review, placing orders, interpretation of diagnostic studies, discussion with consultants, patient, and family members, as well as other required patient management activi ties. This time is exclusive of all separately billable procedures, and teaching time and separate from and in addition to any other critical care service time. Thank you for allowing us to participate in the care of this patient. Please refer to my attending physician's documentation for any further recommendations. Admission and Anticipated Discharge Date Admission Date: March 17, 2023 Subjective Patient seen and examined at bedside. No acute distress, no adverse events overnight. He was on 0.2 mics of phenylephrine with MAP in the low 70s Did complain of mild nausea. No abdominal pain, no headaches Still on amiodarone 0.5. No hematochezia or melanotic stools. Review of Systems Review of Systems: All systems reviewed & are unremarkable except as noted in Subjective Physical Exam Physical Exam: Constitutional: No acute distress HEENT: EOMI, PERRLA Respiratory system: Good air entry bilaterally, no wheeze, no rhonchi, mild crackles bilateral lower lobes CVS: S1-S2 positive, no murmurs or gallops, irregular Abdomen: Soft, nontender, nondistended, positive bowel sounds x4 Extremities: +2 pulses bilaterally radialis/ dorsalis pedis, no cyanosis, no edema Neuro: Awake alert oriented x3 Psych: Normal mood and affect G/U: Positive Link Skin: no rashes, warm and dry Lymphatic: no cervical or axillary lymphadenopathy Results & Data Results & Data Vital Signs (Past 12 Hours) Vital Signs Temp Pulse Resp BP Pulse Ox 03/20/23 07:19 121 H 13 107/76 03/20/23 07:00 106 H 19 128/77 97 03/20/23 07:29 36.7 C 03/20/23 07:09 36.6 C 03/20/23 00:00 36.5 C 03/20/23 06:00 102 H 16 110/69 03/20/23 05:00 113 H 11 L 111/71 03/20/23 04:00 36.5 C 03/20/23 00:00 117 H 03/20/23 04:00 106 H 19 124/71 94 03/20/23 03:00 96 H 22 116/75 98 03/20/23 02:00 111 H 12 107/58 L 95 03/20/23 01:00 115 H 23 128/72 95 03/20/23 00:00 112 H 13 125/66 93 03/19/23 23:00 110 H 16 109/60 94 03/19/23 22:00 100 H 19 111/82 98 03/19/23 21:00 101 H 17 118/63 97 03/19/23 20:27 36.5 C Laboratory Results 03/20/23 04:28 03/20/23 04:28 Coding Level of Care Code 80436 CRITICAL CARE 1ST 30-74M Diagnoses UTI (urinary tract infection) N39.0 Prostate mass N42.89 Renal failure N19 Atrial fibrillation I48.91 Shock circulatory R57.9 Hypertension I10 Hypotension I95.9 Time Spent (min) 35
[2023-03-20] MEDS ORDERED: POTASSIUM CHLORIDE CRTAB 20 MEQ TABCR PO STA (08:28)
[2023-03-20] MEDS: AMIODARONE / D5W 360 MG/200 ML BAG IV SCH ×2 (08:32→20:43)
[2023-03-20] MEDS: PLASMA-LYTE A 1,000 ML IV SCH ×2 (08:32→16:48)
[2023-03-20] MEDS ORDERED: METOCLOPRAMIDE HCL INJ 5 MG/ML 2 ML VIAL IV PRN (08:48)
--- NOTE | 2023-03-20 09:23 | Urology Progress Note ---
Date of Service March 20, 2023 Assessment & Plan (1) Renal failure: Plan: Creatinine continues to improve. Persistent hydronephrosis was seen on most recent CT scan, however as long as his kidney function continues to improve, I would hold off ureteral stent placement. (2) UTI (urinary tract infection): Plan: Repeat urine culture is pending. Agree with continuing antibiotics and narrowing coverage as culture data becomes available. (3) Prostate mass: Plan: We discussed the finding of the area on the prostate. This could represent a prostatic abscess, however in the absence of fevers, leukocytosis, bacteremia, localized symptoms, this diagnosis is not entirely clear. Malignancy would be somewhat less likely but not possible. Since he continues to improve clinically with conservative management, we will hold off on surgical intervention for now. It is okay for him to have a diet from urology perspective. We will continue to follow along, but not plan for any intervention today. Admission and Anticipated Discharge Date Admission Date: March 17, 2023 Subjective Feeling some nausea today. Denies any fevers or chills. Denies any pain or pressure anywhere, specifically in the perineum or between his bladder and bowels. Blood cultures negative, repeat urine culture pending WBC 8.03 Creatinine continues to improve (4.5 down from 6.3 yesterday) Review of Systems Review of Systems: 12 point review of systems negative except for otherwise indicated. Physical Exam Physical Exam: Frail-appearing, NAD Cardiovascular: Tachycardic on telemetry Genitourinary: Link catheter in place draining well Results & Data Vital Signs (Past 12 Hours) Vital Signs Temp Pulse Resp BP Pulse Ox 03/20/23 08:30 106 H 12 98 03/20/23 08:30 140/64 03/20/23 08:15 107/65 03/20/23 08:15 118 H 15 03/20/23 08:00 110 H 28 H 94 03/20/23 08:00 115/64 03/20/23 07:45 104 H 29 H 03/20/23 07:45 109/65 03/20/23 07:40 116/64 03/20/23 07:19 121 H 13 107/76 03/20/23 07:00 106 H 19 128/77 97 03/20/23 07:29 36.7 C 03/20/23 07:09 36.6 C 03/20/23 00:00 36.5 C 03/20/23 06:00 102 H 16 110/69 03/20/23 05:00 113 H 11 L 111/71 03/20/23 04:00 36.5 C 03/20/23 00:00 117 H 03/20/23 04:00 106 H 19 124/71 94 03/20/23 03:00 96 H 22 116/75 98 03/20/23 02:00 111 H 12 107/58 L 95 03/20/23 01:00 115 H 23 128/72 95 03/20/23 00:00 112 H 13 125/66 93 03/19/23 23:00 110 H 16 109/60 94 03/19/23 22:00 100 H 19 111/82 98 PG Care Time/CCT Total # of Minutes Spent Total Time Spent with Patient: Total time spent is greater than 50% in coordination of care (as documented) at patient's floor/unit and/or counseling patient: Coding Level of Care Code 63502 SUB INP/OBS CARE 2/35MIN Diagnoses Renal failure N19 Renal failure chronicity: acute UTI (urinary tract infection) N39.0 Prostate mass N42.89 (1) Renal failure Renal failure chronicity: acute
[2023-03-20] MEDS: PANTOprazole 40 MG in SYRINGE 0 ML IV SCH (11:11)
--- NOTE | 2023-03-20 11:20 | Nephrology Progress Note ---
Date of Service March 20, 2023 Assessment & Plan (1) Acute kidney injury: Plan: Attributed to obstructive nephropathy and dehydration. Clinically improving. Continue aggressive IV hydration and encourage PO fluids. Electrolytes acceptable. Medications appropriately dosed for kidney function. Document strict I/O's. Repeat metabolic profile tomorrow AM. Plasmalyte infusion rate increased this AM. (2) Obstructive nephropathy: Plan: Link to gravity. Clinically improving. CT demonstrating enlarged prostate with ~3 cm lesion. (3) Hydronephrosis: Plan: Link to gravity. Excellent urine output. Kidney function improving. (4) Prostate asymmetry: Plan: Urology following. No plan for intervention at this time. Remains on ceftriaxone. Repeat urine Cx pending. Initial urine culture polymicrobial. (5) Hypotension: Plan: Phenylephrine weaned off. Improved intravascular volume. Continue to encourage fluids. Maintain positive fluid balance. Home antihypertensives have been held. Admission and Anticipated Discharge Date Admission Date: March 17, 2023 Subjective No acute events overnight. Javier is resting comfortably in his hospital bed. No fevers or chills. Phenylephrine weaned off. Denies pain. PO intake fair. Review of Systems Review of Systems: All systems reviewed & are unremarkable except as noted in HPI & below Constitutional: + fatigue Physical Exam Constitutional: well developed and + thin; no acute distress Eyes: + anicteric sclerae; no corneal abnormality ENMT: Ears: no hearing impairment Mouth: + dry oral mucous membranes Neck: normal visual inspection and trachea midline Respiratory: normal respiratory effort Auscultation: lungs clear to auscultation bilaterally Cardiovascular: Rate/Rhythm: regular rate and + tachycardic Heart Sounds: normal S1 and normal S2 Extremities: + edema Musculoskeletal: Extremities: no cyanosis and no clubbing Skin: normal turgor; no jaundice Neurologic: Motor/Sensory: no tremor and no asterixis Psychiatric: Orientation: alert and oriented x 3 Results & Data Vital Signs (Past 12 Hours) Vital Signs Temp Pulse Resp BP Pulse Ox O2 Del Method 03/20/23 10:00 119 H 12 99/58 L 97 Room Air 03/20/23 09:45 99 H 15 103/71 03/20/23 09:30 110 H 15 113/65 99 03/20/23 09:15 109/71 03/20/23 09:15 97 H 16 03/20/23 09:00 110 H 17 113/70 99 Room Air 03/20/23 08:30 106 H 12 98 03/20/23 08:30 140/64 03/20/23 08:15 107/65 03/20/23 08:15 118 H 15 03/20/23 08:00 110 H 28 H 94 03/20/23 08:00 115/64 03/20/23 07:45 104 H 29 H 03/20/23 07:45 109/65 03/20/23 07:40 116/64 03/20/23 07:19 121 H 13 107/76 03/20/23 07:00 106 H 19 128/77 97 03/20/23 07:29 36.7 C 03/20/23 07:09 36.6 C 03/20/23 00:00 36.5 C 03/20/23 06:00 102 H 16 110/69 03/20/23 05:00 113 H 11 L 111/71 03/20/23 04:00 36.5 C 03/20/23 00:00 117 H 03/20/23 04:00 106 H 19 124/71 94 03/20/23 03:00 96 H 22 116/75 98 03/20/23 02:00 111 H 12 107/58 L 95 03/20/23 01:00 115 H 23 128/72 95 03/20/23 00:00 112 H 13 125/66 93 Laboratory Results Laboratory Results - last 24 hr 03/19/23 03/19/23 03/19/23 10:40 11:37 16:42 WBC RBC Hgb Hct MCV MCH MCHC RDW Std Deviation RDW Coeff of Efrain Plt Count MPV Immature Gran % (Auto) Neut % (Auto) Lymph % (Auto) Shelby % (Auto) Eos % (Auto) Baso % (Auto) Neut # (Auto) Lymph # (Auto) Shelby # (Auto) Eos # (Auto) Baso # (Auto) Immature Gran # (Auto) Peripher Smr Path Cons APTT PTT Ratio Sodium Potassium Chloride Carbon Dioxide Anion Gap BUN Creatinine Est Cr Clr Drug Dosing Est GFR ( Amer) Est GFR (Non-Af Amer) BUN/Creatinine Ratio Glucose POC Glucose 198 H 124 H Calcium Phosphorus Magnesium Albumin Urine WBC (Auto) >30 H Urine RBC (Auto) 5-10 H U Hyaline Cast (Auto) 1-5 U Epithel Cells (Auto) >30 H Urine Bacteria (Auto) Negative Ur Renal Epithelial Cell Not Reportable 03/19/23 03/20/23 03/20/23 20:15 04:28 04:28 WBC 8.03 RBC 3.05 L Hgb 8.7 L Hct 25.6 L MCV 83.9 MCH 28.5 MCHC 34.0 RDW Std Deviation 45.1 RDW Coeff of Efrain 15.1 H Plt Count 220 MPV 10.5 Immature Gran % (Auto) 0.2 Neut % (Auto) 79.6 Lymph % (Auto) 9.1 Shelby % (Auto) 8.1 Eos % (Auto) 2.6 Baso % (Auto) 0.4 Neut # (Auto) 6.39 Lymph # (Auto) 0.73 L Shelby # (Auto) 0.65 H Eos # (Auto) 0.21 Baso # (Auto) 0.03 Immature Gran # (Auto) 0.02 Peripher Smr Path Cons Pending APTT PTT Ratio Sodium 143 Potassium 3.7 Chloride 110 H Carbon Dioxide 20 L Anion Gap 13 H BUN 130 H D Creatinine 4.50 H D Est Cr Clr Drug Dosing 14.6 Est GFR ( Amer) 13.8 Est GFR (Non-Af Amer) 11.9 BUN/Creatinine Ratio 28.9 H Glucose 101 H POC Glucose 151 H Calcium 7.7 L Phosphorus 5.1 H Magnesium 2.1 Albumin 2.5 L Urine WBC (Auto) Urine RBC (Auto) U Hyaline Cast (Auto) U Epithel Cells (Auto) Urine Bacteria (Auto) Ur Renal Epithelial Cell 03/20/23 03/20/23 03/20/23 04:28 04:28 07:13 WBC RBC Hgb Hct MCV MCH MCHC RDW Std Deviation RDW Coeff of Efrain Plt Count MPV Immature Gran % (Auto) Neut % (Auto) Lymph % (Auto) Shelby % (Auto) Eos % (Auto) Baso % (Auto) Neut # (Auto) Lymph # (Auto) Shelby # (Auto) Eos # (Auto) Baso # (Auto) Immature Gran # (Auto) Peripher Smr Path Cons Cancelled APTT 27.1 PTT Ratio 1.0 Sodium Potassium Chloride Carbon Dioxide Anion Gap BUN Creatinine Est Cr Clr Drug Dosing Est GFR ( Amer) Est GFR (Non-Af Amer) BUN/Creatinine Ratio Glucose POC Glucose 106 H Calcium Phosphorus Magnesium Albumin Urine WBC (Auto) Urine RBC (Auto) U Hyaline Cast (Auto) U Epithel Cells (Auto) Urine Bacteria (Auto) Ur Renal Epithelial Cell 03/20/23 11:15 WBC RBC Hgb Hct MCV MCH MCHC RDW Std Deviation RDW Coeff of Efrain Plt Count MPV Immature Gran % (Auto) Neut % (Auto) Lymph % (Auto) Shelby % (Auto) Eos % (Auto) Baso % (Auto) Neut # (Auto) Lymph # (Auto) Shelby # (Auto) Eos # (Auto) Baso # (Auto) Immature Gran # (Auto) Peripher Smr Path Cons APTT PTT Ratio Sodium Potassium Chloride Carbon Dioxide Anion Gap BUN Creatinine Est Cr Clr Drug Dosing Est GFR ( Amer) Est GFR (Non-Af Amer) BUN/Creatinine Ratio Glucose POC Glucose 111 H Calcium Phosphorus Magnesium Albumin Urine WBC (Auto) Urine RBC (Auto) U Hyaline Cast (Auto) U Epithel Cells (Auto) Urine Bacteria (Auto) Ur Renal Epithelial Cell PG Care Time/CCT Total # of Minutes Spent Total Time Spent with Patient: Total time spent is greater than 50% in coordination of care (as documented) at patient's floor/unit and/or counseling patient: Coding Level of Care Code 67736 SUB INP/OBS CARE 3/50MIN Diagnoses Acute kidney injury N17.9 Obstructive nephropathy N13.8 Hydronephrosis N13.30 Prostate asymmetry N42.89 Hypotension I95.9 Hypotension type: unspecified hypotension type (5) Hypotension Hypotension type: unspecified hypotension type Qualified Code(s): I95.9 - Hypotension, unspecified
[2023-03-20 12:33] LABS: Hematocrit (blood only) 26.5 % (42.0-52.0); Hemoglobin 8.8 g/dl (14.0-18.0)
[2023-03-20] MEDS: PHENYLEPHRINE/NSS 25 MG/250 ML BAG IV SCH (13:11)
--- NOTE | 2023-03-20 14:06 | Billing Data ---
Date of Service March 20, 2023 Coding Level of Care Code 66692 SUB INP/OBS CARE
[2023-03-20] MEDS ORDERED: METOPROLOL TARTRATE 25 MG TAB PO SCH (14:25)
[2023-03-20] MEDS: cefTRIAXone SODIUM 2,000 MG in DEXTROSE 5% 50 ML IV SCH (17:08)
[2023-03-21] MEDS: PLASMA-LYTE A 1,000 ML IV SCH ×4 (00:23→21:56)
[2023-03-21] MEDS: PHENYLEPHRINE/NSS 25 MG/250 ML BAG IV SCH ×3 (00:24→16:42)
[2023-03-21] MEDS ORDERED: METOPROLOL TARTRATE 25 MG TAB PO SCH (03:00)
--- NOTE | 2023-03-21 06:57 | Hospitalist Progress Note ---
Date of Service March 21, 2023 Assessment & Plan (1) Acute kidney injury: Plan: 73yo Male with PMH afib HTN and HLD admitted to [facility] on 03/17 for shock and obstructive renal failure. Shock; JAYY 2/2 Prostatic Mass/Obstruction CT A/P with prostate hypodensity, without overall BPH, and upstream signs of obstruction with hydroureteronephrosis and bladder wall thickening. Multiple etiologies of shock at this time: hypovolemic (2/2 to ?bleed), distributive/septic (2/2 to ?urinary/prostate infection vs renal failure). - creatinine/phosphorus downtrending significantly since card catheter placed, and it is draining appropriately - Phenylephrine weaned off on 03/20 in AM, maintaining adequate MAP since then - Zosyn downgraded to CTX on 03/19 (abx day 4 today) - to cover for ?urinary/prostate infection - continue Plasma-Lyte @75cc/hr - Urology consulted - appreciate recs regarding possible surgical intervention for further evaluation/treatment of mass - Nephrology consulted - appreciate recs - downgraded from ICU today Atrial fibrillation with Rapid Ventricular Response - requiring Amiodarone gtt and still with RVR (HR 110s-120s) - resumed Metoprolol at lower dose today - 25mg PO BID (home dose is 100mg To prol XL daily) - patient was not on anti-coagulation prior to admission: hold for now, given possibility for Urologic procedure - consider Cardiology consultation if remains uncontrolled Acute Normocytic Anemia Hgb 8.4 today, normocytic, stabilizing over last several days. No previous anemia. CT A/P on 03/19 without evidence for bleed, and no other evidence of acting bleeding. ?2/2 to renal failure, as we do not know chronicity of this (no recent baseline in our system). May be due to bone marrow dysfunction vs iron deficiency as well. - check ferritin, iron profile, B12, folate - check reticulocyte count; peripheral smear collected and pending - trend CBC daily HTN - hold home medications due to hypotension T2DM A1c 6.6 on 03/18, new diagnosis. - SSI while hospitalized - consider initiation of Metformin on discharge FEN: heart-healthy/DM2/renal diet; Normosol-R @75cc/hr Code Status: Full, POA daughter Marlon DVT PPX: hold Heparin for ?bleed PT/OT: recommend SNF Case Management: consulted Dispo: stable for downgrade to PCU (2) Atrial fibrillation: (3) Hyperlipidemia: (4) Hypertension: Admission and Anticipated Discharge Date Admission Date: March 17, 2023 Supervising Physician Co-Signing Physician Notes I personally examined the patient and verified all narayan points of history and exam, discussed case, and agree with decision making with Dr Ybarra Feels fairly good overall. Discussed with nephrology, input greatly appreciated. CBC and basic metabolic panel reviewed.. Vitals noted, in general he is awake, pleasnt and appearing comfortable no distress. Breathing unlabored no accessory muscle use good effort. Skin shows no rashes no pallor or icterus. Shock, renal failure, prostate massongoing med management, appreciate cloud consultant input, improving and stable for telemetry. anemia -no overall stable, no overt bleeding suspect more baseline range with CKD, with a little bit of dilution effect and iatrogenic from blood draws as far as drops the last day or 2, his major drop with hindsight was almost certainly delusional. Otherwise as above. Subjective Has been off pressors for 24 hours. Remains on Amiodarone gtt and still in RVR 110s-120s. Patient feels well this morning. No fever/chills. No chest pain/palpitations. No lightheadedness. No pain. Review of Systems Review of Systems: All systems reviewed & are unremarkable except as noted in HPI & below Physical Exam Physical Exam: General: A&Ox3. NAD. Cooperative. HEENT: Atraumatic, normocephalic. Pulm: CTAB A&P. -wheezes, -rales, -rhonchi. Symmetrical chest rise. No increase work of breathing. No respiratory distress. Cardiac: irregularly irregular rhythm, tachycardic rate, -mrg. Radial pulses intact and symmetrical. No LE edema. Abdominal: soft, non-tender, non-distended, BS x 4 Skin: warm, dry, no rash Results & Data Results & Data Vital Signs (Past 12 Hours) Vital Signs Pulse Resp BP Pulse Ox 03/21/23 00:00 106 H 17 97 03/21/23 00:00 109/68 03/20/23 23:00 115 H 13 99 03/20/23 23:00 114/69 03/20/23 22:00 114 H 16 98 03/20/23 22:00 115/68 03/20/23 21:00 119 H 17 99 03/20/23 21:00 117/83 03/20/23 20:00 102 H 16 99 03/20/23 20:00 107/77 03/20/23 19:00 105 H 9 L 99 03/20/23 19:00 109/73 Resident Activity Tracking Resident Involvement: Resident Care Provided Care Provided: Adult Hospital Medicine
[2023-03-21 07:04] LABS: BUN Creatinine Ratio 25.5 (10-20); Calcium 7.7 mg/dl (8.6-10.3); Creatinine Clr Calc Pharmacy 23.1 ml/min; Est GFR (African American) 20.4 ml/min; Est GFR (Non-African American) 17.6 ml/min; Phosphorus 3.4 mg/dl (2.5-4.9); Potassium 3.6 mmol/L (3.5-5.1)
[2023-03-21 07:23] LABS: Partial Thromboplastin Time 27.3 Seconds (21.0-31.0)
[2023-03-21] MEDS ORDERED: POTASSIUM CHLORIDE CRTAB 20 MEQ TABCR PO STA (07:38)
[2023-03-21 07:44] LABS: Basophils # (auto) 0.03 K/uL (0-0.2); Basophils % (auto) 0.5 %; Eosinophils # (auto) 0.23 K/uL (0-0.50); Eosinophils % (auto) 3.5 %; Hematocrit (blood only) 25.2 % (42.0-52.0); Hemoglobin 8.4 g/dl (14.0-18.0); Immature Granulocytes # (auto) 0.03 K/uL (0.01-0.20); Immature Granulocytes % (auto) 0.5 %; Lymphocytes # (auto) 0.76 K/uL (1.2-3.4); Lymphocytes % (auto) 11.4 %; Mean Corpuscular Hemoglobin 28.4 pg (25.0-34.0); Mean Corpuscular Hgb Conc 33.3 g/dL (32.0-36.0); Mean Corpuscular Volume 85.1 fL (80.0-100.0); Monocytes # (auto) 0.51 K/uL (0.11-0.59); Monocytes % (auto) 7.7 %; Neutrophils # (auto) 5.09 K/uL (1.40-6.50); Neutrophils % (auto) 76.4 %; Platelet Count 196 K/uL (130-400); RDW Standard Deviation 45.1 fL (36.4-46.3); Red Blood Count 2.96 M/uL (4.70-6.10); White Blood Count 6.65 K/ul (4.8-10.8)
[2023-03-21] MEDS: INSULIN ASPART PER UNIT CHARGE SC SCH ×4 (07:44→20:18)
--- NOTE | 2023-03-21 08:12 | Critical Care Progress Note ---
Date of Service March 21, 2023 Assessment & Plan (1) UTI (urinary tract infection): (2) Prostate mass: (3) Renal failure: (4) Atrial fibrillation: (5) Shock circulatory: (6) Hypertension: (7) Hypotension: Plan Reason Critically Ill: 73-year-old male presents to the ICU with hypotension and acute renal failure. Neuro - [facility] ICU: Negative Fallno acute findings on CT head or CT for cervical spine. Cardiac - Hypotension -Combination of A-fib RVR and likely UTI sepsis -Has been off phenylephrine since 03/20/2023 -Random cortisol 23 A-fib RVR Patient with history of A-fib but not anticoagulated. Continue with IV Respiratory - Currently maintaining oxygen saturation on room air. No history of pulmonary disease. Monitor on pulse ox GI - Renal diet RENAL/LYTES - Acute renal failure likely mixed etiology as the patient has obstructed output with bilateral nephrosis . Patient also on lisinopril and hydrochlorothiazide and decreased p.o. intake. - Nephrology on board - Avoid nephrotoxins and renally adjust medications - CT abdomen and pelvis with moderate bilateral hydro ureteral nephrosis with extension of the ureter dose to the level of the UVJ bilaterally. Asymmetric bladder wall thickening with differential consider raising development of hypertrophic changes or subtle infiltrating neoplastic process. Prostate gland abnormal with ovoid hypodense area with differential consideration including a prostatic cyst or cystic mass. -Urology on board - Indwelling Link catheter, Strict I's and O's ENDO - Continue with ICU hypoglycemia protocol HEME - -- Drop in hemoglobin No clear source of bleeding Continue to monitor and trend H&H CT abdomen pelvis was negative for any retroperitoneal bleed. Platelets are stable unlikely to be DIC/hemolysis ID -. -- Urinary sepsis Continue with antibiotics for total of 7 days Procalcitonin 0.77 Blood culture and urine culture negative to date --Prophylaxis VTE: Heparin on hold GI: None Lines: Peripheral Diet: Pantoprazole Plan: In/out: +2.3 L, urine output 3.3 L, +6 L since coming to the hospital Potassium being replaced. I will decrease the rate of IV fluids to 75 mill an hour. Adjust the IV rate to the urine output. Patient has been off phenylephrine since yesterday afternoon. He has been started on metoprolol 12.5 twice daily. I will increase it to 25 mg twice daily Continue with amiodarone drip for the time being. H&H is stable Patient hemodynamically stable to be downgraded to telemetry floor. Case discussed with hospitalist Please note the above document was generated using voice recognition software. It may contain grammatical, syntax or spelling errors.Any formal questions or concerns about the content, text or information contained within the body of this dictation should be directly addressed to the provider for clarification. Admission and Anticipated Discharge Date Admission Date: March 17, 2023 Subjective Patient seen and examined at bedside. No acute distress, no adverse events overnight. He has been off of phenylephrine since motor than 18 hours. Denies any chest pain, no nausea, no vomiting today No palpitation, no dizziness, no shortness of breath Systolic blood pressure at the time of examination was in the 100. With MAP in the 70s Review of Systems Review of Systems: All systems reviewed & are unremarkable except as noted in Subjective Physical Exam Physical Exam: Constitutional: No acute distress HEENT: EOMI, PERRLA Respiratory system: Good air entry bilaterally, no wheeze, no rhonchi, mild crackles bilateral lower lobes CVS: S1-S2 positive, no murmurs or gallops, irregular Abdomen: Soft, nontender, nondistended, positive bowel sounds x4 Extremities: +2 pulses bilaterally radialis/ dorsalis pedis, no cyanosis, no edema Neuro: Awake alert oriented x3 Psych: Normal mood and affect G/U: Positive Link Skin: no rashes, warm and dry Lymphatic: no cervical or axillary lymphadenopathy Results & Data Results & Data Vital Signs (Past 12 Hours) Vital Signs Pulse Resp BP Pulse Ox 03/21/23 06:00 110 H 23 99 03/21/23 06:00 112/74 03/21/23 05:00 92 H 14 98 03/21/23 05:00 115/67 03/21/23 04:00 100 H 18 97 03/21/23 04:00 95/63 L 03/21/23 03:00 112 H 23 96 03/21/23 03:00 102/62 03/21/23 02:00 116 H 18 97 03/21/23 02:00 122/74 03/21/23 01:00 116 H 8 L 98 03/21/23 01:00 113/69 03/21/23 00:00 106 H 17 97 03/21/23 00:00 109/68 05/13/23 23:00 115 H 13 99 03/20/23 23:00 114/69 03/20/23 22:00 114 H 16 98 03/20/23 22:00 115/68 03/20/23 21:00 119 H 17 99 03/20/23 21:00 117/83 Laboratory Results 03/21/23 07:09 03/21/23 05:53 Coding Level of Care Code 82315 SUB INP/OBS CARE 3/50MIN Diagnoses UTI (urinary tract infection) N39.0 Prostate mass N42.89 Renal failure N19 Renal failure chronicity: acute Atrial fibrillation I48.91 Shock circulatory R57.9 Hypertension I10 Hypotension I95.9 Hypotension type: unspecified hypotension type (3) Renal failure Renal failure chronicity: acute (7) Hypotension Hypotension type: unspecified hypotension type Qualified Code(s): I95.9 - Hypotension, unspecified
[2023-03-21 08:35] LABS: Magnesium 1.7 mg/dl (1.7-2.4)
[2023-03-21] MEDS: AMIODARONE / D5W 360 MG/200 ML BAG IV SCH ×2 (08:51→19:45)
[2023-03-21] MEDS: POTASSIUM CHLORIDE / WTR 10 MEQ/100 ML PLCT IV SCH ×2 (08:52→09:49)
[2023-03-21] MEDS: METOPROLOL TARTRATE 25 MG TAB PO SCH ×2 (08:52→19:44)
[2023-03-21] MEDS ORDERED: MAGNESIUM SULFATE / D5W 1 GM/100 ML BAG IV ONE (08:59)
[2023-03-21 09:08] LABS: Reticulocyte % 1.1 % (0.5-2.0); Reticulocytes # 0.03 10^6/uL (0.02-0.10)
[2023-03-21] MEDS: PANTOprazole 40 MG TAB PO SCH (09:46)
[2023-03-21 09:47] LABS: Ferritin 959.4 ng/ml (8-388)
--- NOTE | 2023-03-21 11:08 | Urology Progress Note ---
Date of Service March 21, 2023 Assessment & Plan (1) Acute kidney injury: Plan: Renal function continues to improve. Would maintain Link catheter in place until renal function settles out. Hydronephrosis could be related to bladder outlet obstruction, it may be a chronic finding. If renal function does not completely normalize, he may be a candidate for ureteral stent placement. For now continue to monitor and provide supportive care. (2) Obstructive nephropathy: (3) Prostate mass: Plan: We again reviewed the findings on his CT scan regarding the area of the prostate. He is doing well on ceftriaxone and has negative blood and urine cultures at this time. Would be reasonable to try de-escalating antibiotics and seeing if he has worsening infectious symptoms. For now we will try to avoid any unroofing of this area of the prostate, but if he clinically decompensates this is an option. (4) UTI (urinary tract infection): Plan: Most recent urine culture was negative. Will be reasonable to try de-escalating antibiotics. Admission and Anticipated Discharge Date Admission Date: March 17, 2023 Subjective Feeling better this morning, nausea has improved. Denies any fevers or chills. Denies any pain. He has been off pressors since yesterday. Blood cultures from 03/18 negative at 48 hours. Urine from indwelling catheter from 03/19 also negative. Creatinine continues to improve (3.25 today) No leukocytosis (WBC 6.65) Physical Exam Physical Exam: Resting in bed, NAD Respiratory: Breathing comfortably on room air Cardiovascular: Mildly tachycardic, A-fib on telemetry Genitourinary: Link catheter in place draining clear urine Results & Data Vital Signs (Past 12 Hours) Vital Signs Pulse Resp BP Pulse Ox 03/21/23 06:00 110 H 23 99 03/21/23 06:00 112/74 03/21/23 05:00 92 H 14 98 03/21/23 05:00 115/67 03/21/23 04:00 100 H 18 97 03/21/23 04:00 95/63 L 03/21/23 03:00 112 H 23 96 03/21/23 03:00 102/62 03/21/23 02:00 116 H 18 97 03/21/23 02:00 122/74 03/21/23 01:00 116 H 8 L 98 03/21/23 01:00 113/69 03/21/23 00:00 106 H 17 97 03/21/23 00:00 109/68 PG Care Time/CCT Total # of Minutes Spent Total Time Spent with Patient: Total time spent is greater than 50% in coordination of care (as documented) at patient's floor/unit and/or counseling patient: Coding Level of Care Code 18043 SUB INP/OBS CARE 2/35MIN Diagnoses Acute kidney injury N17.9 Obstructive nephropathy N13.8 Prostate mass N42.89 UTI (urinary tract infection) N39.0
[2023-03-21] MEDS: HEPARIN SOD 5,000 UNIT/0.5 ML VIAL SQ SCH ×2 (12:44→17:52)
--- NOTE | 2023-03-21 16:41 | Nephrology Progress Note ---
Date of Service March 21, 2023 Assessment & Plan (1) Acute kidney injury: Plan: Attributed to obstructive nephropathy and dehydration. Clinically improving. Continue IV hydration and encourage PO fluids. Electrolytes acceptable. Medications appropriately dosed for kidney function. Document strict I/O's. Repeat metabolic profile tomorrow AM. Plasmalyte infusion rate reduced to 100 ml/hr. (2) Obstructive nephropathy: Plan: Link to gravity. Clinically improving. CT demonstrating enlarged prostate with ~3 cm lesion. (3) Hydronephrosis: Plan: Link to gravity. Excellent urine output. Kidney function improving. (4) Prostate asymmetry: Plan: Urology following. No plan for intervention at this time. Remains on ceftriaxone. (5) Hypotension: Plan: Continue to encourage fluids. Maintain positive fluid balance. Home antihypertensives have been held. Admission and Anticipated Discharge Date Admission Date: March 17, 2023 Subjective No acute events overnight. No complaints this afternoon. BP acceptable. Appetite improved. I discussed the recent history and plan of care with Dr. Tamayo. Review of Systems Review of Systems: All systems reviewed & are unremarkable except as noted in HPI & below Physical Exam Constitutional: well developed and + thin; no acute distress Eyes: + anicteric sclerae; no corneal abnormality ENMT: Ears: no hearing impairment Mouth: + dry oral mucous membranes Neck: normal visual inspection and trachea midline Respiratory: normal respiratory effort Auscultation: lungs clear to auscultation bilaterally Cardiovascular: Rate/Rhythm: regular rate and + tachycardic Heart Sounds: normal S1 and normal S2 Extremities: + edema Musculoskeletal: Extremities: no cyanosis and no clubbing Skin: normal turgor; no lesions and no jaundice Neurologic: Motor/Sensory: no tremor and no asterixis Psychiatric: Orientation: alert and oriented x 3 Results & Data Vital Signs (Past 12 Hours) Vital Signs Temp Pulse Resp BP Pulse Ox O2 Del Method 03/21/23 15:00 100 H 19 98 03/21/23 15:00 101/69 03/21/23 14:00 92 H 16 99 03/21/23 14:00 107/66 03/21/23 13:00 90 18 97 03/21/23 13:00 90/54 L 03/21/23 16:00 100 H 03/21/23 12:00 102 H 18 99 Room Air 03/21/23 12:00 107/64 03/21/23 08:00 36.8 C 03/21/23 11:00 102 H 16 95 03/21/23 11:00 102/60 03/21/23 10:00 122 H 20 100 03/21/23 10:00 106/66 03/21/23 09:24 115 H 37 H 100 03/21/23 09:24 99/59 L 03/21/23 09:17 108 H 33 H 03/21/23 09:17 97/74 L 03/21/23 09:00 120 H 24 97 03/21/23 08:00 113 H 17 98 03/21/23 08:00 105/62 03/21/23 07:56 113 H 22 99 03/21/23 07:56 107/62 03/21/23 07:00 98 H 19 96 03/21/23 07:00 103/68 03/21/23 06:00 110 H 23 99 03/21/23 06:00 112/74 03/21/23 05:00 92 H 14 98 03/21/23 05:00 115/67 Laboratory Results Laboratory Results - last 24 hr 03/20/23 03/21/23 03/21/23 20:47 05:53 05:53 WBC RBC Hgb Hct MCV MCH MCHC RDW Std Deviation RDW Coeff of Efrain Plt Count MPV Immature Gran % (Auto) Neut % (Auto) Lymph % (Auto) [place] % (Auto) Eos % (Auto) Baso % (Auto) Reticulocyte % (Auto) Neut # (Auto) Lymph # (Auto) [place] # (Auto) Eos # (Auto) Baso # (Auto) Reticulocyte # Immature Gran # (Auto) APTT 27.3 PTT Ratio 1.0 Sodium 142 Potassium 3.6 Chloride 109 H Carbon Dioxide 24 Anion Gap 9 BUN 83 H D Creatinine 3.25 H D Est Cr Clr Drug Dosing 23.1 Est GFR ( Amer) 20.4 Est GFR (Non-Af Amer) 17.6 BUN/Creatinine Ratio 25.5 H Glucose 106 H POC Glucose 119 H Calcium 7.7 L Phosphorus 3.4 D Magnesium 1.7 Iron 47 TIBC 130 L Unsaturated IBC 83 L Transferrin % Sat 36 Ferritin 959.4 H Vitamin B12 Folate 03/21/23 03/21/23 03/21/23 07:09 07:09 09:45 WBC 6.65 RBC 2.96 L Hgb 8.4 L Hct 25.2 L MCV 85.1 MCH 28.4 MCHC 33.3 RDW Std Deviation 45.1 RDW Coeff of Efrain 15.0 H Plt Count 196 MPV 10.0 Immature Gran % (Auto) 0.5 Neut % (Auto) 76.4 Lymph % (Auto) 11.4 [place] % (Auto) 7.7 Eos % (Auto) 3.5 Baso % (Auto) 0.5 Reticulocyte % (Auto) 1.1 Neut # (Auto) 5.09 Lymph # (Auto) 0.76 L [place] # (Auto) 0.51 Eos # (Auto) 0.23 Baso # (Auto) 0.03 Reticulocyte # 0.03 Immature Gran # (Auto) 0.03 APTT PTT Ratio Sodium Potassium Chloride Carbon Dioxide Anion Gap BUN Creatinine Est Cr Clr Drug Dosing Est GFR ( Amer) Est GFR (Non-Af Amer) BUN/Creatinine Ratio Glucose POC Glucose Calcium Phosphorus Magnesium Iron TIBC Unsaturated IBC Transferrin % Sat Ferritin Vitamin B12 910 Folate 7.60 03/21/23 03/21/23 11:31 16:37 WBC RBC Hgb Hct MCV MCH MCHC RDW Std Deviation RDW Coeff of Efrain Plt Count MPV Immature Gran % (Auto) Neut % (Auto) Lymph % (Auto) [place] % (Auto) Eos % (Auto) Baso % (Auto) Reticulocyte % (Auto) Neut # (Auto) Lymph # (Auto) [place] # (Auto) Eos # (Auto) Baso # (Auto) Reticulocyte # Immature Gran # (Auto) APTT PTT Ratio Sodium Potassium Chloride Carbon Dioxide Anion Gap BUN Creatinine Est Cr Clr Drug Dosing Est GFR ( Amer) Est GFR (Non-Af Amer) BUN/Creatinine Ratio Glucose POC Glucose 145 H 95 Calcium Phosphorus Magnesium Iron TIBC Unsaturated IBC Transferrin % Sat Ferritin Vitamin B12 Folate PG Care Time/CCT Total # of Minutes Spent Total Time Spent with Patient: Total time spent is greater than 50% in coordination of care (as documented) at patient's floor/unit and/or counseling patient: Coding Level of Care Code 03653 SUB INP/OBS CARE 3/50MIN Diagnoses Acute kidney injury N17.9 Obstructive nephropathy N13.8 Hydronephrosis N13.30 Prostate asymmetry N42.89 Hypotension I95.9 Hypotension type: unspecified hypotension type (5) Hypotension Hypotension type: unspecified hypotension type Qualified Code(s): I95.9 - Hypotension, unspecified
--- NOTE | 2023-03-21 17:05 | Billing Data ---
Date of Service March 21, 2023 Coding Level of Care Code 53458 SUB INP/OBS CARE
[2023-03-21] MEDS: cefTRIAXone SODIUM 2,000 MG in DEXTROSE 5% 50 ML IV SCH (17:52)
[2023-03-22 06:20] LABS: Basophils # (auto) 0.02 K/uL (0-0.2); Basophils % (auto) 0.3 %; Eosinophils # (auto) 0.19 K/uL (0-0.50); Eosinophils % (auto) 3.2 %; Hematocrit (blood only) 24.1 % (42.0-52.0); Hemoglobin 8.1 g/dl (14.0-18.0); Immature Granulocytes # (auto) 0.03 K/uL (0.01-0.20); Immature Granulocytes % (auto) 0.5 %; Lymphocytes # (auto) 0.84 K/uL (1.2-3.4); Lymphocytes % (auto) 14.2 %; Mean Corpuscular Hemoglobin 28.7 pg (25.0-34.0); Mean Corpuscular Hgb Conc 33.6 g/dL (32.0-36.0); Mean Corpuscular Volume 85.5 fL (80.0-100.0); Mean Platelet Volume 10.2 fL (9.4-12.4); Monocytes # (auto) 0.39 K/uL (0.11-0.59); Monocytes % (auto) 6.6 %; Neutrophils # (auto) 4.43 K/uL (1.40-6.50); Neutrophils % (auto) 75.2 %; Platelet Count 195 K/uL (130-400); RDW Coefficient of Variation 15.1 % (11.5-14.5); RDW Standard Deviation 45.3 fL (36.4-46.3); Red Blood Count 2.82 M/uL (4.70-6.10)
[2023-03-22 06:32] LABS: BUN Creatinine Ratio 19.9 (10-20); Calcium 7.7 mg/dl (8.6-10.3); Creatinine Clr Calc Pharmacy 27.2 ml/min; Est GFR (African American) 24.9 ml/min; Est GFR (Non-African American) 21.5 ml/min; Magnesium 1.6 mg/dl (1.7-2.4); Potassium 3.8 mmol/L (3.5-5.1)
[2023-03-22] MEDS: METOPROLOL TARTRATE 25 MG TAB PO SCH ×2 (08:06→20:20)
[2023-03-22] MEDS: PANTOprazole 40 MG TAB PO SCH (08:06)
[2023-03-22] MEDS: INSULIN ASPART PER UNIT CHARGE SC SCH ×4 (08:07→20:18)
[2023-03-22] MEDS: HEPARIN SOD 5,000 UNIT/0.5 ML VIAL SQ SCH (08:07)
[2023-03-22] MEDS: AMIODARONE / D5W 360 MG/200 ML BAG IV SCH ×2 (08:13→20:20)
[2023-03-22] MEDS: PLASMA-LYTE A 1,000 ML IV SCH ×2 (08:24→17:57)
--- NOTE | 2023-03-22 08:34 | Hospitalist Progress Note ---
Date of Service March 22, 2023 Assessment & Plan (1) Acute kidney injury: Plan: 73yo Male with PMH afib HTN and HLD admitted to [facility] on 03/17 for shock and obstructive renal failure. Shock; JAYY 2/2 Prostatic Mass/Obstruction CT A/P with prostate hypodensity, without overall BPH, and upstream signs of obstruction with hydroureteronephrosis and bladder wall thickening. Multiple etiologies of shock at this time: hypovolemic (2/2 to ?bleed), distributive/septic (2/2 to ?urinary/prostate infection vs renal failure). - creatinine/phosphorus downtrending significantly since Link catheter placed, and it is draining appropriately - Phenylephrine weaned off on 03/20 in AM, maintaining adequate MAP since then. - Zosyn started 03/17, downgraded to CTX on 03/19. -Nephrology consulted for creatinine ~10. Urology consulted for hydronephrosis 2/2 prostatic mass/obstruction. -Now downgraded from ICU on 03/22/2023. * Continue IVF (Plasma-Lyte@75 cc/h). Discontinue once patient tolerating p.o. nutrition adequately. * De-escalating to p.o. antibiotics: P.o. cefdinir 300 mg twice daily until 03/26 (10 days total). Observe for worsening infectious symptoms. * Trend BMP. Replete electrolytes as needed. * Maintain Link until creatinine reaches baseline. * No procedural intervention for prostatic mass. Monitor medically unless clinical decompensation. Atrial fibrillation with Rapid Ventricular Response - requiring Amiodarone gtt and still with RVR (HR 110s-120s) - resumed Metoprolol at lower dose today - 25mg PO BID (home dose is 100mg Toprol XL daily) - patient was not on anti-coagulation prior to admission and anticoagulation was held, given possibility for Urologic procedure. Urology avoiding procedural intervention for now. - consider Cardiology consultation if remains uncontrolled * Initiate anticoagulation with DOAC: Eliquis 2.5 mg twice daily (Cr >1.5) * Metoprolol tartrate 25 mg twice daily as above * Consider cardiology consult for further med rec for uncontrolled HR. Acute Normocytic Anemia Hgb 8.4 today, normocytic, stabilizing over last several days. No previous anemia. CT A/P on 03/19 without evidence for bleed, and no other evidence of acting bleeding. ?2/2 to renal failure, as we do not know chronicity of this (no recent baseline in our system). May be due to bone marrow dysfunction vs iron deficiency as well. -Ferritin elevated at 959.4. Iron, folate, B12 levels normal. * Trend CBC HTN -Chronic; managed at home on lisinopril 20 mg every morning, HCTZ 25 mg daily, amlodipine 10 mg every morning, and metoprolol succinate 100 mg every morning -Held on admission due to sepsis, JAYY. Metoprolol restarted at lower dose for rate control of atrial fibrillation. * Metoprolol tartrate 25 mg twice daily * Otherwise, continue to hold until resolution of JAYY, T2DM -A1c of 6.6 on admission 03/18. New diagnosis. * SSI while hospitalized * Recommend consideration of Metformin on discharge at outpatient PCP follow-up. FEN: heart-healthy/DM2/renal diet; Normosol-R @75cc/hr Code Status: Full, POA daughter Marlon DVT PPX: P.o. apixaban 2.5 mg twice daily PT/OT: recommend SNF Case Management: consulted Dispo: stable for downgrade to PCU (2) Atrial fibrillation: (3) Hyperlipidemia: (4) Hypertension: Admission and Anticipated Discharge Date Admission Date: March 17, 2023 Supervising Physician Co-Signing Physician Notes Attending attestation Pt seen and examined in concert with Dr. Mireles. In agreement with the documented findings as noted in the resident documentation with any exceptions or additions as noted here. Reports ongoing improvement of symptoms and diminished fatigue without lightheadedness, chest pain, palpitations, VICK. On examination, S1/S2 nl RRR no MCG. CTAB. Abd NT/ND BS+ve Acute prostatitis with prostatic mass/obstruction, concerning for sepsis on admission - urology, nephrology consult - transition to PO abx as noted and continue to trend BMP, CBC Atrial fibrillation w/ RVR - ongoing amiodarone with improved rates. Consult cardiology in AM for ongoing variable mild tachycardia on GTT. Acute normocytic anemia - stable hgb at 8.4 Else see resident documentation as noted. Subjective Patient is awake in bed this morning on arrival. He has no acute complaints or concerns. Review of Systems Review of Systems: All systems reviewed & are unremarkable except as noted in HPI & below Physical Exam Physical Exam: General: No acute distress HEENT: PERRLA. Normal conjunctiva, anicteric sclera. Oropharynx normal. Respiratory: Normal respiratory effort, CTABL. Cardiovascular: RRR without murmurs, gallops, or rubs. No pedal edema. GI: Soft abdomen with normal bowel sounds heard on auscultation. Nontender x4 quadrants Neuro: Alert and oriented x3. Results & Data Results & Data Vital Signs (Past 12 Hours) Vital Signs Temp Pulse Pulse Resp BP Pulse Ox O2 Del Method 03/22/23 08:08 36.6 C 111 H 19 105/63 99 Room Air 03/22/23 03:07 36.5 C 103 H 20 121/68 97 Room Air 03/21/23 23:35 95 H 03/21/23 22:49 36.6 C 87 18 110/65 98 Room Air Laboratory Results 03/22/23 03/22/23 03/22/23 Range/Units 11:00 07:14 05:41 WBC (4.8-10.8) K/ul RBC (4.70-6.10) M/uL Hgb (14.0-18.0) g/dl Hct (42.0-52.0) % MCV (80.0-100.0) fL MCH (25.0-34.0) pg MCHC (32.0-36.0) g/dL RDW Std Deviation (36.4-46.3) fL RDW Coeff of Efrain (11.5-14.5) % Plt Count (130-400) K/uL MPV (9.4-12.4) fL Immature Gran % (Auto) % Neut % (Auto) % Lymph % (Auto) % [place] % (Auto) % Eos % (Auto) % Baso % (Auto) % Neut # (Auto) (1.40-6.50) K/uL Lymph # (Auto) (1.2-3.4) K/uL [place] # (Auto) (0.11-0.59) K/uL Eos # (Auto) (0-0.50) K/uL Baso # (Auto) (0-0.2) K/uL Immature Gran # (Auto) (0.01-0.20) K/uL Peripher Smr Path Cons Sodium 141 (136-145) mmol/L Potassium 3.8 (3.5-5.1) mmol/L Chloride 111 H (98-107) mmol/L Carbon Dioxide 22 (21-32) mmol/L Anion Gap 8 (3-11) BUN 55 H D (6-23) mg/dl Creatinine 2.76 H D (0.6-1.4) mg/dl Est Cr Clr Drug Dosing 27.2 ml/min Est GFR ( Amer) 24.9 ml/min Est GFR (Non-Af Amer) 21.5 ml/min BUN/Creatinine Ratio 19.9 (10-20) Glucose 96 (70-99(Fasting)) mg/dl POC Glucose 122 H 105 H (70-99) mg/dl Calcium 7.7 L (8.6-10.3) mg/dl Magnesium 1.6 L (1.7-2.4) mg/dl 03/22/23 03/21/23 03/21/23 Range/Units 05:41 20:16 16:37 WBC 5.90 (4.8-10.8) K/ul RBC 2.82 L (4.70-6.10) M/uL Hgb 8.1 L (14.0-18.0) g/dl Hct 24.1 L (42.0-52.0) % MCV 85.5 (80.0-100.0) fL MCH 28.7 (25.0-34.0) pg MCHC 33.6 (32.0-36.0) g/dL RDW Std Deviation 45.3 (36.4-46.3) fL RDW Coeff of Efrain 15.1 H (11.5-14.5) % Plt Count 195 (130-400) K/uL MPV 10.2 (9.4-12.4) fL Immature Gran % (Auto) 0.5 % Neut % (Auto) 75.2 % Lymph % (Auto) 14.2 % [place] % (Auto) 6.6 % Eos % (Auto) 3.2 % Baso % (Auto) 0.3 % Neut # (Auto) 4.43 (1.40-6.50) K/uL Lymph # (Auto) 0.84 L (1.2-3.4) K/uL [place] # (Auto) 0.39 (0.11-0.59) K/uL Eos # (Auto) 0.19 (0-0.50) K/uL Baso # (Auto) 0.02 (0-0.2) K/uL Immature Gran # (Auto) 0.03 (0.01-0.20) K/uL Peripher Smr Path Cons Sodium (136-145) mmol/L Potassium (3.5-5.1) mmol/L Chloride (98-107) mmol/L Carbon Dioxide (21-32) mmol/L Anion Gap (3-11) BUN (6-23) mg/dl Creatinine (0.6-1.4) mg/dl Est Cr Clr Drug Dosing ml/min Est GFR ( Amer) ml/min Est GFR (Non-Af Amer) ml/min BUN/Creatinine Ratio (10-20) Glucose (70-99(Fasting)) mg/dl POC Glucose 112 H 95 (70-99) mg/dl Calcium (8.6-10.3) mg/dl Magnesium (1.7-2.4) mg/dl 03/20/23 Range/Units 04:28 WBC (4.8-10.8) K/ul RBC (4.70-6.10) M/uL Hgb (14.0-18.0) g/dl Hct (42.0-52.0) % MCV (80.0-100.0) fL MCH (25.0-34.0) pg MCHC (32.0-36.0) g/dL RDW Std Deviation (36.4-46.3) fL RDW Coeff of Efrain (11.5-14.5) % Plt Count (130-400) K/uL MPV (9.4-12.4) fL Immature Gran % (Auto) % Neut % (Auto) % Lymph % (Auto) % [place] % (Auto) % Eos % (Auto) % Baso % (Auto) % Neut # (Auto) (1.40-6.50) K/uL Lymph # (Auto) (1.2-3.4) K/uL [place] # (Auto) (0.11-0.59) K/uL Eos # (Auto) (0-0.50) K/uL Baso # (Auto) (0-0.2) K/uL Immature Gran # (Auto) (0.01-0.20) K/uL Peripher Smr Path Cons Sodium (136-145) mmol/L Potassium (3.5-5.1) mmol/L Chloride (98-107) mmol/L Carbon Dioxide (21-32) mmol/L Anion Gap (3-11) BUN (6-23) mg/dl Creatinine (0.6-1.4) mg/dl Est Cr Clr Drug Dosing ml/min Est GFR ( Amer) ml/min Est GFR (Non-Af Amer) ml/min BUN/Creatinine Ratio (10-20) Glucose (70-99(Fasting)) mg/dl POC Glucose (70-99) mg/dl Calcium (8.6-10.3) mg/dl Magnesium (1.7-2.4) mg/dl Resident Activity Tracking Resident Involvement: Resident Care Provided Care Provided: Adult Hospital Medicine
[2023-03-22] MEDS: MAGNESIUM SULFATE / D5W 1 GM/100 ML BAG IV SCH ×2 (09:31→11:23)
--- NOTE | 2023-03-22 10:19 | Urology Progress Note ---
Date of Service March 22, 2023 Assessment & Plan (1) Acute kidney injury: (2) Obstructive nephropathy: (3) Prostate mass: (4) UTI (urinary tract infection): Plan 73yo/M admitted for hypotension, acute renal failure, and UTI. CT a/p on arrival showed bilateral hydronephrosis, asymmetric bladder wall thickening, and potential prostate mass vs abscess. - Afebrile, normotensive but tachycardic. - No leukocytosis. - Renal function continues to improve. Creatinine 3.25-2.76 today. Continue to monitor. - Urine culture 03/19 negative. Blood cultures no growth x 48 hours. He is on IV ceftriaxone. - Link catheter patent and draining clear yellow urine. - CT abd pelvis on arrival was notable for persistent moderate b/l hydro. Hypodense 3.8 cm lesion of mid prostate noted. - Hydronephrosis could be related to bladder outlet obstruction, it may be a chronic finding. - Would maintain Link catheter until renal function settles out. - He is doing well on ceftriaxone and has negative blood and urine cultures at this time. - Recommend de-escalating to oral antibiotics and seeing if he has worsening infectious symptoms. - For now, we will avoid intervention, but if he clinically decompensates this is an option. - Continue to monitor and provide supportive care. - Urology will follow. Case discussed with Dr. Dumas, on-call urologist. Admission and Anticipated Discharge Date Admission Date: March 17, 2023 Subjective Patient seen and examined at bedside this AM. He is awake and resting in bed. Denies flank, abdominal or suprapubic pain. No acute complaints. Link patent and draining clear yellow urine. No nausea or vomiting. No fever or chills. Review of Systems Constitutional: as per Subjective / HPI Gastrointestinal: as per Subjective / HPI Genitourinary: + as per Subjective / HPI Physical Exam Constitutional: no acute distress Respiratory: no respiratory distress and no labored breathing Cardiovascular: Rate/Rhythm: + tachycardic Gastrointestinal (Abdomen): Percussion/Palpation: abdomen soft; abdomen nontender Musculoskeletal: Head/Neck/Chest: normocephalic Neurologic: awake Psychiatric: Orientation: alert and oriented x 3 Genitourinary: Link patent and draining clear yellow urine Results & Data Vital Signs (Past 12 Hours) Vital Signs Temp Pulse Pulse Resp BP Pulse Ox O2 Del Method 03/22/23 08:08 36.6 C 111 H 19 105/63 99 Room Air 03/22/23 03:07 36.5 C 103 H 20 121/68 97 Room Air 03/21/23 23:35 95 H 03/21/23 22:49 36.6 C 87 18 110/65 98 Room Air PG Care Time/CCT Total # of Minutes Spent Total Time Spent with Patient: Total time spent is greater than 50% in coordination of care (as documented) at patient's floor/unit and/or counseling patient: Coding Level of Care Code 95943 SUB INP/OBS CARE MIN Diagnoses Acute kidney injury N17.9 Obstructive nephropathy N13.8 Prostate mass N42.89 UTI (urinary tract infection) N39.0
--- NOTE | 2023-03-22 10:48 | Nephrology Progress Note ---
Date of Service March 22, 2023 Assessment & Plan (1) Acute kidney injury: Plan: Attributed to obstructive nephropathy and dehydration. Clinically improving. Continue IV hydration and encourage PO fluids. Electrolytes acceptable. Once tolerating adequate PO intake, consider stopping IVF. Medications appropriately dosed for kidney function. Document strict I/O's. Repeat metabolic profile tomorrow AM. (2) Obstructive nephropathy: Plan: Link to gravity. Clinically improving. CT demonstrating enlarged prostate with ~3 cm lesion. (3) Hydronephrosis: Plan: Link to gravity. Excellent urine output. Kidney function improving. Urology following. Admission and Anticipated Discharge Date Admission Date: March 17, 2023 Subjective No acute events overnight. Out of bed to bathroom this AM. No complaints. Link draining clear yellow urine. Appetite is good. No fluid retention or edema. Review of Systems Review of Systems: All systems reviewed & are unremarkable except as noted in HPI & below Physical Exam Constitutional: well developed and + thin; no acute distress Eyes: + anicteric sclerae; no corneal abnormality ENMT: Ears: no hearing impairment Mouth: + dry oral mucous membranes Neck: normal visual inspection and trachea midline Respiratory: normal respiratory effort Auscultation: lungs clear to auscultation bilaterally Cardiovascular: Rate/Rhythm: regular rate and + tachycardic Heart Sounds: normal S1 and normal S2 Extremities: + edema Musculoskeletal: Extremities: no cyanosis and no clubbing Skin: normal turgor; no lesions and no jaundice Neurologic: Motor/Sensory: no tremor and no asterixis Psychiatric: Orientation: alert and oriented x 3 Results & Data Vital Signs (Past 12 Hours) Vital Signs Temp Pulse Pulse Resp BP Pulse Ox O2 Del Method 03/22/23 08:08 36.6 C 111 H 19 105/63 99 Room Air 03/22/23 03:07 36.5 C 103 H 20 121/68 97 Room Air 03/21/23 23:35 95 H 03/21/23 22:49 36.6 C 87 18 110/65 98 Room Air Laboratory Results Laboratory Results - last 24 hr 03/20/23 03/21/23 03/21/23 04:28 09:45 11:31 WBC RBC Hgb Hct MCV MCH MCHC RDW Std Deviation RDW Coeff of Efrain Plt Count MPV Immature Gran % (Auto) Neut % (Auto) Lymph % (Auto) [place] % (Auto) Eos % (Auto) Baso % (Auto) Neut # (Auto) Lymph # (Auto) [place] # (Auto) Eos # (Auto) Baso # (Auto) Immature Gran # (Auto) Peripher Smr Path Cons Sodium Potassium Chloride Carbon Dioxide Anion Gap BUN Creatinine Est Cr Clr Drug Dosing Est GFR ( Amer) Est GFR (Non-Af Amer) BUN/Creatinine Ratio Glucose POC Glucose 145 H Calcium Magnesium Vitamin B12 910 Folate 7.60 03/21/23 03/21/23 03/22/23 16:37 20:16 05:41 WBC 5.90 RBC 2.82 L Hgb 8.1 L Hct 24.1 L MCV 85.5 MCH 28.7 MCHC 33.6 RDW Std Deviation 45.3 RDW Coeff of Efrain 15.1 H Plt Count 195 MPV 10.2 Immature Gran % (Auto) 0.5 Neut % (Auto) 75.2 Lymph % (Auto) 14.2 [place] % (Auto) 6.6 Eos % (Auto) 3.2 Baso % (Auto) 0.3 Neut # (Auto) 4.43 Lymph # (Auto) 0.84 L [place] # (Auto) 0.39 Eos # (Auto) 0.19 Baso # (Auto) 0.02 Immature Gran # (Auto) 0.03 Peripher Smr Path Cons Sodium Potassium Chloride Carbon Dioxide Anion Gap BUN Creatinine Est Cr Clr Drug Dosing Est GFR ( Amer) Est GFR (Non-Af Amer) BUN/Creatinine Ratio Glucose POC Glucose 95 112 H Calcium Magnesium Vitamin B12 Folate 03/22/23 03/22/23 05:41 07:14 WBC RBC Hgb Hct MCV MCH MCHC RDW Std Deviation RDW Coeff of Efrain Plt Count MPV Immature Gran % (Auto) Neut % (Auto) Lymph % (Auto) [place] % (Auto) Eos % (Auto) Baso % (Auto) Neut # (Auto) Lymph # (Auto) [place] # (Auto) Eos # (Auto) Baso # (Auto) Immature Gran # (Auto) Peripher Smr Path Cons Sodium 141 Potassium 3.8 Chloride 111 H Carbon Dioxide 22 Anion Gap 8 BUN 55 H D Creatinine 2.76 H D Est Cr Clr Drug Dosing 27.2 Est GFR ( Amer) 24.9 Est GFR (Non-Af Amer) 21.5 BUN/Creatinine Ratio 19.9 Glucose 96 POC Glucose 105 H Calcium 7.7 L Magnesium 1.6 L Vitamin B12 Folate PG Care Time/CCT Total # of Minutes Spent Total Time Spent with Patient: Total time spent is greater than 50% in coordination of care (as documented) at patient's floor/unit and/or counseling patient: Coding Level of Care Code 05538 SUB INP/OBS CARE 3/50MIN Diagnoses Acute kidney injury N17.9 Obstructive nephropathy N13.8 Hydronephrosis N13.30
[2023-03-22] MEDS: cefTRIAXone SODIUM 2,000 MG in DEXTROSE 5% 50 ML IV SCH (17:34)
[2023-03-23 06:20] LABS: Hematocrit (blood only) 23.4 % (42.0-52.0); Hemoglobin 7.9 g/dl (14.0-18.0); Mean Corpuscular Hemoglobin 28.9 pg (25.0-34.0); Mean Corpuscular Hgb Conc 33.8 g/dL (32.0-36.0); Mean Corpuscular Volume 85.7 fL (80.0-100.0); Mean Platelet Volume 10.1 fL (9.4-12.4); Platelet Count 178 K/uL (130-400); RDW Coefficient of Variation 15.4 % (11.5-14.5); RDW Standard Deviation 45.5 fL (36.4-46.3); Red Blood Count 2.73 M/uL (4.70-6.10); White Blood Count 6.43 K/ul (4.8-10.8)
[2023-03-23 06:41] LABS: BUN Creatinine Ratio 16.7 (10-20); Calcium 7.6 mg/dl (8.6-10.3); Creatinine Clr Calc Pharmacy 30.7 ml/min; Est GFR (African American) 29.6 ml/min; Est GFR (Non-African American) 25.6 ml/min; Magnesium 1.6 mg/dl (1.7-2.4); Potassium 3.4 mmol/L (3.5-5.1)
--- NOTE | 2023-03-23 07:42 | Hospitalist Progress Note ---
Date of Service March 23, 2023 Assessment & Plan (1) Acute kidney injury: Plan: 73yo Male with PMH afib HTN and HLD admitted to [facility] on 03/17 for shock and obstructive renal failure. Shock; JAYY 2/2 Prostatic Mass/Obstruction CT A/P with prostate hypodensity, without overall BPH, and upstream signs of obstruction with hydroureteronephrosis and bladder wall thickening. Multiple etiologies of shock at this time: hypovolemic (2/2 to ?bleed), distributive/septic (2/2 to ?urinary/prostate infection vs renal failure). - creatinine/phosphorus downtrending significantly since Link catheter placed, and it is draining appropriately - Phenylephrine weaned off on 03/20 in AM, maintaining adequate MAP since then. - Zosyn started 03/17, downgraded to CTX on 03/19. -Nephrology consulted for creatinine ~10. Urology consulted for hydronephrosis 2/2 prostatic mass/obstruction. -Now downgraded from ICU on 03/22/2023. * Continue IVF (Plasma-Lyte@75 cc/h). Discontinue once patient tolerating p.o. nutrition adequately. * De-escalating to p.o. antibiotics: P.o. cefdinir 300 mg twice daily until 03/26 (10 days total). Observe for worsening infectious symptoms. * Trend BMP. Replete electrolytes as needed. * Maintain Link until creatinine reaches baseline. * No procedural intervention for prostatic mass. Monitor medically unless clinical decompensation. Atrial fibrillation with Rapid Ventricular Response - requiring Amiodarone gtt and still with RVR (HR 110s-120s). Stopped on 03/23/2023. - resumed Metoprolol at lower dose today - 25mg PO BID (home dose is 100mg Toprol XL daily) - patient was not on anti-coagulation prior to admission and anticoagulation was held, given possibility for Urologic procedure. Urology avoiding procedural intervention for now. -Cardiology consulted: Increased metoprolol 25 mg daily to 50 mg twice daily. * Initiate anticoagulation with DOAC: Eliquis 2.5 mg twice daily (Cr >1.5). Increase to 5 mg twice daily at discharge. * Metoprolol tartrate 50 mg twice daily as above. Acute Normocytic Anemia Hgb 8.4 today, normocytic, stabilizing over last several days. No previous anemia. CT A/P on 03/19 without evidence for bleed, and no other evidence of acting bleeding. ?2/2 to renal failure, as we do not know chronicity of this (no recent baseline in our system). May be due to bone marrow dysfunction vs iron deficiency as well. -Ferritin elevated at 959.4. Iron, folate, B12 levels normal. * Trend CBC HTN -Chronic; managed at home on lisinopril 20 mg every morning, HCTZ 25 mg daily, amlodipine 10 mg every morning, and metoprolol succinate 100 mg every morning -Held on admission due to sepsis, JAYY. Metoprolol restarted at lower dose for rate control of atrial fibrillation. * Metoprolol tartrate 50 mg twice daily * Otherwise, continue to hold other antihypertensives until resolution of JAYY T2DM -A1c of 6.6 on admission 03/18. New diagnosis. * SSI while hospitalized * Recommend consideration of Metformin on discharge at outpatient PCP follow-up. FEN: heart-healthy/DM2/renal diet; Normosol-R @75cc/hr Code Status: Full, POA daughter Marlon DVT PPX: P.o. apixaban 2.5 mg twice daily PT/OT: recommend SNF Case Management: consulted Dispo: stable for downgrade to PCU (2) Atrial fibrillation: (3) Hyperlipidemia: (4) Hypertension: Admission and Anticipated Discharge Date Admission Date: March 17, 2023 Supervising Physician Co-Signing Physician Notes Attending attestation Pt seen and examined in concert with Dr. Mireles. In agreement with the documented findings as noted in the resident documentation with any exceptions or additions as noted here. Diminished fatigue without lightheadedness, chest pain, palpitations, VICK. On examination, S1/S2 nl RRR no MCG. CTAB. Abd NT/ND BS+ve Acute prostatitis with prostatic mass/obstruction, concerning for sepsis on admission - urology, nephrology consult - tolerating PO abx. Continue to trend BMP, CBC Atrial fibrillation, permanent - cardiology consult - transition to metoprolol tartrate 50mg BID and monitor. D/C amiodarone. Acute normocytic anemia - stable hgb at 8.4 Else see resident documentation as noted. Subjective Patient is in bed, awake and alert on arrival. He has no acute concerns or complaints this morning. He wants to know when he will be ready to be discharged. Review of Systems Review of Systems: General: No acute distress HEENT: PERRLA. Normal conjunctiva, anicteric sclera. Oropharynx normal. Respiratory: Normal respiratory effort, CTABL. Cardiovascular: RRR without murmurs, gallops, or rubs. No pedal edema. GI: Soft abdomen with normal bowel sounds heard on auscultation. Nontender x4 quadrants Neuro: Alert and oriented x3. Results & Data Results & Data Vital Signs (Past 12 Hours) Vital Signs Temp Pulse Pulse Resp BP Pulse Ox O2 Del Method 03/23/23 02:56 36.4 C L 102 H 20 103/66 98 Room Air 03/22/23 23:45 97 H 03/22/23 22:35 36.6 C 98 H 20 100/63 96 Room Air Resident Activity Tracking Resident Involvement: Resident Care Provided Care Provided: Adult Hospital Medicine
[2023-03-23] MEDS ORDERED: POTASSIUM PHOS 3 MMOL/1 ML INFUSION IV STA (08:34)
[2023-03-23] MEDS: AMIODARONE / D5W 360 MG/200 ML BAG IV SCH (08:42)
[2023-03-23] MEDS: METOPROLOL TARTRATE 25 MG TAB PO SCH (08:43)
[2023-03-23] MEDS: PANTOprazole 40 MG TAB PO SCH (08:44)
[2023-03-23] MEDS: APIXABAN 2.5 MG TAB PO SCH ×2 (08:44→20:25)
[2023-03-23] MEDS ORDERED: POTASSIUM PHOSPHATE 21 MMOL in SODIUM CHLORIDE 0.9% 500 ML IV ONE (08:45)
[2023-03-23] MEDS: INSULIN ASPART PER UNIT CHARGE SC SCH ×4 (08:53→20:31)
[2023-03-23] MEDS: CEFDINIR 300 MG CAP PO SCH ×2 (10:34→20:25)
[2023-03-23] MEDS: MAGNESIUM SULFATE / D5W 1 GM/100 ML BAG IV SCH ×2 (10:39→12:21)
--- NOTE | 2023-03-23 11:02 | Cardiology Consultation ---
Date of Consultation March 23, 2023 Assessment & Plan (1) Atrial fibrillation: (2) Mitral regurgitation: Plan 1. Atrial fibrillation: Permanent. This is longstanding diagnosis. The patient generally is unaware of any palpitations. Occasionally he will take his pulse and noticed some irregularity. He does not appear to have overt symptoms related to the arrhythmia. Due to his initial requirement for pressor support his home medications were discontinued. He is currently on approximately half his usual dose of beta-blockade. Hemodynamically much improved. I would advocate returned to his usual dose of metoprolol. We can start with 50 mg of tartrate twice daily if this is well tolerated return him to the succinate formulation. The dose can be increased as required to facilitate adequate rate control. Higher rates her likely related to reduced beta-blockade as well as his acute illness. With regard to stroke prophylaxis, the patient has previously been appraised of his risk. He was advised to consider systemic anticoagulation previously. However, he is not interested in the expense associated with the newer agents with a monitoring associated with warfarin. 2. Mitral regurgitation: Mild. This can be monitored over time. History of Present Illness Reason for Consultation: Atrial fibrillation Requesting Physician: Aline Attending Physician: Mirza Issa MD History of Present Illness The patient is a 73-year-old gentleman with a history of permanent atrial fibrillation who was admitted on March 17 after being found at his residence. According to the patient that he had been quite dizzy and weak leading up to his admission. His oral intake had declined significantly and he had not been very ambulatory. At the time of admission he was in acute renal failure and felt to be dehydrated. He was later discovered to have a prostate lesion as well. He was hypotensive and required some pressor support early in his hospitalization. With treatment of infection and hydration his condition improved. He was noted to have elevated heart rates at the time of admission which have persisted despite infusion of amiodarone. Currently the patient claims to be feeling well. He states that he is eating and drinking normally. The dizziness which was problematic leading up to his admission appeared to have resolved. He has not been very active, but has been ambulatory to the bathroom and back. He does not generally have a sense of palpitation. No symptoms of chest pain. He denies breathing difficulty. No history of lower extremity edema. He reports being very sedentary. He generally does not like to leave his residence. He does not perform routine exercise. However, he specifically denied any cardiac symptoms associated with activity. Allergies Allergy/AdvReac Type Severity Reaction Status Date / Time No Known Allergies Allergy Verified 03/17/23 20:42 Home Medications Medication Instructions Recorded Confirmed Type amlodipine 10 mg tablet 10 mg PO QAM 03/17/23 03/17/23 History hydrochlorothiazide 25 mg tablet 25 mg PO QAM 03/17/23 03/17/23 History lisinopril 20 mg tablet 20 mg PO QAM 03/17/23 03/17/23 History metoprolol succinate 100 mg 100 mg PO QAM 03/17/23 03/17/23 History tablet,extended release 24 hr Patient History Medical History Abnormal blood chemistry Abnormal finding on thyroid function test Atrial fibrillation Hyperglycemia Hyperlipidemia Hypertension Male erectile disorder of organic origin Umbilical hernia Surgical History History of appendectomy History of cataract surgery History of tonsillectomy Family History Father Laryngeal cancer Social History Smoking Status: Former smoker Tobacco Type: Smokeless Tobacco (Dip or Chew) Second Hand Exposure: No; Do You Dip or Chew Tobacco: No; Tobacco Cessation Education Requested by Patient: No Hx Alcohol Use: No Hx Substance Use: No Preferred Language: Tamazight Communication Ability: Effective Hogshead Liner Required: No Beliefs That Will Affect Care: None marital status: Single Current Living Situation: Alone Other Information That Helps Us Care for You: No Feels Safe at Home: Yes Safety Concerns: Feels Safe At This Time caffeine: No Dental Care, Regularly: No Physical Activity Frequency: Does not Exercise Seatbelt Use: never Sunscreen Use: Yes (Protective clothing ) Assistive Devices: Cane Review of Systems Review of Systems: Per HPI Physical Exam Physical Exam: The patient is alert and oriented. Mood and affect appeared normal. He answered all questions appropriately. HEENT: Pupils are equal and reactive to light and accommodation. Extraocular movements are intact. The sclerae are anicteric. Neuro: Cranial nerves intact Neck: Patient's neck is supple. Lungs: Clear to auscultation bilaterally. He has good air movement without use of accessory muscles. No rales wheezes or rhonchi. Cardiac: Heart demonstrates an irregular rate and rhythm. Normal S1 and S2. Holosystolic murmur of variable intensity. Pulses: The patient has palpable radial pulses bilaterally that are equal in intensity Extremities: There was no evidence of hypoperfusion. There is no cyanosis or clubbing. There is no edema. Skin: I did not appreciate any rashes on examination today. Results & Data Vital Signs (Past 12 Hours) Vital Signs Temp Pulse Pulse Resp BP Pulse Ox O2 Del Method 03/23/23 07:45 37.1 C 73 20 106/68 97 Room Air 03/23/23 02:56 36.4 C L 102 H 20 103/66 98 Room Air 03/22/23 23:45 97 H Laboratory Results Abnormal Lab Results 03/22/23 03/22/23 03/22/23 11:00 16:02 20:11 WBC RBC Hgb Hct MCV MCH MCHC RDW Std Deviation RDW Coeff of Efrain Plt Count MPV Sodium Potassium Chloride Carbon Dioxide Anion Gap BUN Creatinine Est Cr Clr Drug Dosing Est GFR ( Amer) Est GFR (Non-Af Amer) BUN/Creatinine Ratio Glucose POC Glucose 122 H 137 H 94 Calcium Phosphorus Magnesium 03/23/23 03/23/23 03/23/23 05:48 05:48 07:10 WBC 6.43 RBC 2.73 L Hgb 7.9 L Hct 23.4 L MCV 85.7 MCH 28.9 MCHC 33.8 RDW Std Deviation 45.5 RDW Coeff of Efrain 15.4 H Plt Count 178 MPV 10.1 Sodium 137 Potassium 3.4 L Chloride 108 H Carbon Dioxide 22 Anion Gap 7 BUN 40 H Creatinine 2.39 H D Est Cr Clr Drug Dosing 30.7 Est GFR ( Amer) 29.6 Est GFR (Non-Af Amer) 25.6 BUN/Creatinine Ratio 16.7 Glucose 117 H POC Glucose 108 H Calcium 7.6 L Phosphorus 2.0 L D Magnesium 1.6 L Diagnostic Findings Echocardiogram performed 03/18/2023: Normal LV systolic function with ejection fraction of 60 65%. Mild LVH. Mild mitral regurgitation. PG Care Time/CCT Total # of Minutes Spent Total Time Spent with Patient: Total time spent is greater than 50% in coordination of care (as documented) at patient's floor/unit and/or counseling patient: Coding Level of Care Code 74150 INT INP/OBS CARE MIN Diagnoses Atrial fibrillation I48.91 Mitral regurgitation I34.0
--- NOTE | 2023-03-23 13:51 | Urology Progress Note ---
Date of Service March 23, 2023 Assessment & Plan (1) UTI (urinary tract infection): (2) Prostate mass: Plan 73yo/M admitted for hypotension, acute renal failure, and UTI. CT a/p on arrival showed bilateral hydronephrosis, asymmetric bladder wall thickening, and potential prostate mass vs abscess. - Remains afebrile and hemodynamically stable. - Labs show no leukocytosis, hemoglobin 7.9. - Renal function continues to improve. Creatinine down from 3.25-2.76-2.39 today. Continue to monitor. - Urine and blood culture 03/19 negative. - Link catheter draining clear yellow urine. - Hydronephrosis could be related to bladder outlet obstruction, it may be a chronic finding. - Would maintain Link catheter until renal function reaches baseline. - Antibiotics de-escalated from IV ceftriaxone to PO cefdinir today. - Continue to monitor closely for worsening infectious symptoms. - For now, we will avoid intervention. Monitor medically unless he clinically decompensates. - Continue supportive care and antibiotics. - Urology will follow. Admission and Anticipated Discharge Date Admission Date: March 17, 2023 Subjective Patient seen and examined at bedside this afternoon. Sitting in bedside chair eating lunch on arrival. Denies flank, abdominal or suprapubic pain. No acute complaints. Link patent and draining clear yellow urine. No nausea or vomiting. No fever or chills. Review of Systems Constitutional: as per Subjective / HPI Gastrointestinal: as per Subjective / HPI Genitourinary: + as per Subjective / HPI Physical Exam Constitutional: no acute distress Respiratory: no respiratory distress and no labored breathing Musculoskeletal: Head/Neck/Chest: normocephalic Neurologic: awake Psychiatric: Orientation: alert and oriented x 3 Genitourinary: Link intact, draining clear yellow urine Results & Data Vital Signs (Past 12 Hours) Vital Signs Temp Pulse Resp BP Pulse Ox O2 Del Method 03/23/23 12:09 37.0 C 93 H 20 98/65 L 99 Room Air 03/23/23 07:45 37.1 C 73 20 106/68 97 Room Air 03/23/23 02:56 36.4 C L 102 H 20 103/66 98 Room Air PG Care Time/CCT Total # of Minutes Spent Total Time Spent with Patient: Total time spent is greater than 50% in coordination of care (as documented) at patient's floor/unit and/or counseling patient: Coding Level of Care Code 57309 SUB INP/OBS CARE MIN Diagnoses UTI (urinary tract infection) N39.0 Prostate mass N42.89
--- NOTE | 2023-03-23 16:03 | Nephrology Progress Note ---
Date of Service March 23, 2023 Assessment & Plan (1) Acute kidney injury: Plan: Attributed to obstructive nephropathy and dehydration. Creatinine continues to improve. IVF discontinued. Continue electrolyte replacement and encourage nutrition. Monitor metabolic profile daily while inpatient. Medications appropriately dosed for kidney function. No additional recommendations at this time. Nephrology will sign-off. Please call with questions or concerns. (2) Obstructive nephropathy: Plan: Link to gravity. Urology follow up. (3) Hydronephrosis: Admission and Anticipated Discharge Date Admission Date: March 17, 2023 Subjective No acute events overnight. No complaint today. Link intake. Appetite good. No fluid retention or edema. Review of Systems Review of Systems: All systems reviewed & are unremarkable except as noted in HPI & below Physical Exam Constitutional: well developed; no acute distress Eyes: + anicteric sclerae; no corneal abnormality ENMT: Mouth: no oral mucosal abnormality and oral mucous membranes not dry Neck: normal visual inspection and trachea midline Respiratory: normal respiratory effort Auscultation: lungs clear to auscultation bilaterally Cardiovascular: Rate/Rhythm: regular rate Heart Sounds: normal S1 and normal S2 Musculoskeletal: Extremities: no cyanosis and no clubbing Skin: normal turgor; no lesions and no jaundice Neurologic: Motor/Sensory: no tremor and no asterixis Psychiatric: Orientation: alert and oriented x 3 Results & Data Vital Signs (Past 12 Hours) Vital Signs Temp Pulse Pulse Resp BP Pulse Ox O2 Del Method 03/23/23 15:59 36.6 C 96 H 18 106/67 97 Room Air 03/23/23 07:00 88 03/23/23 12:09 37.0 C 93 H 20 98/65 L 99 Room Air 03/23/23 07:45 37.1 C 73 20 106/68 97 Room Air Laboratory Results Laboratory Results - last 24 hr 03/22/23 03/22/23 03/23/23 16:02 20:11 05:48 WBC 6.43 RBC 2.73 L Hgb 7.9 L Hct 23.4 L MCV 85.7 MCH 28.9 MCHC 33.8 RDW Std Deviation 45.5 RDW Coeff of Efrain 15.4 H Plt Count 178 MPV 10.1 Sodium Potassium Chloride Carbon Dioxide Anion Gap BUN Creatinine Est Cr Clr Drug Dosing Est GFR ( Amer) Est GFR (Non-Af Amer) BUN/Creatinine Ratio Glucose POC Glucose 137 H 94 Calcium Phosphorus Magnesium 03/23/23 03/23/23 03/23/23 05:48 07:10 11:51 WBC RBC Hgb Hct MCV MCH MCHC RDW Std Deviation RDW Coeff of Efrain Plt Count MPV Sodium 137 Potassium 3.4 L Chloride 108 H Carbon Dioxide 22 Anion Gap 7 BUN 40 H Creatinine 2.39 H D Est Cr Clr Drug Dosing 30.7 Est GFR ( Amer) 29.6 Est GFR (Non-Af Amer) 25.6 BUN/Creatinine Ratio 16.7 Glucose 117 H POC Glucose 108 H 102 H Calcium 7.6 L Phosphorus 2.0 L D Magnesium 1.6 L PG Care Time/CCT Total # of Minutes Spent Total Time Spent with Patient: Total time spent is greater than 50% in coordination of care (as documented) at patient's floor/unit and/or counseling patient: Coding Level of Care Code 51142 SUB INP/OBS CARE 3/50MIN Diagnoses Acute kidney injury N17.9 Obstructive nephropathy N13.8 Hydronephrosis N13.30
[2023-03-23] MEDS: METOPROLOL TARTRATE 50 MG TAB PO SCH (20:25)
[2023-03-24 06:54] LABS: Hematocrit (blood only) 23.8 % (42.0-52.0); Hemoglobin 7.9 g/dl (14.0-18.0); Mean Corpuscular Hemoglobin 28.6 pg (25.0-34.0); Mean Corpuscular Hgb Conc 33.2 g/dL (32.0-36.0); Mean Corpuscular Volume 86.2 fL (80.0-100.0); Mean Platelet Volume 9.9 fL (9.4-12.4); Platelet Count 178 K/uL (130-400); RDW Coefficient of Variation 15.7 % (11.5-14.5); RDW Standard Deviation 47.1 fL (36.4-46.3); Red Blood Count 2.76 M/uL (4.70-6.10); White Blood Count 7.45 K/ul (4.8-10.8)
[2023-03-24 07:04] LABS: BUN Creatinine Ratio 14.4 (10-20); Calcium 7.9 mg/dl (8.6-10.3); Creatinine Clr Calc Pharmacy 31.3 ml/min; Est GFR (African American) 30.1 ml/min; Magnesium 1.6 mg/dl (1.7-2.4); Phosphorus 2.2 mg/dl (2.5-4.9); Potassium 3.6 mmol/L (3.5-5.1)
[2023-03-24] MEDS: INSULIN ASPART PER UNIT CHARGE SC SCH ×2 (08:58→12:38)
[2023-03-24] MEDS: APIXABAN 2.5 MG TAB PO SCH (09:28)
[2023-03-24] MEDS: METOPROLOL TARTRATE 50 MG TAB PO SCH (09:28)
[2023-03-24] MEDS: CEFDINIR 300 MG CAP PO SCH (09:28)
[2023-03-24] MEDS: PANTOprazole 40 MG TAB PO SCH (09:28)
--- NOTE | 2023-03-24 10:39 | Cardiology Progress Note ---
Date of Service March 24, 2023 Assessment & Plan (1) Atrial fibrillation: (2) Mitral regurgitation: Plan 1. Atrial fibrillation: Permanent. No overt symptoms. Rate control is still suboptimal. We will see how he does with a couple of more doses of metoprolol tartrate. We can certainly increase this to a higher dose if necessary. At the time of discharge converting to metoprolol succinate would be reasonable. I did discuss anticoagulation with the patient again today. He seems more interested. I recommended it. Any of the agents would be reasonable at the time of discharge. This would include Xarelto, apixaban or warfarin. Currently on Eliquis 2. Mitral regurgitation: Mild. Admission and Anticipated Discharge Date Admission Date: March 17, 2023 Subjective This morning patient claimed he feeling well. He apparently has done some ambulation on his own around the rollins. He did not report significant breathing difficulty or dizziness. No significant weakness in the legs. No sense of palpitation currently. Review of Systems Review of Systems: Per HPI Physical Exam Physical Exam: The patient is alert and oriented. Mood and affect appeared normal. He answered all questions appropriately. HEENT: Pupils are equal and reactive to light and accommodation. Extraocular movements are intact. The sclerae are anicteric. Neuro: Cranial nerves intact Lungs: Clear to auscultation bilaterally. He has good air movement without use of accessory muscles. No rales wheezes or rhonchi. Cardiac: Heart demonstrates an irregular rate and rhythm. Normal S1 and S2. Soft holosystolic murmur. Pulses: The patient has palpable radial pulses bilaterally that are equal in intensity Extremities: There was no evidence of hypoperfusion. There is no cyanosis or clubbing. There is no edema. Skin: I did not appreciate any rashes on examination today. Results & Data Vital Signs (Past 12 Hours) Vital Signs Temp Pulse Resp BP Pulse Ox O2 Del Method 03/24/23 07:08 37.3 C 109 H 17 111/69 100 Room Air 03/24/23 03:50 36.8 C 78 18 105/68 95 Room Air 03/23/23 23:48 36.8 C 100 H 18 104/63 98 Room Air Laboratory Results Abnormal Lab Results 03/23/23 03/23/23 03/23/23 11:51 16:49 20:29 WBC RBC Hgb Hct MCV MCH MCHC RDW Std Deviation RDW Coeff of Efrain Plt Count MPV Sodium Potassium Chloride Carbon Dioxide Anion Gap BUN Creatinine Est Cr Clr Drug Dosing Est GFR ( Amer) Est GFR (Non-Af Amer) BUN/Creatinine Ratio Glucose POC Glucose 102 H 118 H 103 H Calcium Phosphorus Magnesium 03/24/23 03/24/23 03/24/23 05:57 05:57 08:00 WBC 7.45 RBC 2.76 L Hgb 7.9 L Hct 23.8 L MCV 86.2 MCH 28.6 MCHC 33.2 RDW Std Deviation 47.1 H RDW Coeff of Efrain 15.7 H Plt Count 178 MPV 9.9 Sodium 138 Potassium 3.6 Chloride 109 H Carbon Dioxide 22 Anion Gap 7 BUN 34 H Creatinine 2.36 H Est Cr Clr Drug Dosing 31.3 Est GFR ( Amer) 30.1 Est GFR (Non-Af Amer) 26.0 BUN/Creatinine Ratio 14.4 Glucose 92 POC Glucose 120 H Calcium 7.9 L Phosphorus 2.2 L Magnesium 1.6 L PG Care Time/CCT Total # of Minutes Spent Total Time Spent with Patient: Total time spent is greater than 50% in coordination of care (as documented) at patient's floor/unit and/or counseling patient: Coding Level of Care Code 06804 SUB INP/OBS CARE 2/35MIN Diagnoses Atrial fibrillation I48.91 Mitral regurgitation I34.0
--- NOTE | 2023-03-24 11:28 | Urology Progress Note ---
Date of Service March 24, 2023 Assessment & Plan (1) UTI (urinary tract infection): (2) Prostate mass: Plan 73yo/M admitted for hypotension, acute renal failure, and UTI. CT a/p on arrival showed bilateral hydronephrosis, asymmetric bladder wall thickening, and potential prostate mass vs abscess. - Remains afebrile and hemodynamically stable. - Labs show no leukocytosis, hemoglobin 7.9. - Renal function continues to improve. Creatinine downtrending, 2.36 today. Continue to monitor. - Urine and blood culture 03/19 negative. - Link catheter draining clear yellow urine. - Hydronephrosis could be related to bladder outlet obstruction, it may be a chronic finding. - Would maintain Link catheter for now. We can arrange a voiding trial as an outpatient. - Antibiotics de-escalated from IV ceftriaxone to PO cefdinir 03/23. - Continue to monitor closely for worsening infectious symptoms. - Continue supportive care and antibiotics. - Will arrange outpatient follow-up with our service for follow-up and voiding trial. - Urology will follow peripherally. Please contact us any further questions, concerns, or changes in patient status. Admission and Anticipated Discharge Date Admission Date: March 17, 2023 Subjective Patient seen and examined at bedside this AM. Awake, sitting up in bed on arrival. No acute complaints. Link patent and draining clear yellow urine. No nausea or vomiting. No fever or chills. Ambulating without issue. Review of Systems Constitutional: as per Subjective / HPI Gastrointestinal: as per Subjective / HPI Genitourinary: + as per Subjective / HPI Physical Exam Constitutional: no acute distress Respiratory: no respiratory distress and no labored breathing Neurologic: awake Psychiatric: Orientation: alert and oriented x 3 Genitourinary: Link intact, draining clear yellow urine Results & Data Vital Signs (Past 12 Hours) Vital Signs Temp Pulse Resp BP Pulse Ox O2 Del Method 03/24/23 08:00 Room Air 03/24/23 07:08 37.3 C 109 H 17 111/69 100 Room Air 03/24/23 03:50 36.8 C 78 18 105/68 95 Room Air 03/23/23 23:48 36.8 C 100 H 18 104/63 98 Room Air PG Care Time/CCT Total # of Minutes Spent Total Time Spent with Patient: Total time spent is greater than 50% in coordination of care (as documented) at patient's floor/unit and/or counseling patient: Coding Level of Care Code 85983 SUB INP/OBS CARE 2MIN Diagnoses UTI (urinary tract infection) N39.0 Prostate mass N42.89
--- NOTE | 2023-03-24 14:29 | Discharge Summary ---
Date of Service March 24, 2023 Admission HPI Per Admitting Provider 73yo Male with PMH afib HTN and HLD here for fall illness found to have renal failure. Per EMS patient was with his friend in a mobile home, when they arrived patient was found in his own feces, has not been eating drinking taking his medications regularly. Patient states he has been feeling sick for the past 3-4 weeks, describes weakness lethargy dizziness occasional nausea, may have fallen and hit his head this past wednesday. He denies SOB or fever. He understands he is on medication for HTN, states he takes them when he feels like it. Family reports he has not been eating or drinking regularly recently. Patient states he last peed this afternoon, usually does not have difficulty with urination but has difficulty reaching the bathroom on time. He does not know when he last saw his PCP. Family updated at bedside. MIC is daughter Marlon Admission Exam Per Admitting Provider Constitutional: + disheveled and cooperative Eyes: PERRL, conjunctivae normal, anicteric sclerae ENMT: Mouth: + dry oral mucous membranes Neck: trachea midline, no thyromegaly Respiratory: normal respiratory effort, lungs clear to auscultation Cardiovascular: Rate/Rhythm: + irregularly irregular Extremities: no edema Gastrointestinal (Abdomen): Inspection/Auscultation: + visible herniation (umbilical) Percussion/Palpation: abdomen soft; abdomen nontender Genitourinary: card present Principal Diagnosis JAYY + sepsis Discharge Exam General: No acute distress HEENT: PERRLA. Normal conjunctiva, anicteric sclera. Oropharynx normal. Respiratory: Normal respiratory effort, CTABL. Cardiovascular: RRR without murmurs, gallops, or rubs. No pedal edema. GI: Soft abdomen with normal bowel sounds heard on auscultation. Nontender x4 quadrants : Voiding into Card catheter. No blood or other serosanguineous discoloration observed. Neuro: Alert and oriented x3. Discharge Data Allergies Allergy/AdvReac Type Severity Reaction Status Date / Time No Known Allergies Allergy Verified 03/17/23 20:42 Consultations 03/17/23 20:58 ED Decision to Admit Stat 03/17/23 22:56 Consult Urology Routine 03/18/23 00:46 Consult Tube Maker Routine 03/18/23 01:59 Consult Nephrology Routine 03/23/23 07:41 Consult Cardiology Routine Ordered Studies 03/17/23 19:24 CT cervical spine wo con Stat CT head/brain wo con Stat 03/17/23 21:03 CT abd pelvis wo con Stat 03/19/23 10:38 CT abd pelvis wo con Stat Hospital Course (1) Acute kidney injury: 73yo Male with PMH A-fib HTN and HLD admitted to [facility] on 03/17 for shock and obstructive renal failure. Shock; JAYY 2/2 Prostatic Mass/Obstruction CT A/P with prostate hypodensity, without overall BPH, and upstream signs of obstruction with hydroureteronephrosis and bladder wall thickening. Multiple etiologies of shock at this time: hypovolemic (2/2 to ?bleed), distributive/septic (2/2 to ?urinary/prostate infection vs renal failure). - creatinine/phosphorus downtrending significantly since Card catheter placed, and it is draining appropriately - Phenylephrine weaned off on 03/20 in AM, maintaining adequate MAP since then. - Zosyn started 03/17, downgraded to CTX on 03/19. -Nephrology consulted for creatinine ~10. Urology consulted for hydronephrosis 2/2 prostatic mass/obstruction. -Now downgraded from ICU on 03/22/2023. * Continue IVF (Plasma-Lyte@75 cc/h). Discontinue once patient tolerating p.o. nutrition adequately. * De-escalating to p.o. antibiotics: P.o. cefdinir 300 mg twice daily until 03/26 (10 days total). Observe for worsening infectious symptoms. * Trend BMP. Replete electrolytes as needed. * Maintain Card until creatinine reaches baseline. * No procedural intervention for prostatic mass. Monitor medically unless clinical decompensation. * Urology: Recommend discharge to [facility] with Card catheter in place. Will remove, attempt trial of voiding at outpatient urology follow-up. Atrial fibrillation with Rapid Ventricular Response - requiring Amiodarone gtt and still with RVR (HR 110s-120s). Stopped on 03/23/2023. - resumed Metoprolol at lower dose today - 25mg PO BID (home dose is 100mg Toprol XL daily) - patient was not on anti-coagulation prior to admission and anticoagulation was held, given possibility for Urologic procedure. Urology avoiding procedural intervention for now. -Cardiology consulted: Increased metoprolol 25 mg daily to 50 mg twice daily. * Initiate anticoagulation with DOAC: Eliquis 2.5 mg twice daily (Cr >1.5). Increase to 5 mg twice daily at discharge. * Metoprolol tartrate 50 mg twice daily as above. * Discharged to [facility] on metoprolol tartrate 50 mg twice daily. Discussed with cardiology, recommend outpatient follow-up for confirmation of rate control. Acute Normocytic Anemia Hgb 8.4 today, normocytic, stabilizing over last several days. No previous anemia. CT A/P on 03/19 without evidence for bleed, and no other evidence of acting bleeding. ?2/2 to renal failure, as we do not know chronicity of this (no recent baseline in our system). May be due to bone marrow dysfunction vs iron deficiency as well. -Ferritin elevated at 959.4. Iron, folate, B12 levels normal. * Trend CBC HTN -Chronic; managed at home on lisinopril 20 mg every morning, HCTZ 25 mg daily, amlodipine 10 mg every morning, and metoprolol succinate 100 mg every morning -Held on admission due to sepsis, JAYY. Metoprolol restarted at lower dose for rate control of atrial fibrillation. * Metoprolol tartrate 50 mg twice daily * Otherwise, continue to hold other antihypertensive medications until resolution of JAYY, normalization of BPs T2DM -A1c of 6.6 on admission 03/18. New diagnosis. * SSI while hospitalized * Recommend consideration of Metformin on discharge at outpatient PCP follow-up. (2) Atrial fibrillation: (3) Hyperlipidemia: (4) Hypertension: Total Time Total Time Spent Total Time Spent (In Minutes): Please see attending attestation. Discharge Plan Discharge Items Patient Disposition: Transfer Inpatient Rehab Fac Reason For Visit: UTI RENAL FAILURE Discharge Diagnosis: JAYY + sepsis Activity: Per Instructions section Non-emergency contact: Primary Care Provider Call non-emergency contact if: you have any medication questions and your symptoms worsen Follow-up/Referrals: Harish Mantilla MD [Primary Care Provider] - Harish Ortiz MD [Physician] - Fritz Lofton MD [Physician] - [facility] [Non-Staff] - Diet: Regular Addtl Attending Provider Instructions: 73yo Male with PMH afib HTN and HLD admitted to [facility] on 03/17 for shock and obstructive renal failure 2/2 obstructing prostatic mass. Shock; JAYY 2/2 Prostatic Mass/Obstruction CT A/P with prostate hypodensity, without overall BPH, and upstream signs of obstruction with hydroureteronephrosis and bladder wall thickening. Multiple etiologies of shock at this time: hypovolemic (2/2 to ?bleed), distributive/septic (2/2 to ?urinary/prostate infection vs renal failure). - creatinine/phosphorus downtrending significantly since Card catheter placed, and it is draining appropriately - Phenylephrine weaned off on 03/20 in AM, maintaining adequate MAP since then. - Zosyn started 03/17, downgraded to CTX on 03/19. -Nephrology consulted for creatinine ~10. Urology consulted for hydronephrosis 2/2 prostatic mass/obstruction. -Now downgraded from ICU on 03/22/2023. * IVF (Plasma-Lyte@75 cc/h). Discontinued 03/22 once patient tolerating p.o. nutrition adequately. * De-escalating to p.o. antibiotics: P.o. cefdinir 300 mg twice daily until 03/26 (10 days total). Observe for worsening infectious symptoms. * Trend BMP. Replete electrolytes as needed. * Maintain Card until creatinine reaches baseline. * No procedural intervention for prostatic mass. Monitor medically unless clinical decompensation. * Maintain Card catheter through rehab stay. Urology will attempt trial of void at outpatient follow-up. Atrial fibrillation with Rapid Ventricular Response - requiring Amiodarone gtt and still with RVR (HR 110s-120s). Stopped on 03/23/2023. - resumed Metoprolol at lower dose today - 25mg PO BID (home dose is 100mg Toprol XL daily) - patient was not on anti-coagulation prior to admission and anticoagulation was held, given possibility for Urologic procedure. Urology avoiding procedural intervention for now. -Cardiology consulted: Increased metoprolol 25 mg daily to 50 mg twice daily. * Initiate anticoagulation with DOAC: Eliquis 2.5 mg twice daily (Cr >1.5). Increase to 5 mg twice daily at discharge. * Metoprolol tartrate 50 mg twice daily as above. * Outpatient f/u to ensure rate control in outpatient setting. Acute Normocytic Anemia Hgb 8.4 today, normocytic, stabilizing over last several days. No previous anemia. CT A/P on 03/19 without evidence for bleed, and no other evidence of acting bleeding. ?2/2 to renal failure, as we do not know chronicity of this (no recent baseline in our system). May be due to bone marrow dysfunction vs iron deficiency as well. -Ferritin elevated at 959.4. Iron, folate, B12 levels normal. * Trended CBC. Stable throughout. HTN -Chronic; managed at home on lisinopril 20 mg every morning, HCTZ 25 mg daily, amlodipine 10 mg every morning, and metoprolol succinate 100 mg every morning -Held on admission due to sepsis, JAYY. Metoprolol restarted at lower dose for rate control of atrial fibrillation. * Metoprolol tartrate 50 mg twice daily * Otherwise, continue to hold other antihypertensives until resolution of JAYY * Continue holding antihypertensives until BPs improve. T2DM -A1c of 6.6 on admission 03/18. New diagnosis. * SSI coverage during stay. * Recommend consideration of Metformin on discharge at outpatient PCP follow-up. Pending Studies at Discharge: No Stand-Alone Forms: [facility] Skilled Items Patient informed of condition?: Yes DNR: No Discharge Level of Care: Acute rehab Communicable Disease: No Discharge Prognosis: Improving Lines: None Urinary Catheter: Yes Medications and DC Order Prescriptions: New cefdinir 300 mg Capsule 300 mg PO BID 2 Days Qty: 4 0RF Eliquis 5 mg tablet 5 mg PO BID 30 Days Qty: 60 0RF pantoprazole 40 mg Tablet,Delayed Release (Dr/Ec) 40 mg PO QAM 30 Days Qty: 30 0RF metoprolol tartrate 50 mg Tablet 50 mg PO BID 30 Days Qty: 60 0RF Held lisinopril 20 mg tablet 20 mg PO QAM Hold Instructions: Hold until BP normalizes. amlodipine 10 mg tablet 10 mg PO QAM Hold Instructions: Hold until BP normalizes. hydrochlorothiazide 25 mg tablet 25 mg PO QAM Hold Instructions: Hold until BP normalizes. Discontinued metoprolol succinate 100 mg tablet extended release 24 hr 100 mg PO QAM Discharge Orders: Discharge Order (Routine); Ordered 03/24/23 Ordered By: Alfredo Ortez/Other Patient Handouts: A1C, 5 Steps for Eating Healthier Admission Data Admit Date/Time: 03/17/23 22:18 Attending Provider: Mirza Issa Admit Provider: Shannan Quiros Primary Care Provider: Harish Mantilla Other Providers: Erick Gaffney ; Fritz Lofton ; Jose Alfredo Baez ; Jodee Renae ; [facility] ; Joshua Leon ; Mohsen Easton ; Domo Buenrostro ; Qasim Lorenzana ; Jensen Holder ; Ghulam Robles Jr ; Harjeet Little ; Mojgan Llanes ; Tammi Mendoza ; Mirza Gracia ; Harish Ortiz ; Lennox Vines ; Brissa Smith ; Baylee Castillo ; Sidney Alvarez ; Mickey Chavez ; Qasim Myles V. Other Interventions: Discharge Summary Assessment (RN) Last Done: 03/24/23 14:13 Supervising Physician Co-Signing Physician Notes Attending attestation Pt seen and examined in concert with Dr. Mireles. In agreement with the documented findings as noted in the resident documentation with any exceptions or additions as noted here. resting comfortably in bed without acute complaint. Has not had any positional lightheadedness since resuming metoprolol. On examination, S1/S2 nl RRR no MCG. CTAB. Abd NT/ND BS+ve AF w/ RVR s/p amiodarone drip - cardiology consult - tolerating metoprolol 50mg BID as noted with improvement, rates in the low 100s/high 90s. Likely to continue to improve. Follow with cardiology. Eliquis as noted. JAYY in the setting of prostatitis with concern for sepsis on admission - Cr downtrended to 2.6. Follow up with urology as outpatient and attempt TOV at follow up. Would repeat BMP 2-3 days post discharge. Else see resident documentation as noted. Total attending physician time spent with this patient's care on the day of discharge: 35 minutes. Resident Activity Tracking Resident Involvement: Resident Care Provided Care Provided: Adult Hospital Medicine
== END 2023-03-24 14:56 | DRG 871 ==
LOC: ED 19:11 → SUATTDRO 22:18 → 1E 22:18 → 4W 03-21 17:05

== ENCOUNTER 2023-09-14 15:04 | Inpatient (IN) ==
--- NOTE | 2023-09-14 15:25 | ED Triage Note ---
Date of Service September 14, 2023 History of Present Illness This patient was briefly evaluated while in triage. An abbreviated physical exam was performed. This patient is a 73-year-old Male who presents to the ED for evaluation of lower leg edema. Notes is self cathing. Went to doctor today because of leg edema. R>L. Notes was taken off of Eliquis for medical procedure and did not resume eliquis as he notes he was not told to resume. He notes 30lb weight gain. Physical Exam GENERAL: 73 year old male. In no acute distress. SKIN: No lesions or rashes. HEART: Regular rate and rhythm. LUNGS: Clear to auscultation. ABDOMEN: Bowel sounds normoactive. No guarding or rigidity. No tenderness of palpation. NEURO: Alert and oriented. No deficits. MUSCULOSKELETAL: Lower ext edema noted R>L. PSYCH: Patient is pleasant and answers all questions appropriately. Initial orders for labs and / or imaging were placed and patient was placed in the waiting area until a bed is available. Please see further documentation for the full ED course.
--- NOTE | 2023-09-14 16:24 | XRay Report ---
SINGLE VIEW CHEST CLINICAL HISTORY: Weight gain. Lower extremity edema FINDINGS: A PA chest radiograph is compared to study dated 03/17/2023. The heart is enlarged noting at herosclerotic calcification of the thoracic ureter. There is mild pulmonary vascular congestion. Ther e are right larger than left pleural effusions with dependent atelectasis. No pneumothorax is seen. T he skeletal structures are osteopenic. The bony thorax is grossly intact. IMPRESSION: 1. Cardiomegaly with mild pulmonary vascular congestion. 2. Right larger than left pleural effusions with dependent atelectasis. ACT 112: Negative or not required by law. Electronically signed by: Ubaldo Zapata M.D. 09/14/2023 4:23 PM
--- NOTE | 2023-09-14 18:10 | Ultrasound Report ---
BILATERAL LOWER EXTREMITY VENOUS DOPPLER HISTORY: R>L lower ext edema COMPARISON STUDY: None. FINDINGS: There is normal compressibility, flow, and augmentation within the bilateral lower extremit y deep venous systems. The calf vessels are not well assessed due to the subcutaneous edema within th e lower leg. These appear to be grossly patent. IMPRESSION: No definite DVT within the right or left lower extremity. ACT 112: Negative or not required by law. Electronically signed by: Javier Tolentino M.D. 09/14/2023 6:09 PM
[2023-09-14] MEDS ORDERED: METOPROLOL TARTRATE 25 MG TAB PO SCH (18:30)
[2023-09-14 18:39] LABS: Basophils # (auto) 0.07 K/uL (0.00-0.20); Basophils % (auto) 1.4 %; Eosinophils # (auto) 0.17 K/uL (0.00-0.50); Eosinophils % (auto) 3.4 %; Hematocrit (blood only) 40.7 % (42.0-52.0); Hemoglobin 12.8 g/dl (14.0-18.0); Immature Granulocytes # (auto) 0.01 K/uL (0.01-0.20); Immature Granulocytes % (auto) 0.2 %; Lymphocytes # (auto) 0.76 K/uL (1.20-3.40); Lymphocytes % (auto) 15.3 %; Mean Corpuscular Hemoglobin 28.3 pg (25.0-34.0); Mean Corpuscular Hgb Conc 31.4 g/dL (32.0-36.0); Mean Corpuscular Volume 89.8 fL (80.0-100.0); Mean Platelet Volume 9.6 fL (9.4-12.4); Neutrophils # (auto) 3.57 K/uL (1.40-6.50); Neutrophils % (auto) 71.7 %; Platelet Count 174 K/uL (130-400); RDW Coefficient of Variation 19.2 % (11.5-14.5); RDW Standard Deviation 62.5 fL (36.4-46.3); Red Blood Count 4.53 M/uL (4.70-6.10); White Blood Count 4.98 K/ul (4.8-10.8)
[2023-09-14 18:43] LABS: Albumin Globulin Ratio 1.6 (0.9-2); Albumin Level 4.3 gm/dl (3.4-5.0); BUN Creatinine Ratio 14.5 (10-20); Bilirubin,Total 1.5 mg/dl (0.2-1.0); Calcium 9.6 mg/dl (8.6-10.3); Creatinine Clr Calc Pharmacy 43.5 ml/min; Est GFR (Non-African American) 36.3 ml/min; Globulin 2.7 gm/dl (2.5-4.0); Potassium 3.5 mmol/L (3.5-5.1)
[2023-09-14 18:50] LABS: Troponin I High Sensitivity 42.4 pg/ml (0-20)
[2023-09-14 18:58] LABS: INR 1.1 (0.9-1.1); Partial Thromboplastin Ratio 0.9; Partial Thromboplastin Time 26.7 Seconds (21.0-31.0); Prothrombin Time 12.4 Seconds (9.0-12.0)
[2023-09-14 19:37] LABS: Appearance Urine Cloudy (Clear); Bacteria Urine Automated 4+ (Negative); Bilirubin Urine Negative (Negative); Blood Urine 2+ (Negative); Color Urine Yellow; Glucose Urine UA Negative (Negative); Ketones Urine Negative (Negative); Leukocyte Esterase Urine 3+ (Negative); Nitrite Urine Positive (Negative); Protein Urine 2+ (Negative); Specific Gravity Urine 1.018 (1.000-1.030); Urobilinogen Urine Negative (Negative); WBC Urine Automated >30 /hpf (0-5)
[2023-09-14] MEDS ORDERED: FUROSEMIDE INJ 20 MG/2 ML VIAL IV ONE ×2 (20:02→20:19)
--- NOTE | 2023-09-14 20:36 | History & Physical Report ---
Date of Service September 14, 2023 Assessment & Plan (1) Bilateral pleural effusion: (2) CHF exacerbation: (3) Urinary retention: (4) Prostate cancer: (5) Acute respiratory failure with hypoxia: (6) UTI (urinary tract infection): (7) Hypertension: (8) Hyperlipidemia: (9) Elevated troponin: (10) Atrial fibrillation: Plan CHF exacerbation/atrial fibrillation history/hypertension/acute respiratory failure with hypoxia- The patient will be admitted to telemetry for serial cardiac enzymes, serial EKG's, cardiac rhythm monitoring He was initially given furosemide 20 mg IV from the ED, will give an additional 20 mg IV now for 40 mg IV this evening, and 40 mg IV every morning Echocardiogram on 03/18/2023 with ejection fraction 60-65%, mild mitral regurgitation, mild to moderate tricuspid regurgitation. Initial troponin 42.4 and BNP 1710 Right greater than left pleural effusions on chest x-ray Follow serially Nasal cannula oxygen 2 L, with titration goal 94% Continue metoprolol tartrate 75 mg p.o. twice daily Abnormal urinalysis/history of pansensitive E. coli UTI/prostate cancer with urinary retention Link catheter placed in the emergency department Follow urine culture and sensitivity Cefepime 2 g IV every 12 hours Continue tamsulosin 0.4 mg every morning Continue finasteride 5 mg every morning Consult urology CKD stage III- Creatinine 1.79 on admission, with base range 1.85-2.53 Follow serially as diuresis takes place History of Present Illness Chief Complaint: The patient presents to the emergency department worsening shortness of breath and dyspnea on exertion, with lower extremity edema Primary Care Provider: Harish Mantilla MD The patient is a 73-year-old male with a past medical history including prostate cancer, erectile dysfunction, UTI, mitral vegetation, hyperlipidemia, hypertension. He presents to the emergency department with symptoms as noted above. Significant laboratories: Creatinine 1.79, glucose 107, troponin 42.4, BNP 1710 Urinalysis looks positive Chest x-ray shows vascular congestion with right greater than left pleural effusions Venous Doppler bilaterally lower extremities negative for DVT Allergies Allergy/AdvReac Type Severity Reaction Status Date / Time No Known Allergies Allergy Verified 09/14/23 21:17 Home Medications Medication Instructions Recorded Confirmed Type [id number] 1 tab PO DAILY PRN Allergy Symptoms 05/13/23 09/14/23 History tablet finasteride 5 mg tablet (Proscar) 5 mg PO QAM 05/13/23 09/14/23 History tamsulosin 0.4 mg capsule 0.4 mg PO QAM 05/13/23 09/14/23 History ascorbic acid (vitamin C) 500 mg 500 mg PO QAM 05/22/23 09/14/23 History tablet (Vitamin C) ferrous sulfate 325 mg (65 mg 325 mg PO QAM 05/22/23 09/14/23 History iron) tablet metoprolol tartrate 50 mg tablet 75 mg (1.5 x 50 mg) PO BID 30 days 06/01/23 09/14/23 Rx #60 tabs pantoprazole 40 mg tablet,delayed 40 mg PO QAM #30 tabs 06/01/23 09/14/23 Rx release (Protonix) Past Med/Surg History Medical History (Updated 09/15/23 @ 01:21 by Erick Gaffney MD) Atrial fibrillation Acute blood loss anemia Gross hematuria Adenocarcinoma of prostate History of recent hospitalization admitted to [facility] on 03/17 obstructive renal failure Mitral regurgitation GERD (gastroesophageal reflux disease) Enlarged prostate Hearing deficit BL VICK PRN Atrial fibrillation per pt, dx'd 6 mo ago. on Eliquis. no application support intern. Urinary retention Obstructive nephropathy Acute kidney injury Hyperlipidemia Hypertension Umbilical hernia Surgical History S/P TURP History of metal removed from eye History of cataract surgery History of tonsillectomy History of appendectomy Family History Father Laryngeal cancer Other No family history of adverse response to anesthesia Social History Smoking Status: Former smoker Tobacco Type: Cigarettes Cigarettes Per Day: 30 years ago; Smoking End Date: 50 years ago; Second Hand Exposure: No; Do You Dip or Chew Tobacco: Yes; Hx Alcohol Use: No Hx Substance Use: No Preferred Language: Serbian Communication Ability: Effective Visual Impairment: Limited Hearing Ability: Hard of Hearing Apprise Counselor Required: No Beliefs That Will Affect Care: None marital status: Single Current Living Situation: Alone current occupational status: retired Other Information That Helps Us Care for You: No Feels Safe at Home: Yes Safety Concerns: Feels Safe At This Time Diet: regular caffeine: No Dental Care, Regularly: No Physical Activity Frequency: Does not Exercise Seatbelt Use: never Sunscreen Use: Yes (Protective clothing ) Assistive Devices: Glasses Review of Systems Review of Systems: The patient denies chest pain, palpitations, cough, sore throat, fevers, chills, sweats, nausea, vomiting, diarrhea , constipation, abdominal pain, pelvic pain, blood in urine or stool, dysuria, urinary frequency or urgency, lightheadedness, dizziness, headache, memory loss, loss of consciousness, rash, abnormal bruising or bleeding, imbalance, focal weakness, numbness or tingling in arms, generalized arthralgias or myalgias, back or neck pain, or night sweats. The review of systems is otherwise negative other than for that already noted above, and at least 10 systems have been reviewed. Physical Exam Physical Exam: The patient is awake, alert and oriented 3, well developed and well nourished, normocephalic and atraumatic, lying in bed and in no acute distress. HEENT--PERRL, EOMI, mucous membranes and oropharynx normal. Neck--supple. No JVD. No bruits. Thyroid normal, trachea midline, no adenopathy. Heart--normal S1 and S2. No murmurs, rubs or gallops. Lungs--crackles at the bases bilaterally. no respiratory distress, no accessory muscle use. Abdomen--normal bowel sounds and soft. Nontender. Nondistended. Obese Extremities--1+ bilateral pretibial pitting edema. Dermatologic--normal skin turgor, normal color, no abnormal lymph nodes, no rash. Neurologic--cranial nerves II through XII grossly intact. Rheumatologic--normal range of motion. Psychiatric--normal affect. Results & Data Results & Data Vital Signs (Past 12 Hours) Vital Signs Temp Pulse Pulse Resp BP BP Pulse Ox 09/14/23 19:20 84 23 161/114 H 93 09/14/23 18:20 121 H 09/14/23 18:19 110 H 20 166/133 H 93 09/14/23 15:21 36.7 C 124 H 18 162/112 H 95 O2 Del Method 09/14/23 19:20 Room Air 09/14/23 18:20 09/14/23 18:19 Room Air 09/14/23 15:21 Room Air Laboratory Results Laboratory Results WBC 4.98 K/ul (4.8-10.8) 09/14/23 18:13 RBC 4.53 M/uL (4.70-6.10) L 09/14/23 18:13 Hgb 12.8 g/dl (14.0-18.0) L 09/14/23 18:13 Hct 40.7 % (42.0-52.0) L 09/14/23 18:13 MCV 89.8 fL (80.0-100.0) 09/14/23 18:13 MCH 28.3 pg (25.0-34.0) 09/14/23 18:13 MCHC 31.4 g/dL (32.0-36.0) L 09/14/23 18:13 RDW Std Deviation 62.5 fL (36.4-46.3) H 09/14/23 18:13 RDW Coeff of Efrain 19.2 % (11.5-14.5) H 09/14/23 18:13 Plt Count 174 K/uL (130-400) 09/14/23 18:13 MPV 9.6 fL (9.4-12.4) 09/14/23 18:13 Immature Gran % (Auto) 0.2 % 09/14/23 18:13 Neut % (Auto) 71.7 % 09/14/23 18:13 Lymph % (Auto) 15.3 % 09/14/23 18:13 [place] % (Auto) 8.0 % 09/14/23 18:13 Eos % (Auto) 3.4 % 09/14/23 18:13 Baso % (Auto) 1.4 % 09/14/23 18:13 Neut # (Auto) 3.57 K/uL (1.40-6.50) 09/14/23 18:13 Lymph # (Auto) 0.76 K/uL (1.20-3.40) L 09/14/23 18:13 [place] # (Auto) 0.40 K/uL (0.11-0.59) 09/14/23 18:13 Eos # (Auto) 0.17 K/uL (0.00-0.50) 09/14/23 18:13 Baso # (Auto) 0.07 K/uL (0.00-0.20) 09/14/23 18:13 Immature Gran # (Auto) 0.01 K/uL (0.01-0.20) 09/14/23 18:13 PT 12.4 Seconds (9.0-12.0) H 09/14/23 18:13 INR 1.1 (0.9-1.1) 09/14/23 18:13 APTT 26.7 Seconds (21.0-31.0) 09/14/23 18:13 PTT Ratio 0.9 09/14/23 18:13 Sodium 145 mmol/L (136-145) 09/14/23 18:13 Potassium 3.5 mmol/L (3.5-5.1) 09/14/23 18:13 Chloride 108 mmol/L (98-107) H 09/14/23 18:13 Carbon Dioxide 31 mmol/L (21-32) 09/14/23 18:13 Anion Gap 6 (3-11) 09/14/23 18:13 BUN 26 mg/dl (6-23) H 09/14/23 18:13 Creatinine 1.79 mg/dl (0.6-1.4) H 09/14/23 18:13 Est Cr Clr Drug Dosing 43.5 ml/min 09/14/23 18:13 Est GFR ( Amer) 42.0 ml/min 09/14/23 18:13 Est GFR (Non-Af Amer) 36.3 ml/min 09/14/23 18:13 BUN/Creatinine Ratio 14.5 (10-20) 09/14/23 18:13 Glucose 107 mg/dl (70-99(Fasting)) H 09/14/23 18:13 Calcium 9.6 mg/dl (8.6-10.3) 09/14/23 18:13 Total Bilirubin 1.5 mg/dl (0.2-1.0) H 09/14/23 18:13 AST 22 U/L (13-39) 09/14/23 18:13 ALT 18 U/L (7-52) 09/14/23 18:13 Alkaline Phosphatase 60 U/L (34-104) 09/14/23 18:13 Troponin I High Sens 36.0 pg/ml (0-20) H 09/14/23 20:59 B-Natriuretic Peptide 1710 pg/ml (0-100) H 09/14/23 18:15 Total Protein 7.0 gm/dl (6.0-8.3) 09/14/23 18:13 Albumin 4.3 gm/dl (3.4-5.0) 09/14/23 18:13 Globulin 2.7 gm/dl (2.5-4.0) 09/14/23 18:13 Albumin/Globulin Ratio 1.6 (0.9-2) 09/14/23 18:13 Urine Color Yellow 09/14/23 18:52 Urine Appearance Cloudy (Clear) A 09/14/23 18:52 Urine pH 7.0 (4.5-7.5) 09/14/23 18:52 Ur Specific [place] 1.018 (1.000-1.030) 09/14/23 18:52 Urine Protein 2+ (Negative) H 09/14/23 18:52 Urine Glucose (UA) Negative (Negative) 09/14/23 18:52 Urine Ketones Negative (Negative) 09/14/23 18:52 Urine Blood 2+ (Negative) H 09/14/23 18:52 Urine Nitrite Positive (Negative) A 09/14/23 18:52 Urine Bilirubin Negative (Negative) 09/14/23 18:52 Urine Urobilinogen Negative (Negative) 09/14/23 18:52 Ur Leukocyte Esterase 3+ (Negative) H 09/14/23 18:52 Urine WBC (Auto) >30 /hpf (0-5) H 09/14/23 18:52 Urine RBC (Auto) 10-30 /hpf (0-4) H 09/14/23 18:52 U Hyaline Cast (Auto) 1-5 /lpf (0-5) 09/14/23 18:52 U Epithel Cells (Auto) 5-10 /lpf (0-5) H 09/14/23 18:52 Urine Bacteria (Auto) 4+ (Negative) H 09/14/23 18:52 Impressions Chest X-Ray 09/14/23 15:26 SINGLE VIEW CHEST CLINICAL HISTORY: Weight gain. Lower extremity edema FINDINGS: A PA chest radiograph is compared to study dated 03/17/2023. The heart is enlarged noting atherosclerotic calcification of the thoracic ureter. There is mild pulmonary vascular congestion. There are right larger than left pleural effusions with dependent atelectasis. No pneumothorax is seen. The skeletal structures are osteopenic. The bony thorax is grossly intact. IMPRESSION: 1. Cardiomegaly with mild pulmonary vascular congestion. 2. Right larger than left pleural effusions with dependent atelectasis. ACT 112: Negative or not required by law. Electronically signed by: Ubaldo Zapata M.D. 09/14/2023 4:23 PM Venous Doppler Study 09/14/23 15:26 BILATERAL LOWER EXTREMITY VENOUS DOPPLER HISTORY: R>L lower ext edema COMPARISON STUDY: None. FINDINGS: There is normal compressibility, flow, and augmentation within the bilateral lower extremity deep venous systems. The calf vessels are not well assessed due to the subcutaneous edema within the lower leg. These appear to be grossly patent. IMPRESSION: No definite DVT within the right or left lower extremity. ACT 112: Negative or not required by law. Electronically signed by: Javier Tolentino M.D. 09/14/2023 6:09 PM Code Status & VTE Plan Code Status Full code VTE Prophylaxis Plan VTE Prophylaxis will be ordered: Yes PG Care Time/CCT Total # of Minutes Spent Total Time Spent with Patient: Total time spent is greater than 50% in coordination of care (as documented) at patient's floor/unit and/or counseling patient: Coding Level of Care Code 68480 INT INP/OBS CARE 3/75MIN Diagnoses Bilateral pleural effusion J90 CHF exacerbation I50.9 Urinary retention R33.9 Prostate cancer C61 Acute respiratory failure with hypoxia J96.01 UTI (urinary tract infection) N39.0 Hypertension I10 Hyperlipidemia E78.5 Elevated troponin R79.89 Atrial fibrillation I48.91
[2023-09-14] MEDS: CEFEPIME 2,000 MG in SYRINGE 0 ML IV SCH (21:01)
[2023-09-14] MEDS ORDERED: ACETAMINOPHEN 325 MG TAB PO PRN (23:22)
[2023-09-14] MEDS ORDERED: DEXTROSE 50% 50 ML SYRINGE IV PRN (23:22)
[2023-09-14] MEDS ORDERED: GLUCOSE 10 TAB/TUBE PO PRN (23:22)
[2023-09-14] MEDS ORDERED: GLUCOSE 40% GEL 15 GM TUBE PO PRN (23:22)
[2023-09-14] MEDS ORDERED: ONDANSETRON INJ 2 MG/ML 2 ML VIAL IV PRN (23:22)
[2023-09-14] MEDS ORDERED: GLUCAGON FOR INJ 1 MG VIAL SQ PRN (23:22)
[2023-09-14] MEDS ORDERED: CARBOHYDRATES FOR HYPOGLYCEMIA PO PRN (23:22)
--- NOTE | 2023-09-14 23:48 | Emergency Department Note ---
History of Present Illness General Chief Complaint: Shortness of Breath/Dyspnea Stated Complaint: SOB, AFIB Time Seen by Provider: 09/14/23 18:06 History of Present Illness Provider Complaint: shortness of breath Onset (ago): week(s) (3) Consistency/Duration: + progressively worsening Relieved By: + upright position Exacerbated By: + lying flat, + exertion, + movement and + coughing Associated symptoms: + chest pain, + orthopnea and + chest congestion; no pain with inspiration, no cough, no wheezing, no sputum production, no lower extremity pain or no abdominal pain HPI Narrative: 25 pound increase in the last 3 months. Patient reports she has stopped taking his Eliquis in the last month. Related Data Home oxygen amount: none Home Medications Medication Instructions Recorded Confirmed Type [id number] 1 tab PO DAILY PRN Allergy Symptoms 05/13/23 09/14/23 History tablet finasteride 5 mg tablet (Proscar) 5 mg PO QAM 05/13/23 09/14/23 History tamsulosin 0.4 mg capsule 0.4 mg PO QAM 05/13/23 09/14/23 History ascorbic acid (vitamin C) 500 mg 500 mg PO QAM 05/22/23 09/14/23 History tablet (Vitamin C) ferrous sulfate 325 mg (65 mg 325 mg PO QAM 05/22/23 09/14/23 History iron) tablet metoprolol tartrate 50 mg tablet 75 mg (1.5 x 50 mg) PO BID 30 days 06/01/23 09/14/23 Rx #60 tabs pantoprazole 40 mg tablet,delayed 40 mg PO QAM #30 tabs 06/01/23 09/14/23 Rx release (Protonix) Allergies Allergy/AdvReac Type Severity Reaction Status Date / Time No Known Allergies Allergy Verified 09/14/23 21:17 Past Med/Surg History Medical History Acute blood loss anemia Gross hematuria Adenocarcinoma of prostate History of recent hospitalization admitted to [facility] on 03/17 obstructive renal failure Mitral regurgitation GERD (gastroesophageal reflux disease) Enlarged prostate Hearing deficit BL VICK PRN Atrial fibrillation per pt, dx'd 6 mo ago. on Eliquis. 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 Urinary retention Obstructive nephropathy Acute kidney injury Atrial fibrillation Hyperlipidemia Hypertension Umbilical hernia Surgical History S/P TURP History of metal removed from eye History of cataract surgery History of tonsillectomy History of appendectomy Family History Father Laryngeal cancer Other No family history of adverse response to anesthesia Social History Smoking Status: Former smoker Tobacco Type: Cigarettes Cigarettes Per Day: 30 years ago; Smoking End Date: 50 years ago; Second Hand Exposure: No; Do You Dip or Chew Tobacco: Yes; Hx Alcohol Use: No Hx Substance Use: No Preferred Language: Sami Communication Ability: Effective Visual Impairment: Limited Hearing Ability: Hard of Hearing Market Editor Required: No Beliefs That Will Affect Care: None marital status: Single Current Living Situation: Alone current occupational status: retired Other Information That Helps Us Care for You: No Feels Safe at Home: Yes Safety Concerns: Feels Safe At This Time Diet: regular caffeine: No Dental Care, Regularly: No Physical Activity Frequency: Does not Exercise Seatbelt Use: never Sunscreen Use: Yes (Protective clothing ) Assistive Devices: Glasses Physical Exam 2 Vital Signs: Vital Signs - 24 hr 09/14/23 15:21 09/14/23 18:19 09/14/23 18:20 Temperature 36.7 C Temperature Source Temporal Artery Sc an Pulse Rate 124 H 121 H Pulse Rate [Apical ] 110 H Respiratory Rate 18 20 Respiratory Effort / Characteristics Non-Labored Non-Labored Respiratory Depth Normal Normal Blood Pressure 162/112 H Blood Pressure [Ri ght Arm] 166/133 H Blood Pressure Nancy n 128 Blood Pressure Nancy n [Right Arm] 144 Blood Pressure Pos ition [Right Arm] Lying Pulse Oximetry 95 93 Oxygen Delivery Me thod Room Air Room Air Sepsis Recent Feve r Within 48 Hours No Sepsis New/Unexpla ined Change in Men patricio Status No Sepsis Action Take n by Nursing No Action Required 09/14/23 19:20 Temperature Temperature Source Pulse Rate 84 Pulse Rate [Apical ] Respiratory Rate 23 Respiratory Effort / Characteristics Respiratory Depth Blood Pressure 161/114 H Blood Pressure [Ri ght Arm] Blood Pressure Nancy n 129 Blood Pressure Nancy n [Right Arm] Blood Pressure Pos ition [Right Arm] Pulse Oximetry 93 Oxygen Delivery Me thod Room Air Sepsis Recent Feve r Within 48 Hours Sepsis New/Unexpla ined Change in Men patricio Status Sepsis Action Take n by Nursing Physical Exam: Physical Exam HENT: Exam performed. - Head: Normocephalic and atraumatic. - Right Ear: External ear normal. No mastoid erythema - Left Ear: External ear normal. No mastoid erythema - Mouth/Throat: The oropharynx is clear and moist. No trismus in the jaw. No dental abscesses or uvula swelling. No oropharyngeal exudate or tonsillar abscesses. EYES: Conjunctivae and EOM are normal. Pupils are equal, round, and reactive to light. Right eye exhibits no discharge. Left eye exhibits no discharge. No scleral icterus. NECK: Normal range of motion. Neck supple. No JVD present. No spinous process tenderness present. CV: Normal rate, irregular rhythm, normal heart sounds and intact distal pulses. 3+ pitting edema of the bilateral lower extremities. Palpable radial pulses bue. PULM/CHEST: Rales bilaterally ABD: The abdomen is soft. Bowel sounds are normal. He has no distension. No mass is present. There is no tenderness. There is no rebound, no guarding. MUSC/SKEL: Normal range of motion. There is no peripheral edema, tenderness or deformity. LYMPH: No cervical adenopathy. NEURO: He is alert and oriented to person, place, and time. He has normal strength. No cranial nerve deficit or sensory deficit. Coordination and gait normal. GCS eye subscore is 4. GCS verbal subscore is 5. GCS motor subscore is 6. Cerebellar tests wnl. SKIN: Skin is warm and dry. He is not diaphoretic. PSYCH: He has a normal mood and affect. Behavior is normal. Judgment and thought content normal. Course Course 1805: The patient was evaluated in room C4. A complete history and physical exam was performed Cardiac monitoring: An order was placed for continuous cardiac monitoring. The monitor shows a rate of 100 with a fib rhythm interpreted by me 2000: Vital signs stable. Hemoglobin stable. Coagulation studies within normal limits. Creatinine at baseline at 1.79. Patient's BNP is 1710 and patient has an elevated high-sensitivity troponin of 42.4. Chest x-ray shows cardiomegaly with cephalization. Patient will be treated with Lasix and admitted to [facility]ist team Dr. Anderson's team will be notified. Administered Medications Cefepime HCl 2,000 mg/ Syringe 20 mls @ 5 mls/min IV Q12H [facility]; Protocol Stop: 09/24/23 20:44 Last Admin: 09/14/23 21:01 Dose: 5 mls/min Documented By: KANDY Metoprolol Tartrate (Metoprolol Tartrate 25 Mg Tab) 75 mg PO QAM [facility] Stop: 10/14/23 18:29 Last Admin: 09/14/23 18:32 Dose: 75 mg Documented By: MMG Discontinued Medications Furosemide (Furosemide Inj 20 Mg/2 Ml Vial) 20 mg IV ONE ONE Stop: 09/14/23 20:03 Last Admin: 09/14/23 20:34 Dose: 20 mg Documented By: KANDY Furosemide (Furosemide Inj 20 Mg/2 Ml Vial) 20 mg IV ONE ONE Stop: 09/14/23 20:20 Last Admin: 09/14/23 20:35 Dose: 20 mg Documented By: KANDY Medical Decision Making Laboratory Data Attestation: I reviewed the patient's lab results. 09/14/23 18:13 09/14/23 18:13 Lab Results 09/14/23 09/14/23 09/14/23 Range/Units 18:13 18:15 18:52 WBC 4.98 (4.8-10.8) K/ul RBC 4.53 L (4.70-6.10) M/uL Hgb 12.8 L (14.0-18.0) g/dl Hct 40.7 L (42.0-52.0) % MCV 89.8 (80.0-100.0) fL MCH 28.3 (25.0-34.0) pg MCHC 31.4 L (32.0-36.0) g/dL RDW Std Deviation 62.5 H (36.4-46.3) fL RDW Coeff of Efrain 19.2 H (11.5-14.5) % Plt Count 174 (130-400) K/uL MPV 9.6 (9.4-12.4) fL Immature Gran % (Auto) 0.2 % Neut % (Auto) 71.7 % Lymph % (Auto) 15.3 % [place] % (Auto) 8.0 % Eos % (Auto) 3.4 % Baso % (Auto) 1.4 % Neut # (Auto) 3.57 (1.40-6.50) K/uL Lymph # (Auto) 0.76 L (1.20-3.40) K/uL [place] # (Auto) 0.40 (0.11-0.59) K/uL Eos # (Auto) 0.17 (0.00-0.50) K/uL Baso # (Auto) 0.07 (0.00-0.20) K/uL Immature Gran # (Auto) 0.01 (0.01-0.20) K/uL PT 12.4 H (9.0-12.0) Seconds INR 1.1 (0.9-1.1) APTT 26.7 (21.0-31.0) Seconds PTT Ratio 0.9 Sodium 145 (136-145) mmol/L Potassium 3.5 (3.5-5.1) mmol/L Chloride 108 H (98-107) mmol/L Carbon Dioxide 31 (21-32) mmol/L Anion Gap 6 (3-11) BUN 26 H (6-23) mg/dl Creatinine 1.79 H (0.6-1.4) mg/dl Est Cr Clr Drug Dosing 43.5 ml/min Est GFR ( Amer) 42.0 ml/min Est GFR (Non-Af Amer) 36.3 ml/min BUN/Creatinine Ratio 14.5 (10-20) Glucose 107 H (70-99(Fasting)) mg/dl Calcium 9.6 (8.6-10.3) mg/dl Total Bilirubin 1.5 H (0.2-1.0) mg/dl AST 22 (13-39) U/L ALT 18 (7-52) U/L Alkaline Phosphatase 60 (34-104) U/L Troponin I High Sens 42.4 H (0-20) pg/ml B-Natriuretic Peptide 1710 H (0-100) pg/ml Total Protein 7.0 (6.0-8.3) gm/dl Albumin 4.3 (3.4-5.0) gm/dl Globulin 2.7 (2.5-4.0) gm/dl Albumin/Globulin Ratio 1.6 (0.9-2) Urine Color Yellow Urine Appearance Cloudy A (Clear) Urine pH 7.0 (4.5-7.5) Ur Specific [place] 1.018 (1.000-1.030) Urine Protein 2+ H (Negative) Urine Glucose (UA) Negative (Negative) Urine Ketones Negative (Negative) Urine Blood 2+ H (Negative) Urine Nitrite Positive A (Negative) Urine Bilirubin Negative (Negative) Urine Urobilinogen Negative (Negative) Ur Leukocyte Esterase 3+ H (Negative) Urine WBC (Auto) >30 H (0-5) /hpf Urine RBC (Auto) 10-30 H (0-4) /hpf U Hyaline Cast (Auto) 1-5 (0-5) /lpf U Epithel Cells (Auto) 5-10 H (0-5) /lpf Urine Bacteria (Auto) 4+ H (Negative) Imaging Data Attestation: I personally reviewed and interpreted this imaging study as follows: My Impression: Chest x-ray shows cardiomegaly with cephalization. Radiologist's Impression: Chest X-Ray 09/14/23 15:26 SINGLE VIEW CHEST CLINICAL HISTORY: Weight gain. Lower extremity edema FINDINGS: A PA chest radiograph is compared to study dated 03/17/2023. The heart is enlarged noting atherosclerotic calcification of the thoracic ureter. There is mild pulmonary vascular congestion. There are right larger than left pleural effusions with dependent atelectasis. No pneumothorax is seen. The skeletal structures are osteopenic. The bony thorax is grossly intact. IMPRESSION: 1. Cardiomegaly with mild pulmonary vascular congestion. 2. Right larger than left pleural effusions with dependent atelectasis. ACT 112: Negative or not required by law. Electronically signed by: Ubaldo Zapata M.D. 09/14/2023 4:23 PM Venous Doppler Study 09/14/23 15:26 BILATERAL LOWER EXTREMITY VENOUS DOPPLER HISTORY: R>L lower ext edema COMPARISON STUDY: None. FINDINGS: There is normal compressibility, flow, and augmentation within the bilateral lower extremity deep venous systems. The calf vessels are not well assessed due to the subcutaneous edema within the lower leg. These appear to be grossly patent. IMPRESSION: No definite DVT within the right or left lower extremity. ACT 112: Negative or not required by law. Electronically signed by: Javier Tolentino M.D. 09/14/2023 6:09 PM ECG Data Attestation: I personally reviewed and interpreted this ECG as follows: Interpretation: Atrial fibrillation with a rate of 102. QRS and QTc intervals within normal limits. No ST elevation or ST depression MDM Narrative 1806: The patient was evaluated in room C4. A complete history and physical exam was performed Cardiac monitoring: An order was placed for continuous cardiac monitoring. The monitor shows a rate of 100 with a fib rhythm interpreted by me 2000: Vital signs stable. Hemoglobin stable. Coagulation studies within normal limits. Creatinine at baseline at 1.79. Patient's BNP is 1710 and patient has an elevated high-sensitivity troponin of 42.4. Chest x-ray shows cardiomegaly with cephalization. Patient will be treated with Lasix and admitted to the [facility] Hospitalist team Dr. Anderson's team will be notified. Impression & Plan Congestive heart failure Discharge Plan Visit Data Chief Complaint: Shortness of Breath/Dyspnea Stated Complaint: SOB, AFIB ED Provider: Jorge Bearden Discharge Problem: Congestive heart failure Patient Disposition: Admitted As Inpatient Discharge Instructions Interventions: ED Discharge Assessment Last Done: 09/14/23 23:22
[2023-09-15] MEDS: PANTOprazole 40 MG TAB PO SCH ×3 (00:31→20:40)
[2023-09-15 06:43] LABS: Basophils # (auto) 0.07 K/uL (0.00-0.20); Basophils % (auto) 1.3 %; Eosinophils # (auto) 0.21 K/uL (0.00-0.50); Eosinophils % (auto) 3.8 %; Hematocrit (blood only) 39.9 % (42.0-52.0); Hemoglobin 12.7 g/dl (14.0-18.0); Immature Granulocytes # (auto) 0.01 K/uL (0.01-0.20); Immature Granulocytes % (auto) 0.2 %; Lymphocytes # (auto) 0.96 K/uL (1.20-3.40); Lymphocytes % (auto) 17.2 %; Mean Corpuscular Hemoglobin 28.8 pg (25.0-34.0); Mean Corpuscular Hgb Conc 31.8 g/dL (32.0-36.0); Mean Corpuscular Volume 90.5 fL (80.0-100.0); Mean Platelet Volume 10.8 fL (9.4-12.4); Monocytes # (auto) 0.51 K/uL (0.11-0.59); Monocytes % (auto) 9.2 %; Neutrophils # (auto) 3.81 K/uL (1.40-6.50); Neutrophils % (auto) 68.3 %; Ovalocytes 1+; Platelet Count 165 K/uL (130-400); Platelet Estimate Normal (Normal); RDW Standard Deviation 62.5 fL (36.4-46.3); Red Blood Count 4.41 M/uL (4.70-6.10); White Blood Count 5.57 K/ul (4.8-10.8)
[2023-09-15 06:48] LABS: Albumin Level 3.9 gm/dl (3.4-5.0); Bilirubin,Total 1.7 mg/dl (0.2-1.0); Calcium 9.1 mg/dl (8.6-10.3); Magnesium 2.1 mg/dl (1.7-2.4); Potassium 3.3 mmol/L (3.5-5.1)
[2023-09-15 06:54] LABS: Albumin Globulin Ratio 1.6 (0.9-2); BUN Creatinine Ratio 13.8 (10-20); Creatinine Clr Calc Pharmacy 38.9 ml/min; Est GFR (African American) 45.7 ml/min; Est GFR (Non-African American) 39.4 ml/min; Globulin 2.5 gm/dl (2.5-4.0); Total Protein 6.4 gm/dl (6.0-8.3)
[2023-09-15] MEDS ORDERED: FUROSEMIDE 40 MG/4 ML VIAL IV SCH (09:00)
[2023-09-15] MEDS: CEFEPIME 2,000 MG in SYRINGE 0 ML IV SCH (09:00)
[2023-09-15] MEDS: ASCORBIC ACID 500 MG TAB PO SCH (09:01)
[2023-09-15] MEDS: FERROUS SULFATE 325 MG TAB PO SCH (09:01)
[2023-09-15] MEDS: METOPROLOL TARTRATE 25 MG TAB PO SCH ×2 (09:02→20:40)
[2023-09-15] MEDS: TAMSULOSIN HCL 0.4 MG CAP PO SCH (09:03)
[2023-09-15] MEDS: FINASTERIDE 5 MG TAB PO SCH (09:03)
--- NOTE | 2023-09-15 10:10 | Urology Consultation ---
Date of Consultation September 15, 2023 Assessment & Plan (1) Prostate cancer: (2) Urinary retention: 73 yo M who presented with worsening shortness of breath, lower extremity edema, and weight gain admitted for CHF exacerbation and acute respiratory failure with hypoxia. - Urology consulted for prostate cancer, Link catheter - Link patent and draining appropriately - Recommend maintain Link catheter for about 1 week - We can arrange voiding trial outpatient and patient can then resume his CIC r egimen - UA suggestive of infection, culture pending - Recommend continue broad spectrum abx and narrow per sensitivity data when available - Continue with Tamsulosin and Finasteride - Regarding his prostate ca, he has evidence of metastatic disease and was referred to medical oncology but has not followed up yet - Recommend f/u with medical oncology for further discussion of androgen deprivation therapy, advanced hormonal therapy or possible chemotherapy - He was given Eligard at Rad onc visit on 07/27 - Continue supportive care and medical management per hospital medicine - Will arrange f/u with urology for voiding trial and ongoing urologic management - will sign off, contact our service with additional questions or concerns History of Present Illness Attending Physician: Abner Iqbal MD History of Present Illness This is a 73-year-old male with past medical history of atrial fibrillation, hypertension, hyperlipidemia, urinary retention, prostate cancer who presented to the emergency department on 09/14/2023 with worsening shortness of breath, low er extremity edema, and weight gain. On arrival, he was afebrile, tachycardic and hypertensive. Lab work showed WBC 4.98, hemoglobin 12.8, creatinine 1.79, troponin 36, BNP 1710. Urinalysis noted 2+ protein, 2+ blood, positive nitrates, 3+ leukocyte esterase, >30 WBC, 10-30 RBC, 5-10 epithelials and 4+ bacteria. Venous Doppler was negative for DVT in the lower extremities. Chest x-ray showed vascular congestion with right greater than left pleural effusions. Link catheter was placed in the emergency department. He was admitted to the medicine service for CHF exacerbation and acute respiratory failure with hypoxia. Urology is consulted for prostate cancer and Link. Patient is known to our service. Follows with Dr. Lofton. History of urinary retention status post TURP on 05/17/2023, prostate cancer (grade group 3), working with radiation oncology, found to have christiano metastasis and referred to medical oncology. He has failed multiple voiding trials and is utilizing CIC 4 times per day. Patient seen and examined in the emergency department. He is awake and resting in litter, no apparent distress. He reports feeling much better since arrival. Reports breathing has improved. Link patent and draining clear yellow urine. Denies suprapubic or flank pain. Tolerating Link catheter. Denies nausea, vomiting, fever or chills. He has not been seen by medical oncology yet regarding his prostate ca. Per chart review, he has diuresed about 6400 mL since catheter placement. Allergies Allergy/AdvReac Type Severity Reaction Status Date / Time No Known Allergies Allergy Verified 09/14/23 21:17 Home Medications Medication Instructions Recorded Confirmed Type egn-cdqkxuebvoegi-rftgboghelgqr 1 tab PO DAILY PRN Allergy Symptoms 05/13/23 09/14/23 History tablet finasteride 5 mg tablet (Proscar) 5 mg PO QAM 05/13/23 09/14/23 History tamsulosin 0.4 mg capsule 0.4 mg PO QAM 05/13/23 09/14/23 History ascorbic acid (vitamin C) 500 mg 500 mg PO QAM 05/22/23 09/14/23 History tablet (Vitamin C) ferrous sulfate 325 mg (65 mg 325 mg PO QAM 05/22/23 09/14/23 History iron) tablet metoprolol tartrate 50 mg tablet 75 mg (1.5 x 50 mg) PO BID 30 days 06/01/23 09/14/23 Rx #60 tabs pantoprazole 40 mg tablet,delayed 40 mg PO QAM #30 tabs 06/01/23 09/14/23 Rx release (Protonix) Patient History Medical History Atrial fibrillation Acute blood loss anemia Gross hematuria Adenocarcinoma of prostate History of recent hospitalization admitted to [facility] on 03/17 obstructive renal failure Mitral regurgitation GERD (gastroesophageal reflux disease) Enlarged prostate Hearing deficit BL VICK PRN Atrial fibrillation per pt, dx'd 6 mo ago. on Eliquis. 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 Urinary retention Obstructive nephropathy Acute kidney injury Hyperlipidemia Hypertension Umbilical hernia Surgical History S/P TURP History of metal removed from eye History of cataract surgery History of tonsillectomy History of appendectomy Family History Father Laryngeal cancer Other No family history of adverse response to anesthesia Social History Smoking Status: Former smoker Tobacco Type: Cigarettes Cigarettes Per Day: 30 years ago; Smoking End Date: 50 years ago; Second Hand Exposure: No; Do You Dip or Chew Tobacco: Yes; Hx Alcohol Use: No Hx Substance Use: No Preferred Language: Bengali Communication Ability: Effective Visual Impairment: Limited Hearing Ability: Hard of Hearing Sheriff Required: No Beliefs That Will Affect Care: None marital status: Single Current Living Situation: Alone current occupational status: retired Other Information That Helps Us Care for You: No Feels Safe at Home: Yes Safety Concerns: Feels Safe At This Time Diet: regular caffeine: No Dental Care, Regularly: No Physical Activity Frequency: Does not Exercise Seatbelt Use: never Sunscreen Use: Yes (Protective clothing ) Assistive Devices: Glasses Review of Systems Review of Systems: All systems reviewed & are unremarkable except as noted in HPI & below Physical Exam Physical Exam: General: well-appearing, no acute distress HEENT: Normocephalic Pulmonary: Nonlabored respirations, supplemental O2 in place CV: bilateral lower extremity edema Abdomen: Nondistended, nontender Extremities: Moves all 4 spontaneously Neuro: No gross deficits Psych: alert and oriented, normal mood Skin: Warm, dry, no rashes noted : Link draining clear yellow urine Results & Data Vital Signs (Past 12 Hours) Vital Signs Pulse Pulse Resp BP BP Pulse Ox O2 Del Method 09/15/23 09:44 83 18 150/105 H 90 Nasal Cannula 09/15/23 06:00 95 H 22 116/91 94 Nasal Cannula 09/15/23 05:54 85 24 142/93 H 95 Nasal Cannula 09/15/23 05:00 106 H 14 169/107 H 96 Nasal Cannula 09/15/23 04:00 92 H 19 178/116 H 95 09/15/23 03:08 Nasal Cannula 09/15/23 03:01 110 H 24 164/121 H 90 09/15/23 02:00 121 H 23 94 Nasal Cannula 09/15/23 01:30 193/111 H 09/15/23 01:30 103 H 18 92 Nasal Cannula 09/15/23 01:01 100 H 22 174/115 H 92 Nasal Cannula 09/15/23 00:30 90 18 189/137 H 94 Nasal Cannula 09/15/23 00:00 79 12 170/103 H 96 Nasal Cannula 09/14/23 23:30 88 18 137/83 93 09/14/23 23:23 86 09/14/23 23:11 96 Room Air 09/14/23 23:01 157/112 H 09/14/23 23:01 82 14 91 09/14/23 23:00 86 12 90 09/14/23 22:42 75 18 165/90 H 90 Room Air 09/14/23 22:31 92 H 12 165/90 H 91 Room Air 09/14/23 22:18 85 O2 Flow Rate 09/15/23 09:44 1 09/15/23 06:00 1 09/15/23 05:54 1 09/15/23 05:00 1 09/15/23 04:00 09/15/23 03:08 1 09/15/23 03:01 09/15/23 02:00 1 09/15/23 01:30 09/15/23 01:30 1 09/15/23 01:01 1 09/15/23 00:30 1 09/15/23 00:00 1 09/14/23 23:30 09/14/23 23:23 09/14/23 23:11 09/14/23 23:01 09/14/23 23:01 09/14/23 23:00 09/14/23 22:42 09/14/23 22:31 09/14/23 22:18 PG Care Time/CCT Total # of Minutes Spent Total Time Spent with Patient: Total time spent is greater than 50% in coordination of care (as documented) at patient's floor/unit and/or counseling patient: Coding Level of Care Code 45002 INT INP/OBS CARE 2/55MIN Diagnoses Prostate cancer C61 Urinary retention R33.9
--- NOTE | 2023-09-15 15:57 | Electrocardiogram Report ---
Test Reason : Blood Pressure : / mmHG Vent. Rate : 102 BPM Atrial Rate : 000 BPM P-R Int : 000 ms QRS Dur : 098 ms QT Int : 382 ms P-R-T Axes : 000 -01 006 degrees QTc Int : 497 ms Atrial fibrillation with rapid ventricular response Incomplete right bundle branch block Nonspecific T wave abnormality Abnormal ECG When compared with ECG of 22-MAY-2023 09:18, Incomplete right bundle branch block is now Present Nonspecific T wave abnormality now evident in Anterolateral leads Confirmed by Domo Buenrostro ([id number]) on 09/15/2023 3:57:05 PM Referred By: Marvin Mantilla Confirmed By:Domo Buenrostro
[2023-09-15] MEDS: POTASSIUM CHLORIDE 20 MEQ/15 ML UDC PO SCH (16:59)
--- NOTE | 2023-09-15 18:55 | Hospitalist Progress Note ---
Date of Service September 15, 2023 Assessment & Plan (1) Bilateral pleural effusion: (2) CHF exacerbation: (3) Urinary retention: (4) Prostate cancer: (5) Acute respiratory failure with hypoxia: (6) UTI (urinary tract infection): (7) Hypertension: (8) Hyperlipidemia: (9) Elevated troponin: (10) Atrial fibrillation: Plan CHF exacerbation/atrial fibrillation history/hypertension/acute respiratory failure with hypoxia- The patient will be admitted to telemetry for serial cardiac enzymes, serial EKG's, cardiac rhythm monitoring He was initially given furosemide 20 mg IV from the ED, will give an additional 20 mg IV now for 40 mg IV this evening, and 40 mg IV every morning Echocardiogram on 03/18/2023 with ejection fraction 60-65%, mild mitral regurgitation, mild to moderate tricuspid regurgitation. Initial troponin 42.4 and BNP 1710 Right greater than left pleural effusions on chest x-ray Follow serially Nasal cannula oxygen 2 L, with titration goal 94% Continue metoprolol tartrate 75 mg p.o. twice daily Abnormal urinalysis/history of pansensitive E. coli UTI/prostate cancer with urinary retention Link catheter placed in the emergency department Urine culture grew E. coli, started on Ceftin Continue tamsulosin 0.4 mg every morning Continue finasteride 5 mg every morning Consult urology CKD stage III- Creatinine 1.79 on admission, with base range 1.85-2.53 Follow serially as diuresis takes place Admission and Anticipated Discharge Date Admission Date: September 14, 2023 Subjective Acute onset of shortness of Review of Systems Review of Systems: The patient denies chest pain, palpitations, cough, sore throat, fevers, chills, sweats, nausea, vomiting, diarrhea , constipation, abdominal pain, pelvic pain, blood in urine or stool, dysuria, urinary frequency or urgency, lightheadedness, dizziness, headache, memory loss, loss of consciousness, rash, abnormal bruising or bleeding, imbalance, focal weakness, numbness or tingling in arms, generalized arthralgias or myalgias, back or neck pain, or night sweats. The review of systems is otherwise negative other than for that already noted above, and at least 10 systems have been reviewed. Physical Exam Physical Exam: General: well-appearing, no acute distress HEENT: Normocephalic Pulmonary: Nonlabored respirations, supplemental O2 in place CV: bilateral lower extremity edema Abdomen: Nondistended, nontender Extremities: Moves all 4 spontaneously Neuro: No gross deficits Psych: alert and oriented, normal mood Skin: Warm, dry, no rashes noted : Link draining clear yellow urine Results & Data Results & Data Vital Signs (Past 12 Hours) Vital Signs Temp Pulse Pulse Resp BP BP Pulse Ox 09/15/23 15:59 99 H 09/15/23 15:55 09/15/23 15:28 36.6 C 93 H 19 155/88 H 95 09/15/23 09:44 83 18 150/105 H 90 O2 Del Method O2 Flow Rate 09/15/23 15:59 09/15/23 15:55 Nasal Cannula 2 09/15/23 15:28 Nasal Cannula 2 09/15/23 09:44 Nasal Cannula 1 PG Care Time/CCT Total # of Minutes Spent Total Time Spent with Patient: Total time spent is greater than 50% in coordination of care (as documented) at patient's floor/unit and/or counseling patient: Coding Level of Care Code 40044 SUB INP/OBS CARE 3/50MIN Diagnoses Bilateral pleural effusion J90 CHF exacerbation I50.9 Urinary retention R33.9 Prostate cancer C61 Acute respiratory failure with hypoxia J96.01 UTI (urinary tract infection) N39.0 Hypertension I10 Hyperlipidemia E78.5 Elevated troponin R79.89 Atrial fibrillation I48.91
[2023-09-15] MEDS: cefUROXime axetil 250 MG TABLET PO SCH (21:03)
[2023-09-15] MEDS: FUROSEMIDE 40 MG/4 ML VIAL IV SCH (21:04)
[2023-09-16 06:07] LABS: Basophils # (auto) 0.07 K/uL (0.00-0.20); Basophils % (auto) 1.2 %; Eosinophils # (auto) 0.22 K/uL (0.00-0.50); Eosinophils % (auto) 3.9 %; Hematocrit (blood only) 40.2 % (42.0-52.0); Hemoglobin 12.9 g/dl (14.0-18.0); Immature Granulocytes # (auto) 0.01 K/uL (0.01-0.20); Immature Granulocytes % (auto) 0.2 %; Lymphocytes # (auto) 1.03 K/uL (1.20-3.40); Lymphocytes % (auto) 18.4 %; Mean Corpuscular Hemoglobin 28.4 pg (25.0-34.0); Mean Corpuscular Hgb Conc 32.1 g/dL (32.0-36.0); Mean Corpuscular Volume 88.5 fL (80.0-100.0); Mean Platelet Volume 10.2 fL (9.4-12.4); Monocytes % (auto) 8.9 %; Neutrophils # (auto) 3.78 K/uL (1.40-6.50); Neutrophils % (auto) 67.4 %; Platelet Count 188 K/uL (130-400); RDW Coefficient of Variation 18.6 % (11.5-14.5); RDW Standard Deviation 60.5 fL (36.4-46.3); Red Blood Count 4.54 M/uL (4.70-6.10); White Blood Count 5.61 K/ul (4.8-10.8)
[2023-09-16 06:18] LABS: Albumin Globulin Ratio 1.4 (0.9-2); Albumin Level 3.9 gm/dl (3.4-5.0); BUN Creatinine Ratio 13.4 (10-20); Bilirubin,Total 1.8 mg/dl (0.2-1.0); Calcium 9.5 mg/dl (8.6-10.3); Creatinine Clr Calc Pharmacy 39.2 ml/min; Est GFR (African American) 39.9 ml/min; Est GFR (Non-African American) 34.4 ml/min; Globulin 2.7 gm/dl (2.5-4.0); Magnesium 2.1 mg/dl (1.7-2.4); Potassium 4.2 mmol/L (3.5-5.1); Total Protein 6.6 gm/dl (6.0-8.3)
[2023-09-16] MEDS: FINASTERIDE 5 MG TAB PO SCH (07:43)
[2023-09-16] MEDS: cefUROXime axetil 250 MG TABLET PO SCH ×2 (07:43→20:17)
[2023-09-16] MEDS: TAMSULOSIN HCL 0.4 MG CAP PO SCH (07:43)
[2023-09-16] MEDS: METOPROLOL TARTRATE 25 MG TAB PO SCH ×2 (07:43→20:17)
[2023-09-16] MEDS: PANTOprazole 40 MG TAB PO SCH ×2 (07:43→20:17)
[2023-09-16] MEDS: ASCORBIC ACID 500 MG TAB PO SCH (07:44)
[2023-09-16] MEDS: POTASSIUM CHLORIDE 20 MEQ/15 ML UDC PO SCH (07:44)
[2023-09-16] MEDS: FUROSEMIDE 40 MG/4 ML VIAL IV SCH ×2 (07:44→20:23)
[2023-09-16] MEDS: FERROUS SULFATE 325 MG TAB PO SCH (07:44)
--- NOTE | 2023-09-16 10:51 | XCELERA ---
[id number]
--- NOTE | 2023-09-16 13:04 | Electrocardiogram Report ---
Test Reason : Blood Pressure : / mmHG Vent. Rate : 093 BPM Atrial Rate : 105 BPM P-R Int : 000 ms QRS Dur : 106 ms QT Int : 402 ms P-R-T Axes : 000 002 -30 degrees QTc Int : 499 ms Atrial fibrillation Nonspecific ST and T wave abnormality Abnormal ECG When compared with ECG of 14-SEP-2023 18:01, Incomplete right bundle branch block is no longer Present Confirmed by Domo Buenrostro ([id number]) on 09/16/2023 1:03:58 PM Referred By: Marvin Mantilla Confirmed By:Domo Buenrostro
--- NOTE | 2023-09-16 19:34 | Hospitalist Progress Note ---
Date of Service September 16, 2023 Assessment & Plan (1) Bilateral pleural effusion: (2) CHF exacerbation: (3) Urinary retention: (4) Prostate cancer: (5) Acute respiratory failure with hypoxia: (6) UTI (urinary tract infection): (7) Hypertension: (8) Hyperlipidemia: (9) Elevated troponin: (10) Atrial fibrillation: Plan CHF exacerbation/atrial fibrillation history/hypertension/acute respiratory failure with hypoxia -Diastolic type, was responded very well to diuresis,, history of A-fib, resume apixaban, patient apparently does not have any work-up for heart failure -We will consult cardiology to see if the patient a candidate for ischemic cardiomyopathy Abnormal urinalysis/history of pansensitive E. coli UTI/prostate cancer with urinary retention Link catheter placed in the emergency department Urine culture grew E. coli, started on Ceftin Continue tamsulosin 0.4 mg every morning Continue finasteride 5 mg every morning Consult urology, recommended outpatient voiding trial he has evidence of metastatic disease according to urology note the patient was referred to medical oncology but he has not followed up yet CKD stage III- Creatinine 1.79 on admission, with base range 1.85-2.53 Follow serially as diuresis takes place Admission and Anticipated Discharge Date Admission Date: September 14, 2023 Subjective Feeling significantly better, lower extremity numbers improving, echocardiogram showed diastolic heart failure Physical Exam Physical Exam: General: well-appearing, no acute distress HEENT: Normocephalic Pulmonary: Nonlabored respirations, supplemental O2 in place CV: bilateral lower extremity edema Abdomen: Nondistended, nontender Extremities: Moves all 4 spontaneously Neuro: No gross deficits Psych: alert and oriented, normal mood Skin: Warm, dry, no rashes noted : Link draining clear yellow urine Results & Data Results & Data Vital Signs (Past 12 Hours) Vital Signs Temp Pulse Resp BP BP Pulse Ox O2 Del Method 09/16/23 19:02 36.4 C L 109 H 18 161/96 H 91 Room Air 09/16/23 15:42 36.3 C L 98 H 17 164/101 H Room Air 09/16/23 12:00 36.7 C 103 H 17 140/90 94 Room Air 09/16/23 08:00 Nasal Cannula 09/16/23 08:00 36.5 C 119 H 19 175/145 H 96 Nasal Cannula O2 Flow Rate 09/16/23 19:02 11/09/23 15:42 09/16/23 12:00 09/16/23 08:00 2 09/16/23 08:00 2 PG Care Time/CCT Total # of Minutes Spent Total Time Spent with Patient: Total time spent is greater than 50% in coordination of care (as documented) at patient's floor/unit and/or counseling patient: Coding Level of Care Code 58920 SUB INP/OBS CARE 3/50MIN Diagnoses Bilateral pleural effusion J90 CHF exacerbation I50.9 Urinary retention R33.9 Prostate cancer C61 Acute respiratory failure with hypoxia J96.01 UTI (urinary tract infection) N39.0 Hypertension I10 Hyperlipidemia E78.5 Elevated troponin R79.89 Atrial fibrillation I48.91
[2023-09-16] MEDS: APIXABAN 5 MG TABLET PO SCH (20:21)
[2023-09-17] MEDS ORDERED: MELATONIN 3 MG TAB PO STA (02:01)
[2023-09-17 06:12] LABS: Basophils # (auto) 0.07 K/uL (0.00-0.20); Basophils % (auto) 1.2 %; Eosinophils # (auto) 0.18 K/uL (0.00-0.50); Eosinophils % (auto) 3.1 %; Hematocrit (blood only) 43.5 % (42.0-52.0); Immature Granulocytes # (auto) 0.01 K/uL (0.01-0.20); Immature Granulocytes % (auto) 0.2 %; Lymphocytes # (auto) 1.09 K/uL (1.20-3.40); Lymphocytes % (auto) 18.5 %; Mean Corpuscular Hemoglobin 28.7 pg (25.0-34.0); Mean Corpuscular Hgb Conc 32.2 g/dL (32.0-36.0); Mean Corpuscular Volume 89.1 fL (80.0-100.0); Mean Platelet Volume 9.8 fL (9.4-12.4); Monocytes % (auto) 8.5 %; Neutrophils # (auto) 4.03 K/uL (1.40-6.50); Neutrophils % (auto) 68.5 %; Platelet Count 209 K/uL (130-400); RDW Coefficient of Variation 18.1 % (11.5-14.5); RDW Standard Deviation 59.7 fL (36.4-46.3); Red Blood Count 4.88 M/uL (4.70-6.10); White Blood Count 5.88 K/ul (4.8-10.8)
[2023-09-17 06:37] LABS: Albumin Globulin Ratio 1.4 (0.9-2); Albumin Level 4.2 gm/dl (3.4-5.0); BUN Creatinine Ratio 15.3 (10-20); Bilirubin,Total 2.2 mg/dl (0.2-1.0); Calcium 9.9 mg/dl (8.6-10.3); Est GFR (African American) 40.9 ml/min; Est GFR (Non-African American) 35.3 ml/min; Globulin 2.9 gm/dl (2.5-4.0); Magnesium 2.2 mg/dl (1.7-2.4); Potassium 3.5 mmol/L (3.5-5.1); Total Protein 7.1 gm/dl (6.0-8.3)
[2023-09-17] MEDS: APIXABAN 5 MG TABLET PO SCH ×2 (08:47→21:07)
[2023-09-17] MEDS: FINASTERIDE 5 MG TAB PO SCH (08:47)
[2023-09-17] MEDS: TAMSULOSIN HCL 0.4 MG CAP PO SCH (08:47)
[2023-09-17] MEDS: PANTOprazole 40 MG TAB PO SCH ×2 (08:47→21:07)
[2023-09-17] MEDS: METOPROLOL TARTRATE 25 MG TAB PO SCH ×2 (08:47→21:07)
[2023-09-17] MEDS: cefUROXime axetil 250 MG TABLET PO SCH ×2 (08:47→21:07)
[2023-09-17] MEDS: ASCORBIC ACID 500 MG TAB PO SCH (08:47)
[2023-09-17] MEDS: FERROUS SULFATE 325 MG TAB PO SCH (08:47)
[2023-09-17] MEDS: POTASSIUM CHLORIDE 20 MEQ/15 ML UDC PO SCH (08:48)
[2023-09-17] MEDS: FUROSEMIDE 40 MG/4 ML VIAL IV SCH ×2 (08:48→21:07)
--- NOTE | 2023-09-17 10:04 | Cardiology Consultation ---
Date of Consultation September 17, 2023 Assessment & Plan (1) Bilateral pleural effusion: (2) CHF exacerbation: (3) Hypertension: (4) Hyperlipidemia: (5) Atrial fibrillation: Plan Patient is a 73 year old male with pertinent PMHx significant for CHF, A-fib, HTN, HLD who presented with progressive SOB and LE edema. #HFmrEF: - Continue diuresis to address acute CHF exacerbation - Recommend that patient weigh himself daily following discharge + take additional dose of Lasix if weight increases significantly day to day - Recommend sodium restriction to less than 2g daily - Echo 09/16/23 significant for EF of 40-45% and development of mild LV dysfunction compared to echo done in 03/2023 - Although patient had slight elevation of serial troponin, EKGs without evidence of acute or past ischemic event and patient without current or past history of angina. As such, do not see a need for emergent workup - recommend outpatient stress testing to evaluate for ischemic cardiomyopathy. - Recommend converting Metoprolol tartrate to succinate formulation - Recommend Lisinopril 5mg daily with BMP check tomorrow #Atrial Fibrillation: - Continue Metoprolol - Continue Eliquis #HTN: - As above Supervising Physician Co-Signing Physician Notes Patient seen and examined. Agree with assessment and plan as outlined by Dr. Mendoza. Mild left ventricular dysfunction with evidence of hypervolemia. Admits to dietary indiscretion with salt. Permanent atrial fibrillation, rate control and long-term anticoagulation strategy. Plan 1. Would change metoprolol tartrate to metoprolol succinate. 2. Trial of low-dose lisinopril. Check PRP tomorrow. 3. Would continue intravenous Lasix until BUN and creatinine increase. 4. Salt restricted diet. 5. Will likely require oral Lasix on a daily basis on discharge. 6. Daily weights and sliding-scale diuretics. 7. Outpatient Lexiscan stress test to rule out CAD as cause of LV dysfunction. History of Present Illness Attending Physician: Anber Iqbal MD History of Present Illness Patient is a 73 year old male with pertinent PMHx significant for CHF, A-fib, HTN, HLD who presented with progressive SOB and LE edema. Patient states that he does not routinely weigh himself at home but states that his weight in the ED was roughly 20 pounds above what he typically weighs at office visits. On evaluation this morning, patient notes that he has responded well to Lasix, though lower extremity edema is still above baseline. Reports improvement in SOB, still experiences orthopnea. Overnight heart rate 80s-110s per telemetry. Denies current or history of chest pain. Denies h/o RI. Allergies Allergy/AdvReac Type Severity Reaction Status Date / Time No Known Allergies Allergy Verified 09/14/23 21:17 Home Medications Medication Instructions Recorded Confirmed Type tdn-njcjezbpxnhxs-ctjiskembwrvg 1 tab PO DAILY PRN Allergy Symptoms 05/13/23 09/14/23 History tablet finasteride 5 mg tablet (Proscar) 5 mg PO QAM 05/13/23 09/14/23 History tamsulosin 0.4 mg capsule 0.4 mg PO QAM 05/13/23 09/14/23 History ascorbic acid (vitamin C) 500 mg 500 mg PO QAM 05/22/23 09/14/23 History tablet (Vitamin C) ferrous sulfate 325 mg (65 mg 325 mg PO QAM 05/22/23 09/14/23 History iron) tablet metoprolol tartrate 50 mg tablet 75 mg (1.5 x 50 mg) PO BID 30 days 06/01/23 09/14/23 Rx #60 tabs pantoprazole 40 mg tablet,delayed 40 mg PO QAM #30 tabs 06/01/23 09/14/23 Rx release (Protonix) Patient History Medical History Atrial fibrillation Acute blood loss anemia Gross hematuria Adenocarcinoma of prostate History of recent hospitalization admitted to [facility] on 03/17 obstructive renal failure Mitral regurgitation GERD (gastroesophageal reflux disease) Enlarged prostate Hearing deficit BL VICK PRN Atrial fibrillation per pt, dx'd 6 mo ago. on Eliquis. 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 Urinary retention Obstructive nephropathy Acute kidney injury Hyperlipidemia Hypertension Umbilical hernia Surgical History S/P TURP History of metal removed from eye History of cataract surgery History of tonsillectomy History of appendectomy Family History Father Laryngeal cancer Other No family history of adverse response to anesthesia Social History Smoking Status: Former smoker Tobacco Type: Cigarettes Cigarettes Per Day: 30 years ago; Second Hand Exposure: No; Do You Dip or Chew Tobacco: Yes; Hx Alcohol Use: No Hx Substance Use: No Preferred Language: [place] Communication Ability: Effective Visual Impairment: Limited Hearing Ability: Hard of Hearing Chest Pain Coordinator Required: No Beliefs That Will Affect Care: None marital status: Single Current Living Situation: Alone current occupational status: retired Feels Safe at Home: Yes Diet: regular caffeine: No Dental Care, Regularly: No Physical Activity Frequency: Does not Exercise Seatbelt Use: never Sunscreen Use: Yes (Protective clothing ) Assistive Devices: None Review of Systems Review of Systems: as per HPI Physical Exam Constitutional: WD/WN, vitals as above no acute distress Respiratory: Normal respiratory effort, mildly diminished lung sounds in bases bilaterally, no crackles appreciated. Cardiovascular: Rate/Rhythm: regular rate and + irregularly irregular Vessels: no JVD Extremities: + edema (Bilateral LEs with 2+ pitting edema) Skin: no rashes, warm and dry Psychiatric: A+Ox3, euthymic affect Results & Data Vital Signs (Past 12 Hours) Vital Signs Temp Pulse Pulse Resp BP Pulse Ox O2 Del Method 09/17/23 08:35 36.5 C 107 H 167/91 H 90 Room Air 09/17/23 03:41 36.6 C 90 18 150/91 H 92 Room Air 09/17/23 02:18 36.5 C 91 H 18 161/103 H 96 Room Air 09/17/23 02:09 78 157/88 H 09/16/23 23:59 102 H Laboratory Results Abnormal lab results 09/16/23 09/17/23 Range/Units 20:00 05:40 RDW Std Deviation 59.7 H (36.4-46.3) fL RDW Coeff of Efrain 18.1 H (11.5-14.5) % Lymph # (Auto) 1.09 L (1.20-3.40) K/uL BUN 28 H (6-23) mg/dl Creatinine 1.83 H (0.6-1.4) mg/dl Glucose 106 H (70-99(Fasting)) mg/dl POC Glucose 137 H (70-99) mg/dl Total Bilirubin 2.2 H (0.2-1.0) mg/dl Diagnostic Findings Chest X-Ray 09/14/23 15:26 SINGLE VIEW CHEST CLINICAL HISTORY: Weight gain. Lower extremity edema FINDINGS: A PA chest radiograph is compared to study dated 03/17/2023. The heart is enlarged noting atherosclerotic calcification of the thoracic ureter. There is mild pulmonary vascular congestion. There are right larger than left pleural effusions with dependent atelectasis. No pneumothorax is seen. The skeletal structures are osteopenic. The bony thorax is grossly intact. IMPRESSION: 1. Cardiomegaly with mild pulmonary vascular congestion. 2. Right larger than left pleural effusions with dependent atelectasis. ACT 112: Negative or not required by law. Electronically signed by: Ubaldo Zapata M.D. 09/14/2023 4:23 PM Venous Doppler Study 09/14/23 15:26 BILATERAL LOWER EXTREMITY VENOUS DOPPLER HISTORY: R>L lower ext edema COMPARISON STUDY: None. FINDINGS: There is normal compressibility, flow, and augmentation within the bilateral lower extremity deep venous systems. The calf vessels are not well assessed due to the subcutaneous edema within the lower leg. These appear to be grossly patent. IMPRESSION: No definite DVT within the right or left lower extremity. ACT 112: Negative or not required by law. Electronically signed by: Javier Tolentino M.D. 09/14/2023 6:09 PM Coding Level of Care Code 91038 INT INP/OBS CARE 3/75MIN Diagnoses Bilateral pleural effusion J90 CHF exacerbation I50.9 Hypertension I10 Hyperlipidemia E78.5 Atrial fibrillation I48.91 Resident Activity Tracking Resident Involvement: Resident Care Provided Care Provided: Adult Hospital Medicine
--- NOTE | 2023-09-17 18:50 | Hospitalist Progress Note ---
Date of Service September 17, 2023 Assessment & Plan (1) CHF exacerbation: Plan: Diastolic to have acute on chronic, patient did not have ischemic work-up, was responded well to Lasix, consult with cardiology, recommended outpatient ischemic work-up, continue IV diuretic, possible switch to oral tomorrow, initially patient was hypoxic but currently on room air, see patient has lower extremity edema, (2) Acute respiratory failure with hypoxia: Plan: Resolved secondary to above plan has not mentioned above (3) Urinary retention: Plan: Status post Link catheter placement, patient has a prostate cancer with metastasis, patient was supposed to follow-up with oncology but he did not, (4) UTI (urinary tract infection): Plan: With E. coli pansensitive, currently on Ceftin, with discontinue Ceftin tomorrow (5) Inguinal adenopathy: Plan: Possibly secondary to metastatic disease, patient has a bulky lymphadenopathy on right inguinal area, I offered the patient oncology consult for biopsy, however he preferred to follow as an outpatient (6) Prostate cancer: Plan: Metastatic according to the urology note patient was referred to oncologist but he did not follow-up , urology did not recommend any inpatient work-up diagnostically or therapeutically (7) Hypertension: Plan: Failure continue with current management (8) Atrial fibrillation: Plan: Continue Eliquis during this admission Eliquis was discontinued after patient had a procedure but apparently there was resumed. (9) Hyperlipidemia: (10) Elevated troponin: Plan Possible discharge tomorrow, for now continue IV diuretic Admission and Anticipated Discharge Date Admission Date: September 14, 2023 Subjective The patient complains of having right inguinal mass, Review of Systems Review of Systems: The patient denies chest pain, palpitations, cough, sore throat, fevers, chills, sweats, nausea, vomiting, diarrhea , constipation, abdominal pain, pelvic pain, blood in urine or stool, dysuria, urinary frequency or urgency, lightheadedness, dizziness, headache, memory loss, loss of consciousness, rash, abnormal bruising or bleeding, imbalance, focal weakness, numbness or tingling in arms, generalized arthralgias or myalgias, back or neck pain, or night sweats. The review of systems is otherwise negative other than for that already noted above, and at least 10 systems have been reviewed. Physical Exam Physical Exam: General: well-appearing, no acute distress HEENT: Normocephalic Pulmonary: Nonlabored respirations, supplemental O2 in place CV: bilateral lower extremity edema Abdomen: Nondistended, nontender Extremities: Moves all 4 spontaneously Neuro: No gross deficits Psych: alert and oriented, normal mood Skin: Warm, dry, no rashes noted : Link draining clear yellow urine Results & Data Results & Data Vital Signs (Past 12 Hours) Vital Signs Temp Pulse Pulse BP Pulse Ox O2 Del Method 09/17/23 15:27 113 H 141/97 H 95 Room Air 09/17/23 11:50 103 H 165/105 H 96 Room Air 09/17/23 08:35 36.5 C 107 H 167/91 H 90 Room Air 09/17/23 08:00 118 H 09/17/23 08:00 Room Air PG Care Time/CCT Total # of Minutes Spent Total Time Spent with Patient: Total time spent is greater than 50% in coordination of care (as documented) at patient's floor/unit and/or counseling patient: Coding Level of Care Code 23128 SUB INP/OBS CARE 3/50MIN Diagnoses CHF exacerbation I50.9 Acute respiratory failure with hypoxia J96.01 Urinary retention R33.9 UTI (urinary tract infection) N39.0 Inguinal adenopathy R59.0 Prostate cancer C61 Hypertension I10 Atrial fibrillation I48.91 Hyperlipidemia E78.5 Elevated troponin R79.89
[2023-09-18 07:29] LABS: BUN Creatinine Ratio 17.2 (10-20); Blood Urea Nitrogen 35 mg/dl (6-23); Calcium 10.1 mg/dl (8.6-10.3); Carbon Dioxide 31 mmol/L (21-32); Chloride 101 mmol/L (98-107); Creatinine Clr Calc Pharmacy 32.3 ml/min; Est GFR (African American) 35.9 ml/min; Glucose 104 mg/dl (70-99(Fasting))
[2023-09-18] MEDS: PANTOprazole 40 MG TAB PO SCH (07:46)
[2023-09-18] MEDS: cefUROXime axetil 250 MG TABLET PO SCH (07:46)
[2023-09-18] MEDS: APIXABAN 5 MG TABLET PO SCH (07:46)
[2023-09-18] MEDS: ASCORBIC ACID 500 MG TAB PO SCH (07:46)
[2023-09-18] MEDS: FERROUS SULFATE 325 MG TAB PO SCH (07:47)
[2023-09-18] MEDS: POTASSIUM CHLORIDE 20 MEQ/15 ML UDC PO SCH (07:47)
[2023-09-18] MEDS: FUROSEMIDE 40 MG/4 ML VIAL IV SCH (07:47)
[2023-09-18] MEDS: FINASTERIDE 5 MG TAB PO SCH (07:47)
[2023-09-18] MEDS: METOPROLOL TARTRATE 25 MG TAB PO SCH (07:47)
[2023-09-18] MEDS: TAMSULOSIN HCL 0.4 MG CAP PO SCH (10:36)
--- NOTE | 2023-09-18 21:34 | Discharge Summary ---
Date of Service September 18, 2023 Admission HPI Per Admitting Provider The patient is a 73-year-old male with a past medical history including prostate cancer, erectile dysfunction, UTI, mitral vegetation, hyperlipidemia, hypertension. He presents to the emergency department with symptoms as noted above. Significant laboratories: Creatinine 1.79, glucose 107, troponin 42.4, BNP 1710 Urinalysis looks positive Chest x-ray shows vascular congestion with right greater than left pleural effusions Venous Doppler bilaterally lower extremities negative for DVT Principal Diagnosis CHF exacerbation diastolic type, bulky right inguinal lymphadenopathy, UTI, urinary retention Discharge Exam General: well-appearing, no acute distress HEENT: Normocephalic Pulmonary: Nonlabored respirations, supplemental O2 in place CV: bilateral lower extremity edema Abdomen: Nondistended, nontender Extremities: Moves all 4 spontaneously Neuro: No gross deficits Psych: alert and oriented, normal mood Skin: Warm, dry, no rashes noted : Link draining clear yellow urine Discharge Data Allergies Allergy/AdvReac Type Severity Reaction Status Date / Time No Known Allergies Allergy Verified 09/14/23 21:17 Consultations 09/14/23 20:02 ED Decision to Admit Stat 09/14/23 23:22 Consult Urology Routine 09/16/23 19:34 Consult Cardiology Routine Ordered Studies 09/14/23 15:26 US venous doppler [facility] Stat Hospital Course (1) CHF exacerbation: Diastolic to have acute on chronic, patient did not have ischemic work-up, was responded well to Lasix, consult with cardiology, recommended outpatient ischemic work-up, echocardiogram showed diastolic heart failure, patient is on IV diuretic responded well, patient advised to stay for couple of longer days however he refuses to going home. Patient discharged on oral Lasix, patient advised to follow-up with cardiology in 1 to 2 weeks, patient advised to have BMP in 2 weeks, avoid salts (2) Acute respiratory failure with hypoxia: Resolved secondary to above plan has not mentioned above (3) Urinary retention: Upon admission to the ER patient was found to have urine retention Status post Link catheter placement, patient has a prostate cancer with metastasis, patient was supposed to follow-up with oncology but he did not, p atient instructed to follow-up with urology for outpatient voiding trial (4) UTI (urinary tract infection): With E. coli pansensitive, currently on Ceftin, with discontinue Ceftin tomorrow (5) Inguinal adenopathy: Possibly secondary to metastatic disease, patient has a bulky lymphadenopathy on right inguinal area, I offered the patient oncology consult for biopsy, however he preferred to follow as an outpatient (6) Prostate cancer: Metastatic, according to the urology note, patient was referred to oncologist but he did not follow-up , urology did not recommend any inpatient work-up diagnostically or therapeutically (7) Hypertension: continue with current management (8) Atrial fibrillation: Continue Eliquis during this admission Eliquis was discontinued after patient had a procedure but apparently there was resumed. (9) Hyperlipidemia: (10) Elevated troponin: Total Time Total Time Spent Total Time Spent (In Minutes): 45 minutes Discharge Plan Discharge Items Patient Disposition: Home - Self-Care Reason For Visit: CHF EX., NSTEMI Discharge Diagnosis: CHF exacerbation diastolic type, right groin lymphadenopathy most likely secondary to malignancy, urinary retention Condition on Discharge: Good Activity: Resume your previous activity Lifting: Gradually increase as tolerated Bathing: No limitations Sexual Activity: When tolerated Exercise/Sports: None Driving/Machine Use: No limitations Non-emergency contact: Primary Care Provider, Surgeon and Speech And Language Tutor Call non-emergency contact if: you have any medication questions and your symptoms worsen Follow-up/Referrals: Domo Buenrostro MD [Physician] - 09/24/23 Harish Mantilla MD [Primary Care Provider] - 09/28/23 2:00 pm (Follow up scheduled on 09/28/23 @ 2 pm) Harish Waddell MD [Physician] - (Urology will call you with a follow up appointment) Diet: Heart Healthy Addtl Attending Provider Instructions: You are diagnosed with heart failure, you need outpatient stress test, and you need to follow-up with cardiology .you are started on water pill, given you are started on water pill, you need to follow-up with your primary care doctor in 1 week to check your kidney function (BMP) You are diagnosed with urinary retention, he will follow-up with urology in 1 week, he will go home with a Link catheter in your bladder, urology office will try to to take the Link out and to proceed with voiding trial, he will start the new medications clear retention You are diagnosed with metastatic prostate cancer, please follow-up with your cancer doctor as instructed You have a bulky mass in the right groin this could be metastatic cancer please call cancer doctor and make an appointment You have irregular heart rhythm which is called A-fib, you were started on blood thinner called Eliquis Pending Studies at Discharge: Yes Studies:: Outpatient stress test Stand-Alone Forms: My [facility], Smoking Cessation Medications and DC Order Prescriptions: New Eliquis 5 mg Tablet 5 mg PO BID Qty: 90 0RF furosemide [Lasix] 40 mg tablet 40 mg PO BID Qty: 120 0RF potassium chloride 20 mEq tablet extended release 20 meq PO BID Qty: 90 0RF Continued metoprolol tartrate 50 mg tablet 75 mg PO BID 30 Days Qty: 60 5RF pantoprazole [Protonix] 40 mg tablet,delayed release (DR/EC) 40 mg PO QAM Qty: 30 5RF tamsulosin 0.4 mg capsule 0.4 mg PO QAM finasteride [Proscar] 5 mg tablet 5 mg PO QAM [id number] Tablet 1 tab PO DAILY PRN (Reason: Allergy Symptoms) ascorbic acid (vitamin C) [Vitamin C] 500 mg Tablet 500 mg PO QAM ferrous sulfate 325 mg (65 mg iron) Tablet 325 mg PO QAM Discharge Orders: Discharge Order- CHF (Routine); Ordered 09/18/23 Ordered By: Abner Ortez/Other Patient Handouts: AFib Admission Data Admit Date/Time: 09/14/23 20:35 Attending Provider: Abner Iqbal Admit Provider: Erick Gaffney Primary Care Provider: Harish Mantilla Other Providers: Erick Gaffney; Harish Waddell; Domo Buenrostro Other Interventions: Discharge Summary Assessment (RN) Last Done: 09/18/23 12:29 Coding Level of Care Code 10478 INP/OBS DISCH >30 MIN Diagnoses CHF exacerbation I50.9 Acute respiratory failure with hypoxia J96.01 Urinary retention R33.9 UTI (urinary tract infection) N39.0 Inguinal adenopathy R59.0 Prostate cancer C61 Hypertension I10 Atrial fibrillation I48.91 Hyperlipidemia E78.5 Elevated troponin R79.89
== END 2023-09-18 13:56 | disposition home or self-care (01) | DRG 291 ==
LOC: ED 15:04 → EDINP 20:35 → SUATTDRO 20:35 → 2S 23:22
DX: I48.91 Unspecified atrial fibrillation; R79.89 Other specified abnormal findings of blood chemistry; Z79.899 Other long term (current) drug therapy; R33.9 Retention of urine, unspecified; Z87.891 Personal history of nicotine dependence; J96.01 Acute respiratory failure with hypoxia; I13.0 Hypertensive heart and chronic kidney disease with heart failure and stage 1 through stage 4 chronic kidney disease, or unspecified chronic kidney disease; I50.33 Acute on chronic diastolic (congestive) heart failure; C61 Malignant neoplasm of prostate; N18.30 Chronic kidney disease, stage 3 unspecified; B96.20 Unspecified Escherichia coli [E. coli] as the cause of diseases classified elsewhere; E78.5 Hyperlipidemia, unspecified; N39.0 Urinary tract infection, site not specified